=== PATIENT | male | born 1940 | race Caucasian/White ===

== ENCOUNTER → 2017-01-07 | Outpatient (CLI) | payer OTHER ==
[~2017-01-07] MED LIST: ASCAUNK PO; CMD5 PO; EPP3/2 IM; LISI-729 PO; LPRUNK PO; MXZC25 PO; NAPR-1169 PO; PRLSR20 PO; RED600TA PO; TRAM-10 PO; [UNRECOGNIZED DRUG - OTHER] PO
[2017-01-07 12:56] LABS: BASO % 0.5 %; BASO ABS # 0.03 K/uL (0-0.2); COMPLETE YES; EOS % 4.1 %; HEMATOCRIT 46.5 % (42-52); IG% 0.2 %; LYMPH % 24.2 %; LYMPH ABS # 1.43 K/uL (1.2-3.4); MEAN CELL VOLUME 96.9 fL (80-100); MEAN CORPUSCULAR HEMOGLOBIN 32.9 pg (25-34); MEAN PLATELET VOLUME 11.4 fL (7.4-10.4); MONO % 8.4 %; NEUT % 62.6 %; PLATELET COUNT 175 K/uL (130-400); WHITE BLOOD COUNT 5.92 K/uL (4.8-10.8)
[2017-01-07 13:01] LABS: ALT/SGPT 41 U/L (12-78); BLOOD UREA NITROGEN 17 mg/dl (7-18); CALCIUM 9.2 mg/dl (8.5-10.1); CARBON DIOXIDE 29 mmol/L (21-32); CHOLESTEROL 190 mg/dl (0-200); CREATININE 1.13 mg/dl (0.60-1.40); GLUCOSE 183 mg/dl (70-99)
[2017-01-07 13:09] LABS: ESTIMATED AVERAGE GLUCOSE 128 mg/dl; HA1C FLAG Normal (Normal)
[2017-01-07 13:45] LABS: ALB/GLOB RATIO 0.9 (0.9-2); ALKALINE PHOSPHATASE 78 U/L (45-117); AST/SGOT 22 U/L (15-37); CHLORIDE 102 mmol/L (98-107); CHOLESTEROL/HDL RATIO 4.4; HDL CHOLESTEROL 43 mg/dl; LDL CHOLESTEROL CALCULATED 113 mg/dl; SODIUM 137 mmol/L (136-145); TRIGLYCERIDES 168 mg/dl (0-150); VERY LOW DENSITY LIPOPROT CALC 34 mg/dl
== END | disposition home or self-care (01) ==
LOC: C.LABPVFM 09:49
PROVIDERS: ATTEND Nurse Practitioner Family
DX: I10 Essential (primary) hypertension (principal); I48.91 Unspecified atrial fibrillation; E78.5 Hyperlipidemia, unspecified; I25.10 Atherosclerotic heart disease of native coronary artery without angina pectoris; R73.01 Impaired fasting glucose

== ENCOUNTER → 2017-05-11 | Outpatient (CLI) | payer OTHER ==
[2017-05-11 13:46] LABS: HEMOGLOBIN A1C 6.3 % (4.5-5.6)
[2017-05-11 14:52] LABS: ALBUMIN 3.5 gm/dl (3.4-5.0); ALT/SGPT 43 U/L (12-78); BLOOD UREA NITROGEN 10 mg/dl (7-18); CALCIUM 9.2 mg/dl (8.5-10.1); CARBON DIOXIDE 27 mmol/L (21-32); CHOLESTEROL 179 mg/dl (0-200); CREATININE 1.08 mg/dl (0.60-1.40); GLUCOSE 153 mg/dl (70-99); POTASSIUM 3.8 mmol/L (3.5-5.1); SODIUM 139 mmol/L (136-145)
[2017-05-11 14:57] LABS: ALKALINE PHOSPHATASE 65 U/L (45-117); AST/SGOT 25 U/L (15-37); LDL CHOLESTEROL CALCULATED 109 mg/dl; TOTAL PROTEIN 7.1 gm/dl (6.4-8.2)
== END | disposition home or self-care (01) ==
LOC: C.LABPVFM 11:34
PROVIDERS: ATTEND Family Medicine
DX: Z00.00 Encounter for general adult medical examination without abnormal findings (principal)

== ENCOUNTER 2023-02-23 17:05 | Inpatient (IN) ==
--- NOTE | 2023-02-23 17:18 | Emergency Department Note ---
Impression & Plan Atrial fibrillation with rapid ventricular response, Non-ST elevation MD (NSTEMI), CHF (congestive heart failure), Thrombocytopenia, Acute hypokalemia ED Provider Note HISTORY OF PRESENT ILLNESS: Patient is an 82-year-old male presenting with shortness of breath. Patient presents via EMS after his [id number] found him breathing rapidly earlier today. Patient reports he was feeling short of breath. 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 On EMS arrival, the patient's heart rate was in the 180s. He did not initially want to go to the hospital but was successfully talked into being evaluated. Patient reports a history of atrial fibrillation and CHF. He is on Coumadin but reports that he has not been taking it as he is supposed to. He states that he has no chest pain and does not have any palpitations. He states that earlier today he was bending over to pick something up off the ground when he got dizzy when he stood up and bumped his head on a stool. He denies loss of consciousness. He denies any abdominal pain. Denies any recent fevers or cough. ROS: as above PHYSICAL EXAM: Constitutional: Patient appears in no acute distress. HENT: Head: Normocephalic and atraumatic. Eyes: EOMI, PERRL Mouth/Throat: Mucous membranes moist. Neck: Trachea midline. Neck supple. Cardiovascular: Tachycardic with a regular rhythm. No murmurs, rubs or gallops. Intact distal pulses. Pulmonary/Chest: No respiratory distress. Breath sounds clear and equal bilaterally. Abdominal: Abdomen soft, no tenderness, rebound or guarding. Musculoskeletal: No edema, tenderness or deformity noted. Skin: Warm and dry. No rash, erythema, pallor or cyanosis Psychiatric: Appropriate mood and affect for situation. Neurological: Alert and keenly responsive. CN II-XII grossly intact, moving all extremities equally and fully. MDM: - Vitals signs showed tachycardia. - History obtained via patient. Patient presents with shortness of breath. Patient reportedly was having shortness of breath and was tachypneic today and [id number] called 911. Patient reports a history of A-fib and CHF. He is on Coumadin but states he has not been taking it as prescribed because he has missed some doses. Denies any chest pain or palpitations on arrival. He reports that he did fall earlier today secondary to getting dizzy when he stood up. Denies loss of consciousness. Denies any recent fevers or cough. - Chronic conditions affecting care: Afib; CAD; CAD; CHF; HTN; HLD - Differential diagnoses include, but are not limited to: Congestive heart failure; acute coronary syndrome; COPD/asthma exacerbation; pulmonary edema; dysrhythmia - Order placed for continuous cardiac monitoring. At this time, monitor showed rate of 132 bpm with irregular rhythm rhythm, per my interpretation. - External medical records reviewed. EMS run sheet was reviewed. Patient was given a total of 20 mg of IV Cardizem and route of 500 cc of fluid. - EKG interpreted by myself showed atrial fibrillation with rapid ventricular rate. Rate 129 bpm. QT 278. No acute ischemic changes noted. - Laboratory workup interpreted by myself showed leukocytosis (WBC 15.6); thrombocytopenia (plt 115); elevated anion gap (17); hypokalemia (K 3.2); elevated BNP (581); NSTEMI (troponin 116.8); normal TSH - COVID/flu/RSV negative - CXR showed cardiomegaly, per my interpretation. - Patient's heart rate was initially in the 120s on arrival after he got 20 mg bolus of Cardizem. However, his heart rate started to increase to the 140s to 150s range. He was started on a Cardizem drip. - Discussed case with patient's plastics nurse, Dr. Flynn. He recommended Lopressor dosing. Reports that the patient is in chronic A-fib and need to identify what is driving his rapid rate at this point. 5 mg of IV Lopressor ordered. - Discussion was had with client care coordinator about patient's case and need for admission - Hospitalist consulted for admission. Requested patient be given two runs of IV potassium, 40 mEq PO potassium and 1g IV magnesium. These electrolyte replacements were ordered. - [facility] and [facility]. I have personally spent 51 minutes of critical care time in the direct management of this patient. This includes bedside care, interpretation of diagnostic studies, and testing, discussion with consultants, patient, and family members, and other required patient management activities. This 51 minutes is in excess of all separately billable procedures. 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 Permanent atrial fibrillation CAD (coronary artery disease) Cardiomyopathy Carotid artery stenosis, asymptomatic Chest wall pain Dyslipidemia History of stroke without residual deficits Hyperglycemia HTN (hypertension) Spinal stenosis Vitamin D deficiency Impaired fasting glucose Peripheral vascular disease Surgical History S/P prostatectomy History of tonsillectomy Family History Uncle Colorectal cancer Father Myocardial infarction Grandfather (Paternal) Myocardial infarction Denies family history of Ovarian cancer Prostate cancer Breast cancer Social History (Updated 10/27/22 @ 10:31 by Vero Prakash LPN) Smoking Status: Never smoker Tobacco Type: Smokeless Tobacco (Dip or Chew) Second Hand Exposure: No; Do You Dip or Chew Tobacco: Yes; Hx Alcohol Use: No Hx Substance Use: No Preferred Language: German Communication Ability: Effective Visual Impairment: Limited Hearing Ability: Normal 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 Beliefs That Will Affect Care: None marital status: Current Living Situation: Spouse current occupational status: retired How many Children do You have: 3 Feels Safe at Home: Yes Childhood Exposure to Second-Hand Smoke: Yes Diet: regular caffeine: Yes (COFFEE) during the past year weight has: remained stable Dental Care, Regularly: No Physical Activity Frequency: Does not Exercise Seatbelt Use: always Sunscreen Use: No Do you think of yourself as: straight/heterosexual Gender Identity: Male Assistive Devices: Cane, Denture - Upper, Denture - Lower, Glasses and Walker Allergies Allergies Allergy/AdvReac Type Severity Reaction Status Date / Time Cephalosporins Allergy Severe ANAPHYLAXIS Verified 10/27/22 10:26 TO PCN diazepam Allergy Unknown UNKNOWN Verified 10/27/22 10:26 Penicillins Allergy Unknown ANAPHYLAXIS Verified 10/27/22 10:26 simvastatin Allergy Unknown MYALGIA Verified 10/27/22 10:26 shellfish derived Allergy Verified 10/27/22 10:26 codeine AdvReac Mild HEADACHE Verified 10/27/22 10:26 shrimp AdvReac Verified 10/27/22 10:26 Home Meds Home Medications Medication Instructions Recorded Confirmed acetaminophen 500 mg tablet 1,000 mg PO Q8H 12/13/19 10/27/22 (Tylenol Extra Strength) calcium carbonate 600 mg-vitamin 1 tab PO DAILY 12/13/19 10/27/22 D3 20 mcg (800 unit) tablet (Caltrate with Vitamin D3) Previous Rx's Medication Instructions Recorded linaclotide 145 mcg capsule 145 mcg PO DAILY #30 caps 05/08/20 (Linzess) nitroglycerin 0.4 mg sublingual 0.4 mg sublingual Q5M PRN chest 08/20/20 tablet pain #25 tabs betamethasone dipropionate 0.05 % 1 applic topical DAILY #60 mL 04/30/21 lotion lactulose 10 gram/15 mL oral 20 g (30 mL) PO BID #473 mL 07/23/21 solution (Enulose) triamterene 37.5 1 cap PO WK #15 caps 08/31/21 mg-hydrochlorothiazide 25 mg capsule metoprolol tartrate 100 mg tablet 50 mg (1/2 x 100 mg) PO Q12H #90 11/26/21 tabs warfarin 5 mg tablet 5 mg PO .COMPLEX #60 tabs 11/27/21 gabapentin 300 mg capsule 300 mg PO BID #60 caps 03/31/22 omeprazole 20 mg capsule,delayed 20 mg PO DAILY #30 caps 05/30/22 release Results & Data (ED) Vital Signs Vital Signs - 24 hr 02/23/23 17:13 02/23/23 17:34 02/23/23 17:35 Temperature 36.9 C Temperature Source Oral Pulse Rate 126 H 148 H 132 H Pulse Rate from SpO2 Sensor 128 H Pulse Rhythm Respiratory Rate 29 H 22 Respiratory Effort / Characteristics Spontaneous Accessory Muscle Use Respiratory Depth Shallow Blood Pressure 118/86 117/82 Blood Pressure Mean 96 93 Pulse Oximetry 95 93 Oxygen Delivery Method Room Air Sepsis Recent Fever Within 48 Hours No Sepsis New/Unexplained Change in Mental Status No Sepsis Action Taken by Nursing Physician Notified 02/23/23 17:50 02/23/23 17:55 02/23/23 18:02 Temperature Temperature Source Pulse Rate 142 H 121 H Pulse Rate from SpO2 Sensor 134 H Pulse Rhythm Irregular Respiratory Rate 24 26 H Respiratory Effort / Characteristics Respiratory Depth Blood Pressure Blood Pressure Mean Pulse Oximetry 99 92 Oxygen Delivery Method Room Air Room Air Sepsis Recent Fever Within 48 Hours Sepsis New/Unexplained Change in Mental Status Sepsis Action Taken by Nursing 02/23/23 18:03 02/23/23 18:30 02/23/23 19:00 Temperature Temperature Source Pulse Rate 118 H 150 H 127 H Pulse Rate from SpO2 Sensor 120 H 155 H 138 H Pulse Rhythm Respiratory Rate 29 H 29 H 27 H Respiratory Effort / Characteristics Respiratory Depth Blood Pressure 121/97 102/88 142/89 H Blood Pressure Mean 105 92 106 Pulse Oximetry 92 95 95 Oxygen Delivery Method Sepsis Recent Fever Within 48 Hours Sepsis New/Unexplained Change in Mental Status Sepsis Action Taken by Nursing 02/23/23 19:29 Temperature Temperature Source Pulse Rate 154 H Pulse Rate from SpO2 Sensor Pulse Rhythm Respiratory Rate Respiratory Effort / Characteristics Respiratory Depth Blood Pressure 121/90 Blood Pressure Mean Pulse Oximetry Oxygen Delivery Method Sepsis Recent Fever Within 48 Hours Sepsis New/Unexplained Change in Mental Status Sepsis Action Taken by Nursing Laboratory Data 02/23/23 17:35 02/23/23 17:35 Lab Results 02/23/23 02/23/23 Range/Units 17:35 17:45 WBC 15.60 H (4.8-10.8) K/ul RBC 4.02 L (4.70-6.10) M/uL Hgb 13.1 L (14.0-18.0) g/dl Hct 37.5 L (42.0-52.0) % MCV 93.3 (80.0-100.0) fL MCH 32.6 (25.0-34.0) pg MCHC 34.9 (32.0-36.0) g/dL RDW Std Deviation 45.2 (36.4-46.3) fL RDW Coeff of Jean-Paul 13.4 (11.5-14.5) % Plt Count 115 L (130-400) K/uL MPV 11.7 (9.4-12.4) fL Immature Gran % (Auto) 0.9 % Neut % (Auto) 83.3 % Lymph % (Auto) 3.9 % [place] % (Auto) 11.8 % Eos % (Auto) 0.0 % Baso % (Auto) 0.1 % Neut # (Auto) 13.00 H (1.40-6.50) K/uL Lymph # (Auto) 0.61 L (1.20-3.40) K/uL [place] # (Auto) 1.84 H (0.11-0.59) K/uL Eos # (Auto) 0.00 (0.00-0.50) K/uL Baso # (Auto) 0.01 (0.00-0.20) K/uL Immature Gran # (Auto) 0.14 (0.01-0.20) K/uL PT 13.5 H (9.0-12.0) Seconds INR 1.2 H (0.9-1.1) Sodium 135 L (136-145) mmol/L Potassium 3.2 L (3.5-5.1) mmol/L Chloride 101 (98-107) mmol/L Carbon Dioxide 17 L (21-32) mmol/L Anion Gap 17 H (3-11) BUN 15 (6-23) mg/dl Creatinine 1.13 (0.6-1.4) mg/dl Est Cr Clr Drug Dosing 53.7 ml/min Est GFR ( Amer) 69.8 ml/min Est GFR (Non-Af Amer) 60.2 ml/min BUN/Creatinine Ratio 13.3 (10-20) Glucose 159 H (70-99(Fasting)) mg/dl Calcium 9.0 (8.6-10.3) mg/dl Magnesium 1.9 (1.7-2.4) mg/dl Total Bilirubin 1.6 H (0.2-1.0) mg/dl AST 49 H (13-39) U/L ALT 23 (7-52) U/L Alkaline Phosphatase 42 (34-104) U/L Troponin I High Sens 116.8 H* (0-20) pg/ml B-Natriuretic Peptide 581 H (0-100) pg/ml Total Protein 6.2 (6.0-8.3) gm/dl Albumin 3.3 L (3.4-5.0) gm/dl Globulin 2.9 (2.5-4.0) gm/dl Albumin/Globulin Ratio 1.1 (0.9-2) TSH 1.234 (0.300-4.500) uIu/ml SARS-CoV-2 (PCR) NEGATIVE (Negative) Administered Medications Discontinued Medications Aspirin (Aspirin Chew 324 Mg) 324 mg PO NOW STA Stop: 02/23/23 19:04 Last Admin: 02/23/23 19:29 Dose: 324 mg Documented By: RASHEEDA Diltiazem HCl 125 mg/ Dextrose 125 mls @ 5 mls/hr IV .Q24H GUCCI; Protocol Stop: 03/25/23 18:14 Last Admin: 02/23/23 18:57 Dose: 5 mg/hr, 5 mls/hr Documented By: RASHEEDA Co-signed By: EMILY Metoprolol Tartrate (Metoprolol Tartrate 1 Mg/Ml Vial) 5 mg IV NOW STA Stop: 02/23/23 19:08 Last Admin: 02/23/23 19:29 Dose: 5 mg Documented By: RASHEEDA Miscellaneous (Stat Iv Infusion Titration Per Protocol) 1 each N/A NOW STA Stop: 02/23/23 18:12 Last Admin: 02/23/23 18:57 Dose: 1 each Documented By: RASHEEDA Imaging Data Radiologist's Impression: Head CT 02/23/23 17:12 CT SCAN OF THE BRAIN WITHOUT IV CONTRAST CLINICAL HISTORY: Fall. Head injury. COMPARISON STUDY: CT of the brain dated 03/17/2010. TECHNIQUE: Unenhanced axial CT scan of the brain is performed from the vertex to the skull base. A dose lowering technique was utilized adhering to the principles of ALARA. CT DOSE: 703.85 mGy.cm FINDINGS: Brain parenchyma: There is age-related involutional change noting moderate subcortical and periventricular microangiopathic disease. There is no hemorrhage, mass effect, or evidence of acute territorial ischemia by CT criteria. Hoang-white matter differentiation is preserved. No extra-axial fluid collection is seen. Ventricles, sulci, cisterns: Prominent secondary to involutional change. Intracranial vasculature: There is atherosclerotic calcification of the cavernous carotid and vertebral artery. Calvarium: The skeletal structures are osteopenic. No depressed calvarial fracture is seen. Soft tissues: There is a small left frontal scalp contusion. Sinuses and mastoids: The paranasal sinuses are clear. The mastoid air cells are well pneumatized. Orbits: The bony orbits are grossly intact. There are bilateral ocular lens implants. IMPRESSION: There is no hemorrhage, mass effect, or evidence of acute territorial ischemia by CT criteria. ACT 112: Negative or not required by law. Electronically signed by: Severo Crevantes M.D. 02/23/2023 6:05 PM Chest X-Ray 02/23/23 17:16 SINGLE VIEW CHEST CLINICAL HISTORY: Dysrhythmia. Dyspnea. FINDINGS: An AP, portable, upright chest radiograph is compared to study dated 11/09/2010. The heart is enlarged noting atherosclerotic calcification of the thoracic aorta. The pulmonary vasculature is noncongested. Chronic interstitial thickening is similar to previous. Dependent airspace opacities are seen at both lung bases, left greater than right. No large pleural effusion or pneumothorax is seen. The skeletal structures are osteopenic. The bony thorax is grossly intact. IMPRESSION: 1. Cardiomegaly without radiographic evidence of congestive failure. 2. Dependent airspace opacities are seen bilaterally, left greater than right. This likely represents atelectasis. Correlate clinically for evidence of a superimposed pneumonitis. ACT 112: Negative or not required by law. Electronically signed by: Severo Cervantes M.D. 02/23/2023 5:35 PM Discharge Plan Visit Data Chief Complaint: Tachycardia Stated Complaint: SOB ED Provider: Lilliam Almeida Discharge Problem: Atrial fibrillation with rapid ventricular response, Non-ST elevation MD (NSTEMI), CHF (congestive heart failure), Thrombocytopenia, Acute hypokalemia Forms Stand Alone Forms: [employer] Prescriptions Prescriptions: No Action Linzess 145 mcg capsule 145 mcg PO DAILY Qty: 30 5RF lactulose [Enulose] 10 gram/15 mL solution 20 g PO BID Qty: 473 3RF Hold Instructions: not working very well. changed to senokot S triamterene-hydrochlorothiazid 37.5-25 mg capsule 1 cap PO WK Qty: 15 3RF warfarin 5 mg tablet 5 mg PO .COMPLEX Qty: 60 5RF Protocol: Dose Management Condition: Monday Dose/Route: 2.5 mg Instruction: 0.5 x 5 mg tablets Condition: Monday Dose/Route: 5 mg Instruction: 1 x 5 mg tablet Condition: Monday Dose/Route: 2.5 mg Instruction: 0.5 x 5 mg tablets Condition: Monday Dose/Route: 5 mg Instruction: 1 x 5 mg tablet Condition: Dose/Route: 2.5 mg Instruction: 0.5 x 5 mg tablets Condition: Monday Dose/Route: 5 mg Instruction: 1 x 5 mg tablet Condition: Monday Dose/Route: 2.5 mg Instruction: 0.5 x 5 mg tablets Protocol Text: Adjustment Start Date: Monday03/30/21 INR Value: 2.8 INR Date: 03/30/21 Recheck Date: 04/29/21 Rx Instructions: Take 1 tablet on Monday and Fridays and then 0.5 tablet on all other days. gabapentin 300 mg capsule 300 mg PO BID Qty: 60 2RF omeprazole 20 mg capsule,delayed release(DR/EC) 20 mg PO DAILY Qty: 30 6RF calcium carbonate-vitamin D3 [Caltrate with Vitamin D3] 600 mg(1,500mg) -800 unit tablet 1 tab PO DAILY acetaminophen [Tylenol Extra Strength] 500 mg tablet 1,000 mg PO Q8H nitroglycerin 0.4 mg tablet, sublingual 0.4 mg sublingual Q5M PRN (Reason: chest pain) Qty: 25 5RF Rx Instructions: do not exceed 3 doses per episode betamethasone dipropionate 0.05 % lotion 1 applic topical DAILY Qty: 60 1RF Rx Instructions: Apply to the scalp as needed for itching or redness. metoprolol tartrate 100 mg tablet 50 mg PO Q12H Qty: 90 3RF Referrals Referrals: Sole Ibarra MD [Primary Care Provider] -
--- NOTE | 2023-02-23 17:37 | XRay Report ---
SINGLE VIEW CHEST CLINICAL HISTORY: Dysrhythmia. Dyspnea. FINDINGS: An AP, portable, upright chest radiograph is compared to study dated 11/09/2010. The heart i s enlarged noting atherosclerotic calcification of the thoracic aorta. The pulmonary vasculature is n oncongested. Chronic interstitial thickening is similar to previous. Dependent airspace opacities are seen at both lung bases, left greater than right. No large pleural effusion or pneumothorax is seen. The skeletal structures are osteopenic. The bony thorax is grossly intact. IMPRESSION: 1. Cardiomegaly without radiographic evidence of congestive failure. 2. Dependent airspace opacities are seen bilaterally, left greater than right. This likely represents atelectasis. Correlate clinically for evidence of a superimposed pneumonitis. ACT 112: Negative or not required by law. Electronically signed by: Severo Cervantes M.D. 02/23/2023 5:35 PM
--- NOTE | 2023-02-23 18:08 | CT Scan Report ---
CT SCAN OF THE BRAIN WITHOUT IV CONTRAST CLINICAL HISTORY: Fall. Head injury. COMPARISON STUDY: CT of the brain dated 03/17/2010. TECHNIQUE: Unenhanced axial CT scan of the brain is performed from the vertex to the skull base. A do se lowering technique was utilized adhering to the principles of ALARA. CT DOSE: 703.85 mGy.cm FINDINGS: Brain parenchyma: There is age-related involutional change noting moderate subcortical and periventri cular microangiopathic disease. There is no hemorrhage, mass effect, or evidence of acute territorial ischemia by CT criteria. Hoang-white matter differentiation is preserved. No extra-axial fluid collec tion is seen. Ventricles, sulci, cisterns: Prominent secondary to involutional change. Intracranial vasculature: There is atherosclerotic calcification of the cavernous carotid and vertebr al artery. Calvarium: The skeletal structures are osteopenic. No depressed calvarial fracture is seen. Soft tissues: There is a small left frontal scalp contusion. Sinuses and mastoids: The paranasal sinuses are clear. The mastoid air cells are well pneumatized. Orbits: The bony orbits are grossly intact. There are bilateral ocular lens implants. IMPRESSION: There is no hemorrhage, mass effect, or evidence of acute territorial ischemia by CT byron weller. ACT 112: Negative or not required by law. Electronically signed by: Severo Cervantes M.D. 02/23/2023 6:05 PM
[2023-02-23] MEDS ORDERED: STAT IV Infusion **Titration per Protocol STA (18:11)
[2023-02-23 18:12] LABS: Basophils # (auto) 0.01 K/uL (0.00-0.20); Basophils % (auto) 0.1 %; Hematocrit (blood only) 37.5 % (42.0-52.0); Hemoglobin 13.1 g/dl (14.0-18.0); Immature Granulocytes # (auto) 0.14 K/uL (0.01-0.20); Immature Granulocytes % (auto) 0.9 %; Lymphocytes # (auto) 0.61 K/uL (1.20-3.40); Lymphocytes % (auto) 3.9 %; Mean Corpuscular Hemoglobin 32.6 pg (25.0-34.0); Mean Corpuscular Hgb Conc 34.9 g/dL (32.0-36.0); Mean Corpuscular Volume 93.3 fL (80.0-100.0); Mean Platelet Volume 11.7 fL (9.4-12.4); Monocytes # (auto) 1.84 K/uL (0.11-0.59); Monocytes % (auto) 11.8 %; Neutrophils % (auto) 83.3 %; Platelet Count 115 K/uL (130-400); RDW Coefficient of Variation 13.4 % (11.5-14.5); RDW Standard Deviation 45.2 fL (36.4-46.3); Red Blood Count 4.02 M/uL (4.70-6.10)
[2023-02-23] MEDS ORDERED: dilTIAZem HCL 125 MG in DEXTROSE 5% 100 ML IV SCH (18:15)
[2023-02-23 18:24] LABS: Albumin Globulin Ratio 1.1 (0.9-2); Albumin Level 3.3 gm/dl (3.4-5.0); BUN Creatinine Ratio 13.3 (10-20); Bilirubin,Total 1.6 mg/dl (0.2-1.0); Creatinine Clr Calc Pharmacy 53.7 ml/min; Est GFR (African American) 69.8 ml/min; Est GFR (Non-African American) 60.2 ml/min; Globulin 2.9 gm/dl (2.5-4.0); Magnesium 1.9 mg/dl (1.7-2.4); Total Protein 6.2 gm/dl (6.0-8.3)
[2023-02-23 18:28] LABS: Troponin I High Sensitivity 116.8 pg/ml (0-20)
[2023-02-23 18:33] LABS: INR 1.2 (0.9-1.1); Prothrombin Time 13.5 Seconds (9.0-12.0)
[2023-02-23 18:35] LABS: Thyroid Stimulating Hormone 1.234 uIu/ml (0.300-4.500)
[2023-02-23 18:40] LABS: Potassium 3.2 mmol/L (3.5-5.1)
[2023-02-23] MEDS ORDERED: ASPIRIN CHEW 324 MG PO STA (19:03)
[2023-02-23] MEDS ORDERED: METOPROLOL TARTRATE 1 MG/ML VIAL IV STA (19:07)
[2023-02-23] MEDS ORDERED: POTASSIUM CHLORIDE CRTAB 20 MEQ TABCR PO STA (19:40)
[2023-02-23] MEDS ORDERED: MAGNESIUM SULFATE / D5W 1 GM/100 ML BAG IV STA (19:40)
[2023-02-23] MEDS ORDERED: Heparin IV Adult Wt-Based Low-Dose w/ INITIAL Bolus Protocol IV SCH (20:16)
--- NOTE | 2023-02-23 20:20 | History & Physical Report ---
Date of Service February 23, 2023 Assessment & Plan (1) Atrial fibrillation with rapid ventricular response: Plan: -Admit to the PCU on tele and pulse oximetry -Currently hemodynamically stable, stable on RA, and HR in the 110's -Presented to the ED via EMS after being found on the ground by family and noted to be in afib RVR with HR in the 180's by EMS on arrival -Has remained hemodynamically stable despite his HR -S/P 20 mg Cardizem by EMS, started on cardizem drip in the ED which was stopped per cardiology recs and given 5 mg IV lopressor prior to admission -At this time his afib RVR is most likely due to a combination of medical non- compliance in combination with hypokalemia; however, he has been non-compliant with his Warfarin, has a subtherapeutic INR at 1.2, and worsening LLE swelling >D-dimer ordered on admission is significantly elevated at 12,250 >Unfortunately he has a shellfish allergy so we cannot obtain a CTA with PE protocol at this time -We will start the patient on a standard dose, weight based heparin drip with bolus empirically for possible PE -Will need to monitor the patient's platelets closely while on the heparin drip -Will give a dose of his home 50 mg metoprolol tartrate now then continue his BID dosing -Will discontinue the diltiazem drip at this time and continue with prn IV lopressor for sustained HR > 120 bpm -While his LE's are swollen and his BNP is elevated in the 500's he is clinically dry on exam with a CK of 2730, will give 1L Plasmalyte stat -Patient ordered 40 mg PO KCL, 10 meq IV KCL, and 1gm IV mag sulfate by the ED after recommended by the Hospital Medicine team -Will obtain TTE tomorrow for further evaluation -Continue heparin drip for DVT PPX as well -HH/DMII diet with 2gm sodium restriction, aspiration precautions -AM CBC, CMP, mag, PT/INR (2) Leukocytosis: Plan: -Patient noted to have a leukocytosis of 15 with neutrophil predominance of 13 -Has been afebrile but his procal is elevated at 1.47 with stable renal function -At this time his most likely source would be possible pneumonia with CXR findings or UTI with his hx of urinary retention and recent increased urinary frequency -Unfortunately he has a listed history of anaphylaxis to Penicillins, spoke with the pharmacy who check [facility] and [facility], no hx of receiving cephalosporins in either -For now we will treat him with Levaquin to cover both possible sources -Blood cultures obtained, waiting for UA with straight cath -Continue to follow infectious workup and tailor abx accordingly (3) High anion gap metabolic acidosis: Plan: -AG of 17 with bicarb of 17 on arrival -Likely driven by his dehydration and lactate of 3 on admission -Has been stable on RA and hemodynamically stable -ABG obtained on admission shows a respiratory alkalosis with pH of 7.49, pCO2 of 25, and pO2 of 85 -History alkalosis is likely the patient compensating for his metabolic acidosis -Will continue with IV hydration and empiric treatment of infection of unknown origin at this time -Will order am ABG for follow up (4) SOB (shortness of breath): Plan: -Patient's family reported respiratory distress on arrival -CXR is without signs of congestive failure -Likely multifactorial including afib RVR, hyperventilation to compensate for his metabolic acidosis, possible pneumonia and possible PE -Currently breathing comfortable on admission and hemodynamically stable -Continue to monitor respiratory status closely, follow am abg, continue heparin drip and Levaquin for now (5) Elevated troponin: Plan: -Initial high sen trop elevated at 116 ---> 137 on 2 hour repeat -Patient currently denies chest pain -Did have t-wave inversion in the anterolateral leads on ECG while HR was in the 130's -At this time his elevated troponin is most likely due to demand from afib RVR and dehydration -Regardless, he will be treated with a heparin drip empirically for PE at this time as well -Will continue to trend high sen trop overnight, continue to monitor on tele -Follow TTE tomorrow (6) Elevated CK: Plan: -Initial CK elevated at 2730 -Likely due to his recent falls and dehydration -Renal function is stable -Currently receiving 1L LR bolus on admission -Will continue maintenance LR at 80 mL/hr overnight for hydration but to avoid volume overload with his hx of HFrEF (7) Fall: Plan: -Patient has reportedly been falling frequently over the past few months per family -Was found on the ground today by family -Abrasions on the frontal scalp, right shoulder, and BL knees but is otherwise without trauma -CT head and chest xray are negative for acute trauma -CK ordered on admission was 2730 -Fall precautions, PT/OT/CM consults placed (8) Acute hypokalemia: Plan: -Noted to be 3.2 today -Mag 1.9 -Likely due to poor oral intake -Currently receiving 40 mg PO KCL and 10 meq IV KCL in the ED -Continue to monitor on tele and monitor daily potassium level (9) Thrombocytopenia: Plan: -Platelets noted to be 115 today -No signs of bleeding -Could be due to acute illness but can't rule out liver abnormality at this time -Continue to monitor daily CBC -Will obtain RUQ US for further evaluation (10) CAD (coronary artery disease): Plan: -Hx of occluded/collateralized LAD, no other vessels with significant stenoses at cath 2010 per the last Cardiology clinic note as of 11/2021 -Patient denies current chest pain -Has not been compliant with Warfarin -Continue heparin drip for now until he is stable, will have to be bridged back on Warfarin -If patient will be going home on discharge may need to consider a DOAC that would not require INR testing (11) Failure to thrive in adult: Plan: -PT/OT/Case management consults (12) Impaired fasting glucose: Plan: -Last A1c in October of 2022 with 5.7 -Glucose on arrival is 159 -Will start BSG checks ACHS, goal is 110-140 -Start CF 50 ACHS for now -Monitor am A1c -HH/DMII diet (13) Elevated bilirubin: Plan: -Total bili elevated at 1.6 -Patient is without upper abdominal discomfort, nausea, or vomiting -Other LFT's are WNL -Likely due to dehydration -Follow RUQ US ordered for thrombocytopenia as well (14) Swelling of both lower extremities: Plan: -Follow LE venous doppler and RUQ us -Monitor volume status closely with hx of HFrEF Plan The patient was discussed with Dr. 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 On arrival EMS found the patient to be in afib RVR with HR in the 180's but otherwise stable. EMS gave the patient 20 mg Cardizem in route. On arrival to the ED the patient was noted to be in afib RVR with HR in the 150's but otherwise stable. Labs were significant for a leukocytosis of 15 with neutrophil predominance of 13, platelets of 115, lymphocyte count of 0.61, INR of 1.2, potassium of 3.2, AG of 17 with Bicarb of 17, total bili of 1.6, initial high sen trop of 116, BNP of 581 (no previous to compare). CT of the brain/head was negative for acute findings. Chest xray was read as "1. Cardiomegaly without radiographic evidence of congestive failure. 2. Dependent airspace opacities are seen bilaterally, left greater than right. This likely represents atelectasis. Correlate clinically for evidence of a superimposed pneumonitis.". The patient was initially placed on a diltiazem drip in the ED without adequate response, they spoke with cardiology who recommended trying IV lopressor. He was given one dose of 5 mg IV lopressor in the ED with improvement in HR to the 110's. Prior to admission the patient was also given 40 meq PO KCL, 10 meq IV KCL, and 1gm IV mag sulfate per hospital medicine recommendations. At the time of the exam the patient was sitting in bed in no acute distress, he appears disheveled. He states that he has not been taking care of himself as he lives with his and "we both have health issues". He states that he has likely not been taking his medications as prescribed. He does note that he took one dose of SL nitroglycerine last week for chest pain. When asked, he states that he has been experiencing increased WOB for the past "few weeks". He denies recent cough and wheezing. He denies any chest pain over the past week. When asked about falls he states that "I went to my hands and knees earlier today". When asked why he states "I had to pick something up". He thinks he hit his head off a stool. He has lower abdominal pain which he states is chronic from constipation. He has been having increased urinary frequency and the feeling of incomplete bladder emptying but denies dysuria, hematuria, melena, and recent bloody BM's. In regards to his LLE swelling he states that this is chronic. We discussed code status, he wishes to be a full code. After obtaining the patient's permission I called and spoke to his Son (Alcides Nitish [phone]) and his Son's (Josephine Nitish /[phone]) to obtain further information. They explain that they are concerned for the poor living conditions of the patient and his . Alcides and his help to get groceries for the patient and his and help to obtain their prescriptions, Josephine is an RN. They state that they arrived to the patient's home today and found him on the ground, in significant respiratory distress. Josephine called EMS at that time. She states that the patient has been falling frequently and is unable to care for himself or his . She states that she checked the patient's pill pox and noticed that he has been out of Warfarin and Metoprolol, she also believes he is out of his antihypertensive/diuretic. When asked about the left LE swelling she states that he has a history of swelling in that leg but that it is much more swollen than baseline. She also notes that the patient has lost "alot" of weight over the past year as he is not eating consistently or taking care of himself. Please refer to Dr. Florence's attestation for any changes to the treatment plan Allergies Allergy/AdvReac Type Severity Reaction Status Date / Time Cephalosporins Allergy Severe ANAPHYLAXIS Verified 10/27/22 10:26 TO PCN diazepam Allergy Unknown UNKNOWN Verified 10/27/22 10:26 Penicillins Allergy Unknown ANAPHYLAXIS Verified 10/27/22 10:26 simvastatin Allergy Unknown MYALGIA Verified 10/27/22 10:26 shellfish derived Allergy Verified 10/27/22 10:26 codeine AdvReac Mild HEADACHE Verified 10/27/22 10:26 shrimp AdvReac Verified 10/27/22 10:26 Home Medications Medication Instructions Recorded Confirmed Type acetaminophen 500 mg tablet 1,000 mg PO Q8H 12/13/19 10/27/22 History (Tylenol Extra Strength) calcium carbonate 600 mg-vitamin 1 tab PO DAILY 12/13/19 10/27/22 History D3 20 mcg (800 unit) tablet (Caltrate with Vitamin D3) linaclotide 145 mcg capsule 145 mcg PO DAILY #30 caps 05/08/20 10/27/22 Rx (Linzess) nitroglycerin 0.4 mg sublingual 0.4 mg sublingual Q5M PRN chest 08/20/20 10/27/22 Rx tablet pain #25 tabs betamethasone dipropionate 0.05 % 1 applic topical DAILY #60 mL 04/30/21 10/27/22 Rx lotion lactulose 10 gram/15 mL oral 20 g (30 mL) PO BID #473 mL 07/23/21 10/27/22 Rx solution (Enulose) triamterene 37.5 1 cap PO WK #15 caps 08/31/21 10/27/22 Rx mg-hydrochlorothiazide 25 mg capsule metoprolol tartrate 100 mg tablet 50 mg (1/2 x 100 mg) PO Q12H #90 11/26/21 10/27/22 Rx tabs warfarin 5 mg tablet 5 mg PO .COMPLEX #60 tabs 11/27/21 10/27/22 Rx gabapentin 300 mg capsule 300 mg PO BID #60 caps 03/31/22 10/27/22 Rx omeprazole 20 mg capsule,delayed 20 mg PO DAILY #30 caps 05/30/22 10/27/22 Rx release Past Med/Surg History Medical History (Updated 02/24/23 @ 16:26 by Roman Flynn MD) director long term care (current) use of anticoagulants Permanent atrial fibrillation CAD (coronary artery disease) Cardiomyopathy Carotid artery stenosis, asymptomatic Chest wall pain Dyslipidemia History of stroke without residual deficits Hyperglycemia HTN (hypertension) Spinal stenosis Vitamin D deficiency Impaired fasting glucose Peripheral vascular disease Surgical History S/P prostatectomy History of tonsillectomy Family History Uncle Colorectal cancer Father Myocardial infarction Grandfather (Paternal) Myocardial infarction Denies family history of Ovarian cancer Prostate cancer Breast cancer Social History Smoking Status: Never smoker Tobacco Type: Smokeless Tobacco (Dip or Chew) Second Hand Exposure: No; Do You Dip or Chew Tobacco: Yes; Hx Alcohol Use: Yes Hx Substance Use: No Preferred Language: Frisian Communication Ability: Effective Visual Impairment: Limited Hearing Ability: Normal Exercise Science Instructor Required: No Beliefs That Will Affect Care: None marital status: Current Living Situation: Spouse current occupational status: retired How many Children do You have: 3 Other Information That Helps Us Care for You: No Feels Safe at Home: Yes Safety Concerns: Feels Safe At This Time Childhood Exposure to Second-Hand Smoke: Yes Diet: regular caffeine: Yes (COFFEE) during the past year weight has: remained stable Dental Care, Regularly: No Physical Activity Frequency: Does not Exercise Seatbelt Use: always Sunscreen Use: No Do you think of yourself as: straight/heterosexual Gender Identity: Male Assistive Devices: Cane and Walker Physical Exam Physical Exam: Physical Exam: General: In no acute distress, stated age, malnourished, poor hygiene, non- toxic appearing HEENT: Patient with abrasions to the BL frontal scalp without signs of bleeding or other trauma, no scleral icterus, pupils around round, symmetrical, and reactive to light, dry mucus membranes, trachea midline, no thyromegaly Chest/Pulm: No respiratory distress, symmetrical chest expansion, clear breath sounds throughout Cardiac: irregular rate and rhythm, no murmurs noted Abdomen: Negative for ascites and bruising, normoactive bowel sounds, soft, non-tender to palpation throughout Musculoskeletal: Head abrasions as described above, patient with old scratches to the right shoulder and abrasions on the BL knees without signs of bleeding, otherwise no acute trauma on exam Extremities: Radial, dorsalis pedis, and posterior tibial pulses are intact and symmetrical, LLE with 3+ pitting edema, RLE with 1+ pitting edema Skin: as described above Neuro: Alert and oriented to person, place, month, year, no focal defects, CN II-XII tested and intact, symmetrical strength in the BL upper and lower extremities, no tremors noted Psych: No acute distress, calm and cooperative during the exam Results & Data Results & Data Vital Signs (Past 12 Hours) Vital Signs Temp Pulse Resp BP Pulse Ox O2 Del Method 02/23/23 19:30 143 H 30 H 121/90 95 02/23/23 19:29 154 H 121/90 02/23/23 19:00 142/89 H 02/23/23 19:00 127 H 27 H 142/89 H 95 02/23/23 18:30 150 H 29 H 102/88 95 02/23/23 18:03 118 H 29 H 121/97 92 02/23/23 18:02 121 H 26 H 92 02/23/23 17:55 142 H 24 99 Room Air 02/23/23 17:50 Room Air 02/23/23 17:35 132 H 02/23/23 17:34 148 H 22 117/82 93 02/23/23 17:13 36.9 C 126 H 29 H 118/86 95 Room Air Laboratory Results Abnormal lab results 02/23/23 02/23/23 02/23/23 Range/Units 17:35 20:05 20:32 WBC 15.60 H (4.8-10.8) K/ul RBC 4.02 L (4.70-6.10) M/uL Hgb 13.1 L (14.0-18.0) g/dl Hct 37.5 L (42.0-52.0) % Plt Count 115 L (130-400) K/uL Neut # (Auto) 13.00 H (1.40-6.50) K/uL Lymph # (Auto) 0.61 L (1.20-3.40) K/uL Monona # (Auto) 1.84 H (0.11-0.59) K/uL PT 13.5 H (9.0-12.0) Seconds INR 1.2 H (0.9-1.1) ABG pH 7.49 H (7.35-7.45) ABG pCO2 25 L (35-46) mmHg ABG O2 Saturation 98.0 H (90-95) % Sodium 135 L (136-145) mmol/L Potassium 3.2 L (3.5-5.1) mmol/L Carbon Dioxide 17 L (21-32) mmol/L Anion Gap 17 H (3-11) Glucose 159 H (70-99(Fasting)) mg/dl Lactate 3.1 H* (0.4-2.0) mmol/L Total Bilirubin 1.6 H (0.2-1.0) mg/dl AST 49 H (13-39) U/L Total Creatine Kinase 2730 H (30-223) U/L Troponin I High Sens 116.8 H* 137.4 H* (0-20) pg/ml B-Natriuretic Peptide 581 H (0-100) pg/ml Albumin 3.3 L (3.4-5.0) gm/dl Procalcitonin 1.47 H (0-0.5) ng/ml Diagnostic Findings Head CT 02/23/23 17:12 CT SCAN OF THE BRAIN WITHOUT IV CONTRAST CLINICAL HISTORY: Fall. Head injury. COMPARISON STUDY: CT of the brain dated 03/17/2010. TECHNIQUE: Unenhanced axial CT scan of the brain is performed from the vertex to the skull base. A dose lowering technique was utilized adhering to the principles of ALARA. CT DOSE: 703.85 mGy.cm FINDINGS: Brain parenchyma: There is age-related involutional change noting moderate subcortical and periventricular microangiopathic disease. There is no hemorrhage, mass effect, or evidence of acute territorial ischemia by CT criteria. Hoang-white matter differentiation is preserved. No extra-axial fluid collection is seen. Ventricles, sulci, cisterns: Prominent secondary to involutional change. Intracranial vasculature: There is atherosclerotic calcification of the cavernous carotid and vertebral artery. Calvarium: The skeletal structures are osteopenic. No depressed calvarial fracture is seen. Soft tissues: There is a small left frontal scalp contusion. Sinuses and mastoids: The paranasal sinuses are clear. The mastoid air cells are well pneumatized. Orbits: The bony orbits are grossly intact. There are bilateral ocular lens implants. IMPRESSION: There is no hemorrhage, mass effect, or evidence of acute territorial ischemia by CT criteria. ACT 112: Negative or not required by law. Electronically signed by: Severo Cervantes M.D. 02/23/2023 6:05 PM Chest X-Ray 02/23/23 17:16 SINGLE VIEW CHEST CLINICAL HISTORY: Dysrhythmia. Dyspnea. FINDINGS: An AP, portable, upright chest radiograph is compared to study dated 11/09/2010. The heart is enlarged noting atherosclerotic calcification of the thoracic aorta. The pulmonary vasculature is noncongested. Chronic interstitial thickening is similar to previous. Dependent airspace opacities are seen at both lung bases, left greater than right. No large pleural effusion or pneumothorax is seen. The skeletal structures are osteopenic. The bony thorax is grossly intact. IMPRESSION: 1. Cardiomegaly without radiographic evidence of congestive failure. 2. Dependent airspace opacities are seen bilaterally, left greater than right. This likely represents atelectasis. Correlate clinically for evidence of a superimposed pneumonitis. ACT 112: Negative or not required by law. Electronically signed by: Severo Cervantes M.D. 02/23/2023 5:35 PM ECG Additional Comments: Undetermined rhythm Nonspecific T wave abnormality Abnormal ECG When compared with ECG of 04-MAY-2020 13:55, Current undetermined rhythm precludes rhythm comparison, needs review Nonspecific T wave abnormality now evident in Inferior leads Nonspecific T wave abnormality now evident in Anterolateral leads Code Status & VTE Plan Code Status Full code VTE Prophylaxis Plan VTE Prophylaxis will be ordered: Yes Supervising Physician Co-Signing Physician Notes Attending addendum: I have physically seen this patient, have supervised the GILDARDO's activities, and agree with the H&P unless as otherwise noted. Assessment and Plan: Atrial fibrillation with RVR/CAD/hypertension/permanent atrial fibrillation- The patient will be admitted to telemetry for serial cardiac enzymes, serial EKG's, cardiac rhythm monitoring and a 2-D echocardiogram with Dopplers. Given Cardizem 20 mg IV by EMS, and then started on Cardizem drip in the emergency department, which has since been discontinued Cardiology advised stopping Cardizem drip Lopressor 5 mg IV given to help improve rate control Give metoprolol to tartrate 50 mg p.o. now Potassium 3.2 and magnesium 1.9 likely contributing to rate control issues Advise Klor-Con 40 mEq p.o. and 2K riders, following mag sulfate 1 g IV Hold triamterene/HCTZ Elevated troponin 116 with follow-up 137, likely secondary to increased heart rate Repeat laboratories after repletion Cardiology consulted Left lower extremity swelling/Elevated D-dimer- Order lower extremity venous Dopplers Empiric treatment with low-dose heparin, a CTA unobtainable at this time due to shellfish allergy Thrombocytopenia- Monitor closely while on heparin PG Care Time/CCT Total # of Minutes Spent Total Time Spent with Patient: Total time spent is greater than 50% in coordination of care (as documented) at patient's floor/unit and/or counseling patient: Coding [place] [address] INT INP/OBS CARE 375MIN Patient Type Established Medical Decision Making High Complexity Diagnoses Atrial fibrillation with rapid ventricular response I48.91 Leukocytosis D72.829 High anion gap metabolic acidosis E87.29 SOB (shortness of breath) R06.02 Elevated troponin R79.89 Elevated CK R74.8 Fall W19.XXXA Acute hypokalemia E87.6 Thrombocytopenia D69.6 CAD (coronary artery disease) I25.10 Failure to thrive in adult R62.7 Impaired fasting glucose R73.01 Elevated bilirubin R17 Swelling of both lower extremities M79.89
[2023-02-23] MEDS ORDERED: HEPARIN SOD (PORCINE) 1000 UNIT/ML IV ONE ×2 (20:30→21:26)
[2023-02-23] MEDS ORDERED: HEPARIN SODIUM/DEXTROSE 25,000 UNITS/500 ML BAG IV SCH (20:30)
[2023-02-23 20:43] LABS: Troponin I High Sensitivity 137.4 pg/ml (0-20)
[2023-02-23 20:49] LABS: Base Excess ABG -2.6 mEq/L (-9-1.8); HCO3 ABG 19 mmol/L (19-24); PCO2 ABG 25 mmHg (35-46); PO2 ABG 85 mmHg (80-95); pH ABG 7.49 (7.35-7.45)
[2023-02-23] MEDS ORDERED: LACTATED RINGER'S 1,000 ML IV ONE (20:52)
[2023-02-23] MEDS ORDERED: levoFLOXacin/D5W 750 MG/150 ML BAG IV STA (20:55)
[2023-02-23] MEDS: POTASSIUM CHLORIDE / WTR 10 MEQ/100 ML PLCT IV SCH ×2 (20:59→22:15)
[2023-02-23] MEDS ORDERED: CARBOHYDRATES FOR HYPOGLYCEMIA PO PRN (21:01)
[2023-02-23] MEDS ORDERED: DEXTROSE 50% 50 ML SYRINGE IV PRN (21:01)
[2023-02-23] MEDS ORDERED: GLUCAGON FOR INJ 1 MG VIAL SQ PRN (21:01)
[2023-02-23] MEDS ORDERED: GLUCOSE 40% GEL 15 GM TUBE PO PRN (21:01)
[2023-02-23] MEDS ORDERED: GLUCOSE 10 TAB/TUBE PO PRN (21:01)
[2023-02-23 21:06] LABS: D Dimer 12250 ug/L FEU (0-500)
[2023-02-23] MEDS ORDERED: Heparin IV Adult Wt-Based Standard w/ INITIAL Bolus Protocol IV STA (21:11)
[2023-02-23 21:34] LABS: Allen Test Pos (Pos)
[2023-02-23] MEDS: HEPARIN SODIUM/DEXTROSE 25,000 UNITS/500 ML BAG IV SCH (21:46)
[2023-02-23 22:13] LABS: Adenovirus PCR Not Detected (NotDetected); Bordetella parapertussis PCR Not Detected (NotDetected); Bordetella pertussis PCR Not Detected (NotDetected); Chlamydia pneumoniae PCR Not Detected (NotDetected); Coronavirus 229E PCR Not Detected (NotDetected); Coronavirus CoV-2 (COVID19)PCR Not Detected (NotDetected); Coronavirus HKU1 PCR Not Detected (NotDetected); Coronavirus NL63 PCR Not Detected (NotDetected); Coronavirus OC43PCR Not Detected (NotDetected); Human Metapneumovirus PCR Not Detected (NotDetected); Influenza A PCR Not Detected (NotDetected); Influenza B PCR Not Detected (NotDetected); Mycoplasma pneumoniae PCR Not Detected (NotDetected); Parainfluenza Virus 1 PCR Not Detected (NotDetected); Parainfluenza Virus 2 PCR Not Detected (NotDetected); Parainfluenza Virus 3 PCR Not Detected (NotDetected); Parainfluenza Virus 4 PCR Not Detected (NotDetected); Respiratory Syncytial VirusPCR Not Detected (NotDetected); Rhinovirus/Enterovirus PCR Not Detected (NotDetected)
[2023-02-23] MEDS ORDERED: METOPROLOL TARTRATE 50 MG TAB PO STA (22:13)
[2023-02-23] MEDS ORDERED: INSULIN ASPART PER UNIT CHARGE SC STA (22:25)
[2023-02-23 22:57] LABS: Appearance Urine Cloudy (Clear); Bacteria Urine Automated Negative (Negative); Blood Urine 3+ (Negative); Color Urine Dark Yellow; Glucose Urine UA Negative (Negative); Ketones Urine Trace (Negative); Leukocyte Esterase Urine Trace (Negative); Nitrite Urine Negative (Negative); Protein Urine 3+ (Negative); Specific Gravity Urine 1.027 (1.000-1.030); Urobilinogen Urine Negative (Negative)
[2023-02-23 22:59] LABS: Bilirubin Urine 1+ (Negative)
[2023-02-23] MEDS: LACTATED RINGER'S 1,000 ML IV SCH (23:04)
[2023-02-24] MEDS: METOPROLOL TARTRATE 1 MG/ML VIAL IV PRN ×4 (00:06→18:12)
[2023-02-24 04:39] LABS: ANTI-Xa, UFH(UnfractionatedHep 0.45 IU/ml (0.3-0.7)
[2023-02-24] MEDS: LACTATED RINGER'S 1,000 ML IV SCH (06:11)
[2023-02-24 06:57] LABS: Estimated Average Glucose 120 mg/dl; Hemoglobin A1C 5.8 % (4.5-5.6)
--- NOTE | 2023-02-24 07:37 | XRay Report ---
KUB CLINICAL HISTORY: Abdominal pain. Constipation. COMPARISON STUDY: KUB May 04, 2020. FINDINGS: Pelvic surgical clips are incidentally noted. The bowel gas pattern is normal. There is a m oderate amount of stool within the rectum. Small amount of stool within the colon is present. IMPRESSION: 1. No evidence for a bowel obstruction. 2. Moderate amount of stool within the rectum. ACT 112: Negative or not required by law. Electronically signed by: Luther Licea M.D. 02/24/2023 7:35 AM
[2023-02-24] MEDS ORDERED: WARFARIN SOD 7.5 MG TAB PO ONE (08:15)
[2023-02-24] MEDS: INSULIN ASPART PER UNIT CHARGE SC SCH ×4 (08:22→19:47)
[2023-02-24] MEDS: METOPROLOL TARTRATE 50 MG TAB PO SCH ×2 (09:09→20:16)
[2023-02-24] MEDS: POTASSIUM CHLORIDE CRTAB 20 MEQ TABCR PO SCH ×2 (09:09→20:16)
[2023-02-24] MEDS: PANTOprazole 40 MG TAB PO SCH (09:09)
--- NOTE | 2023-02-24 09:20 | Ultrasound Report ---
US liver CLINICAL HISTORY: Abdominal pain. COMPARISON STUDY: KUB February 23, 2023. FINDINGS: No hepatic lesions are identified. There is no biliary ductal dilatation. Common bile duct measures 5 mm in caliber. Numerous gallstones within the gallbladder are present. Gallbladder wall th ickness is within normal limits. There is a small amount of pericholecystic fluid. No sonographic Mur phy sign was elicited. Pancreatic body is normal. Head and tail are obscured. There is no right hydro nephrosis. IMPRESSION: 1. Cholelithiasis. Trace pericholecystic fluid. However, no sonographic Herrmann sign. These findings a re not strongly suggestive of acute cholecystitis although a nuclear medicine hepatobiliary scan coul d be obtained if clinical suspicion for cholecystitis. 2. No biliary ductal dilatation. ACT 112: Negative or not required by law. Electronically signed by: Luther Licea M.D. 02/24/2023 9:18 AM
--- NOTE | 2023-02-24 11:32 | XCELERA ---
[id number] \\[id number]
--- NOTE | 2023-02-24 12:00 | Electrocardiogram Report ---
Test Reason : Blood Pressure : / mmHG Vent. Rate : 129 BPM Atrial Rate : 133 BPM P-R Int : 000 ms QRS Dur : 092 ms QT Int : 278 ms P-R-T Axes : 000 013 209 degrees QTc Int : 407 ms Atrial fibrillation with rapid ventricular response Diffuse Minor Nonspecific T wave abnormality Abnormal ECG When compared with ECG of 04-MAY-2020 13:55, No significant change Confirmed by Roamn Flynn ([id number]) on 02/24/2023 12:00:01 PM Referred By: REFERRED SELF Confirmed By:Roman Flynn
[2023-02-24] MEDS: ACETAMINOPHEN 325 MG TAB PO PRN (12:46)
--- NOTE | 2023-02-24 12:54 | Hospitalist Progress Note ---
Date of Service February 24, 2023 Assessment & Plan (1) Atrial fibrillation with rapid ventricular response: Plan: Telemetry. Cardiology consultation and recommendations appreciated. Diltiazem drip has been switched to metoprolol. Chest x-ray negative for any overt CHF. (2) Leukocytosis: Plan: Present on admission. He is on Levaquin until culture results are obtained. Blood cultures negative to date. (3) SOB (shortness of breath): Plan: Probably due to uncontrolled atrial fibrillation. No overt CHF on chest x-ray. Supportive care (4) Elevated troponin: Plan: Appears to be supply/demand mismatch due to tachycardia. No evidence of acute coronary syndrome. (5) Elevated CK: Plan: Likely due to his recent falls. No evidence of acute coronary syndrome. Serial labs (6) Fall: Plan: Supportive care. OT and PT assessments. Fortunately there are no fractures on x-ray. Head CT scan negative (7) Acute hypokalemia: Plan: Oral replacement. Serial labs (8) CAD (coronary artery disease): Plan: Stable. Continue current medical management. (9) Failure to thrive in adult: Plan: Supportive care. OT and PT assessments requested Plan To be determined Admission and Anticipated Discharge Date Admission Date: February 23, 2023 Subjective Alert. No acute distress. Diltiazem drip has been switched to metoprolol by cardiology. He remains in atrial fibrillation with controlled rate. Heparin drip was started on admission. Potassium replacement underway. INR subtherapeutic and Coumadin given today at 7.5 mg. INR will be monitored daily and adjustments made accordingly. Cultures negative to date Review of Systems 2 Review of Systems: Constitutional-no fever or chills ENT-no blurred vision, no double vision, no epistaxis, no sore throat Respiratory-no cough, no wheezing, no shortness of breath Cardiac-no palpitations, no chest pain, no syncope GI-no nausea, vomiting, diarrhea, melena, hematochezia -no urinary retention, no urinary incontinence, no dysuria, no hematuria Musculoskeletal-no joint pain, no muscle tenderness Skin-no bruising, no rashes, no pruritus Neuro-no isolated weakness, no paresthesia, no weakness Psych-no depression, no anxiety Physical Exam 2 Physical Exam: General-alert and oriented x3, no fever, no chills HEENT-head atraumatic and normocephalic, pupils equal and reactive to light, extraocular muscles intact Neck-no lymphadenopathy or thyromegaly, trachea midline Chest-clear to auscultation percussion. No rales, wheezing or rhonchi Cardiac-irregular slightly tachycardic rate. Normal S1 and S2 Abdomen-normal bowel sounds, nontender, no hepatosplenomegaly Extremities-no cyanosis, clubbing, or edema Neuro-cranial nerves II through XII intact, motor and sensory function within normal limits, strength symmetrical, no focal deficits Psych-normal affect, normal mood Results & Data Results & Data Vital Signs (Past 12 Hours) Vital Signs Temp Pulse Pulse Resp BP BP Pulse Ox 02/24/23 12:00 145 H 02/24/23 11:48 36.7 C 150 H 20 121/56 L 96 02/24/23 11:45 172 H 121/56 L 02/24/23 08:12 36.7 C 134 H 19 119/82 93 02/24/23 07:28 125 H 02/24/23 06:48 140 H 02/24/23 06:29 114 H 118/87 02/24/23 05:59 130 H 118/90 02/24/23 05:53 36.5 C 123 H 16 118/90 98 02/24/23 05:15 02/24/23 01:06 125 H O2 Del Method O2 Flow Rate 02/24/23 12:00 02/24/23 11:48 Nasal Cannula 2 02/24/23 11:45 02/24/23 08:12 Room Air 02/24/23 07:28 02/24/23 06:48 02/24/23 06:29 02/24/23 05:59 02/24/23 05:53 Room Air 02/24/23 05:15 Room Air 02/24/23 01:06 Laboratory Results 02/23/23 17:35 02/23/23 17:35 PG Care Time/CCT Total # of Minutes Spent Total Time Spent with Patient: Total time spent is greater than 50% in coordination of care (as documented) at patient's floor/unit and/or counseling patient: Coding Level of Care Code 33017 SUB INP/OBS CARE 3/50MIN Diagnoses Atrial fibrillation with rapid ventricular response I48.91 Leukocytosis D72.829 SOB (shortness of breath) R06.02 Elevated troponin R79.89 Elevated CK R74.8 Fall W19.XXXA Acute hypokalemia E87.6 CAD (coronary artery disease) I25.10 Failure to thrive in adult R62.7
[2023-02-24] MEDS ORDERED: DIGOXIN 500 MCG in SYRINGE 8 ML IV STA (13:04)
[2023-02-24] MEDS: HEPARIN SODIUM/DEXTROSE 25,000 UNITS/500 ML BAG IV SCH (15:19)
--- NOTE | 2023-02-24 16:28 | Cardiology Consultation ---
Date of Consultation February 24, 2023 Assessment & Plan (1) Atrial fibrillation with RVR: (2) Cardiomyopathy: (3) CAD (coronary artery disease): (4) Moderate to severe mitral regurgitation: (5) Moderate pulmonary hypertension: (6) Elevated troponin: Plan 82-year-old man with complex medical history including CAD (occluded/collateralized LAD medically managed) and permanent atrial fibrillation (metoprolol/warfarin) who has had declining functional status and presents with fatigue and rapid ventricular rate. Etiology of tachycardia uncertain, possible pneumonia and/or urinary tract infection. In addition, suspect progressively declining left ventricular systolic function plays a role. 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 Certainly, missing his negative chronotropic medications plays a role, agree with restarting metoprolol and adjusting dose to achieve ventricular rate of 110 bpm or less. Would avoid diltiazem given his reduced ejection fraction. If beta-halley ineffective, could add digoxin. Also, echocardiogram demonstrates progressive and now significant mitral regurgitation. He did not appear volume overloaded initially, but did receive some IV fluids, will need to monitor this closely. INR was subtherapeutic due to missing his warfarin dose, agree with heparin while reinitiating warfarin (I have talked him about a newer anticoagulant agent but he has not been interested in the past). Mild troponin elevation likely demand ischemia given tachycardia and patient with known CAD. No evidence of acute coronary syndrome. Will continue to follow along. Dr. Madrid will be covering cardiology for the weekend. History of Present Illness Reason for Consultation: A-fib with RVR Requesting Physician: Leonidas Marlow MD Attending Physician: Leonidas Marlow MD History of Present Illness 82-year-old man known to me from outpatient encounters (although compliance is an issue, last seen November 2021), history of permanent atrial fibrillation (warfarin/metoprolol), atrial tachycardia induced cardiomyopathy (EF previously mid range to low normal, currently 25-30%), CAD (occluded/collateralized LAD, other vessels nonocclusive at cath 2010), and significant spinal stenosis which severely limits his activity who was admitted with progressive dyspnea and weakness culminating in a fall, brought to ER by EMS and found to have atrial fibrillation with rapid ventricular response (150 bpm). He notes to me that he remains limited by his spinal stenosis, but when he does attempt to walk short distances he becomes markedly dyspneic, this is unchanged for many months or even the past year. He denied any chest pain, palpitations, lightheadedness, presyncope, or syncope. Of note, the patient's pillbox was empty and he apparently had not been taking any of his medications for an unspecified period of time At the time of my evaluation, his main complaint was chronic arthralgias, he had no dyspnea at rest and no chest pain or tachypalpitations. Rhythm rate remained atrial fibrillation with rapid ventricular sponsor (120 bpm). Allergies Allergy/AdvReac Type Severity Reaction Status Date / Time Cephalosporins Allergy Severe ANAPHYLAXIS Verified 10/27/22 10:26 TO PCN diazepam Allergy Unknown UNKNOWN Verified 10/27/22 10:26 Penicillins Allergy Unknown ANAPHYLAXIS Verified 10/27/22 10:26 simvastatin Allergy Unknown MYALGIA Verified 10/27/22 10:26 shellfish derived Allergy Verified 10/27/22 10:26 codeine AdvReac Mild HEADACHE Verified 10/27/22 10:26 shrimp AdvReac Verified 10/27/22 10:26 Home Medications Medication Instructions Recorded Confirmed Type acetaminophen 500 mg tablet 1,000 mg PO Q8H 12/13/19 10/27/22 History (Tylenol Extra Strength) calcium carbonate 600 mg-vitamin 1 tab PO DAILY 12/13/19 10/27/22 History D3 20 mcg (800 unit) tablet (Caltrate with Vitamin D3) linaclotide 145 mcg capsule 145 mcg PO DAILY #30 caps 05/08/20 10/27/22 Rx (Linzess) nitroglycerin 0.4 mg sublingual 0.4 mg sublingual Q5M PRN chest 08/20/20 10/27/22 Rx tablet pain #25 tabs betamethasone dipropionate 0.05 % 1 applic topical DAILY #60 mL 04/30/21 10/27/22 Rx lotion lactulose 10 gram/15 mL oral 20 g (30 mL) PO BID #473 mL 07/23/21 10/27/22 Rx solution (Enulose) triamterene 37.5 1 cap PO WK #15 caps 08/31/21 10/27/22 Rx mg-hydrochlorothiazide 25 mg capsule metoprolol tartrate 100 mg tablet 50 mg (1/2 x 100 mg) PO Q12H #90 11/26/21 10/27/22 Rx tabs warfarin 5 mg tablet 5 mg PO .COMPLEX #60 tabs 11/27/21 10/27/22 Rx gabapentin 300 mg capsule 300 mg PO BID #60 caps 03/31/22 10/27/22 Rx omeprazole 20 mg capsule,delayed 20 mg PO DAILY #30 caps 05/30/22 10/27/22 Rx release Patient History Medical History (Updated 02/24/23 @ 16:26 by Roman Flynn MD) 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 Permanent atrial fibrillation CAD (coronary artery disease) Cardiomyopathy Carotid artery stenosis, asymptomatic Chest wall pain Dyslipidemia History of stroke without residual deficits Hyperglycemia HTN (hypertension) Spinal stenosis Vitamin D deficiency Impaired fasting glucose Peripheral vascular disease Surgical History S/P prostatectomy History of tonsillectomy Family History Uncle Colorectal cancer Father Myocardial infarction Grandfather (Paternal) Myocardial infarction Denies family history of Ovarian cancer Prostate cancer Breast cancer Social History Smoking Status: Never smoker Tobacco Type: Smokeless Tobacco (Dip or Chew) Second Hand Exposure: No; Do You Dip or Chew Tobacco: Yes; Hx Alcohol Use: Yes Hx Substance Use: No Preferred Language: Norwegian Communication Ability: Effective Visual Impairment: Limited Hearing Ability: Normal Language Assistant Required: No Beliefs That Will Affect Care: None marital status: Current Living Situation: Spouse current occupational status: retired How many Children do You have: 3 Other Information That Helps Us Care for You: No Feels Safe at Home: Yes Safety Concerns: Feels Safe At This Time Childhood Exposure to Second-Hand Smoke: Yes Diet: regular caffeine: Yes (COFFEE) during the past year weight has: remained stable Dental Care, Regularly: No Physical Activity Frequency: Does not Exercise Seatbelt Use: always Sunscreen Use: No Do you think of yourself as: straight/heterosexual Gender Identity: Male Assistive Devices: Cane and Walker Physical Exam Physical Exam: Elderly white male appears chronically ill but not acutely distressed. Afebrile. Normotensive. Pulse 120 bpm range and irregular. Skin: No generalized lesions and no no obvious ecchymoses. HEENT: Unremarkable. Nasal and oropharynx benign. Neck: Jugular venous pulse at the clavicle at 90, no carotid bruits. Lungs: Moderately decreased breath sounds, no obvious wheeze or crackles. No accessory muscle use. . Cardiac: Faint heart tones, irregular rhythm with 2/6 apical holosystolic murmur which is nonradiating, no distinct gallop. Abdomen: Benign. Extremities: 2+ left and 1+ right ankle edema, pulses not readily palpable, mildly delayed capillary refill (3-4 seconds). Neurologic: Normal affect and conversation, grossly nonfocal. Results & Data Laboratory Results Troponin values 116, 137, 138, 102. BNP 581 (no baseline). WBC 15.6, hemoglobin 13.1, platelet count 115,000. D-dimer 12,250. ABG 7.49/25/85/98% (room air). Sodium 135, potassium 3.2, BUN 15, creatinine 1.13. Lactate 2.9. CK20 989. Diagnostic Findings ECG showed atrial fibrillation with ventricular rate of 129 bpm, diffuse nonspecific T wave flattening. Compared with April 2020 study, no significant change. Chest x-ray showed cardiomegaly without evidence of CHF. Atelectasis suggested at the bases. Echocardiogram today showed EF 25 to 30% with moderate to severe global hypokinesis, moderate to severe MR, moderate TR, moderate pulmonary hypertension, moderately dilated IVC. Compared with 2010 study, LV systolic function has declined, mitral and tricuspid regurgitation are more severe, and pulmonary hypertension increased. PG Care Time/CCT Total # of Minutes Spent Total Time Spent with Patient: Total time spent is greater than 50% in coordination of care (as documented) at patient's floor/unit and/or counseling patient: Coding Level of Care Code 78919 IN/OBS CONSULT LVL 4,60M Diagnoses Atrial fibrillation with RVR I48.91 Cardiomyopathy I42.9 CAD (coronary artery disease) I25.10 Moderate to severe mitral regurgitation I34.0 Moderate pulmonary hypertension I27.20 Elevated troponin R79.89
[2023-02-24 18:20] LABS: Troponin I High Sensitivity 101.6 pg/ml (0-20)
--- NOTE | 2023-02-24 19:53 | Billing Data ---
Date of Service February 24, 2023 Coding Level of Care Code 26396 INT INP/OBS CARE
[2023-02-24] MEDS ORDERED: levoFLOXacin/D5W 750 MG/150 ML BAG IV SCH (22:00)
[2023-02-25] MEDS ORDERED: hydrOXYzine HCl 25 MG TAB PO STA (00:42)
[2023-02-25 05:08] LABS: Allen Test Pos (Pos); Base Excess ABG -0.4 mEq/L (-9-1.8); HCO3 ABG 21 mmol/L (19-24); Oxygen Saturation ABG > 100.0 % (90-95); PCO2 ABG 24 mmHg (35-46); PO2 ABG 118 mmHg (80-95)
[2023-02-25 05:12] LABS: pH ABG 7.54 (7.35-7.45)
[2023-02-25 05:14] LABS: Basophils # (auto) 0.03 K/uL (0.00-0.20); Basophils % (auto) 0.2 %; Eosinophils # (auto) 0.01 K/uL (0.00-0.50); Eosinophils % (auto) 0.1 %; Hematocrit (blood only) 36.3 % (42.0-52.0); Hemoglobin 12.3 g/dl (14.0-18.0); Immature Granulocytes # (auto) 0.09 K/uL (0.01-0.20); Immature Granulocytes % (auto) 0.7 %; Lymphocytes # (auto) 1.44 K/uL (1.20-3.40); Lymphocytes % (auto) 10.5 %; Mean Corpuscular Hemoglobin 32.2 pg (25.0-34.0); Mean Corpuscular Hgb Conc 33.9 g/dL (32.0-36.0); Mean Platelet Volume 11.1 fL (9.4-12.4); Monocytes # (auto) 1.04 K/uL (0.11-0.59); Monocytes % (auto) 7.6 %; Neutrophils # (auto) 11.09 K/uL (1.40-6.50); Neutrophils % (auto) 80.9 %; Nucleated RBC # (auto) 0.03 K/uL (0.00-0.12); Nucleated RBC % (auto) 0.2 %; Platelet Count 153 K/uL (130-400); RDW Coefficient of Variation 13.7 % (11.5-14.5); RDW Standard Deviation 46.7 fL (36.4-46.3); Red Blood Count 3.82 M/uL (4.70-6.10)
[2023-02-25 05:30] LABS: BUN Creatinine Ratio 21.7 (10-20); Calcium 8.4 mg/dl (8.6-10.3); Creatinine Clr Calc Pharmacy 57.2 ml/min; Est GFR (African American) 75.4 ml/min; Potassium 3.7 mmol/L (3.5-5.1)
[2023-02-25 05:39] LABS: ANTI-Xa, UFH(UnfractionatedHep 0.24 IU/ml (0.3-0.7)
[2023-02-25] MEDS: METOPROLOL TARTRATE 50 MG TAB PO SCH (08:22)
[2023-02-25] MEDS: PANTOprazole 40 MG TAB PO SCH (08:23)
[2023-02-25] MEDS: INSULIN ASPART PER UNIT CHARGE SC SCH ×4 (08:24→21:57)
[2023-02-25] MEDS: POTASSIUM CHLORIDE CRTAB 20 MEQ TABCR PO SCH ×2 (08:25→22:45)
[2023-02-25] MEDS: HEPARIN SODIUM/DEXTROSE 25,000 UNITS/500 ML BAG IV SCH (08:27)
[2023-02-25 08:56] LABS: INR 1.6 (0.9-1.1); Prothrombin Time 17.1 Seconds (9.0-12.0)
[2023-02-25] MEDS: METOPROLOL TARTRATE 1 MG/ML VIAL IV PRN ×2 (09:22→17:30)
[2023-02-25] MEDS ORDERED: DIGOXIN 0.125 MG TAB PO ONE (10:29)
[2023-02-25] MEDS ORDERED: WARFARIN SOD 5 MG TAB PO ONE (10:29)
--- NOTE | 2023-02-25 10:42 | Cardiology Progress Note ---
Date of Service February 25, 2023 Assessment & Plan (1) Atrial fibrillation with RVR: (2) Cardiomyopathy: Plan 1. Atrial fibrillation with rapid heart rate: He has been on metoprolol 50 mg twice a day since yesterday with virtual no change in his heart rate. This is consistent with a high catecholamine state. It is imperative that we try to get his heart rate controlled. That may be difficult but due to a high catecholamine state beta-blockade should be titrated. His blood pressure has been acceptable and I think we should go up on his beta-halley. I am going to give him 75 mg of metoprolol this morning and increase to twice a day, if his heart rate is not better controlled by afternoon we should go up to 100 mg twice a day. With his poor left ventricular function we could cause worsening heart failure but we do not have much choice. I am also going to add digoxin, it looks like he had a dose but it did not help his heart rate. His digoxin level this morning is 0.7, I am going to give him another 0.25 mg dose. He will probably need daily doses but we can order them daily for now. If we cannot get his heart rate control this weekend we could consider TIBURCIO cardioversion. 2. Cardiomyopathy: He has a severe cardiomyopathy which hopefully is at least p artially rate related, if so it may recover quickly although he will have underlying left ventricular dysfunction. Admission and Anticipated Discharge Date Admission Date: February 23, 2023 Subjective Chart reviewed and patient examined. He has no specific cardiac complaints, he does have some respiratory symptoms including a cough and mild shortness of breath. He does not have palpitations and seems unaware of his arrhythmia. Physical Exam Physical Exam: Constitutional: Alert, cooperative and in no distress. He is resting in bed. HEENT: Unremarkable Neck: No jugular venous distention, carotid pulses are irregular but otherwise normal and equal bilaterally without bruits. Pulmonary: Crackles on auscultation bilaterally. Cardiac: Irregular rhythm with no murmur, gallop or rub. Abdomen: Soft, nontender with normal bowel sounds. Extremities: Trace bilateral pretibial edema. Neurologic: No focal findings. Skin: No rash, ecchymoses or petechiae. Results & Data Vital Signs (Past 12 Hours) Vital Signs Temp Pulse Pulse Resp BP BP BP 02/25/23 09:22 145 H 120/72 02/25/23 07:38 02/25/23 05:19 02/25/23 05:18 02/25/23 04:21 36.4 C L 119 H 20 128/88 02/24/23 23:06 36.8 C 117 H 20 121/82 02/24/23 22:58 Pulse Ox Pulse Ox O2 Del Method O2 Del Method O2 Flow Rate O2 Flow Rate 02/25/23 09:22 02/25/23 07:38 Nasal Cannula 2 02/25/23 05:19 97 Nasal Cannula 2 02/25/23 05:18 97 Nasal Cannula 2 02/25/23 04:21 96 Nasal Cannula 2.0 02/24/23 23:06 97 Nasal Cannula 2.0 02/24/23 22:58 Nasal Cannula 2 Laboratory Results Cardiac Enzymes 02/24/23 02/24/23 Range/Units 11:01 16:54 Troponin I High Sens 102.2 H* D 101.6 H* (0-20) pg/ml Coagulation 02/25/23 Range/Units 04:55 PT 17.1 H (9.0-12.0) Seconds CBC 02/25/23 Range/Units 04:55 WBC 13.70 H (4.8-10.8) K/ul RBC 3.82 L (4.70-6.10) M/uL Hgb 12.3 L (14.0-18.0) g/dl Hct 36.3 L (42.0-52.0) % Plt Count 153 (130-400) K/uL Neut # (Auto) 11.09 H (1.40-6.50) K/uL Lymph # (Auto) 1.44 (1.20-3.40) K/uL [place] # (Auto) 1.04 H (0.11-0.59) K/uL Eos # (Auto) 0.01 (0.00-0.50) K/uL Baso # (Auto) 0.03 (0.00-0.20) K/uL Comprehensive Metabolic Panel 02/25/23 Range/Units 04:55 Sodium 133 L (136-145) mmol/L Potassium 3.7 (3.5-5.1) mmol/L Chloride 103 (98-107) mmol/L Carbon Dioxide 21 (21-32) mmol/L BUN 23 (6-23) mg/dl Creatinine 1.06 (0.6-1.4) mg/dl Glucose 98 (70-99(Fasting)) mg/dl Calcium 8.4 L (8.6-10.3) mg/dl Intake and Output 02/24/23 02/25/23 02/25/23 22:59 06:59 14:59 Intake Total 576.333 / 1927.333 713.933 / 1927.333 70.5 / 70.5 Output Total 125 / 226 100 / 226 Balance 451.333 / 1701.333 613.933 / 1701.333 70.5 / 70.5 Intake: IV 376.333 / 1427.333 413.933 / 1427.333 70.5 / 70.5 Heparin Sodium/Dextrose 25,000 226.333 / 709.333 413.933 / 709.333 70.5 / 70.5 units In 500 ml @ 1,500 UNITS/ HR 30 mls/hr IV .[id number] GUCCI Rx #:[id number] levoFLOXacin/D5W 750 mg In 150 150 / 150 ml @ 100 mls/hr IV Q24H [facility] Rx# :[id number] Oral 200 / 500 300 / 500 Output: Urine 125 / 125 Urine Amount (Catheter) 100 / 100 External 100 / 100 Other: Other Intake Source SIPS # Unmeasured Voids 1 1 # Urine Diapers 2 Weight 87.2 kg Weight Measurement Method Built in [facility] Diagnostic Findings Telemetry: Atrial fibrillation with ongoing rapid heart rate, averaging 130-140. Little change since admission. PG Care Time/CCT Total # of Minutes Spent Total Time Spent with Patient: Total time spent is greater than 50% in coordination of care (as documented) at patient's floor/unit and/or counseling patient: Coding Level of Care Code 36268 SUB INP/OBS CARE 3/50MIN Diagnoses Atrial fibrillation with RVR I48.91 Cardiomyopathy I42.9
[2023-02-25] MEDS ORDERED: METOPROLOL TARTRATE 25 MG TAB PO STA (10:59)
[2023-02-25] MEDS ORDERED: DIGOXIN 250 MCG in SYRINGE 9 ML IV ONE (11:30)
[2023-02-25 13:16] LABS: A calco-baum cmplx NotReported Not Detected (NotDetected); Bact fragilis Not Reported Not Detected (NotDetected); Blood Culture Id Panel See PCR Comment (NotDetected); C auris Not Reported Not Detected (NotDetected); Calbicans Not Reported Not Detected (NotDetected); Candida glabrata Not Reported Not Detected (NotDetected); Candida krusei Not Reported Not Detected (NotDetected); Cneoformans/gatti Not Reported Not Detected (NotDetected); Cparapsilosis Not Reported Not Detected (NotDetected); E cloacae compx Not Reported Not Detected (NotDetected); Efaecalis Not Reported Not Detected (NotDetected); Efaecium Not Reported Not Detected (NotDetected); Enterobacterales Not Reported Not Detected (NotDetected); Escherichia coli Not Reported Not Detected (NotDetected); H influenzae Not Reported Not Detected (NotDetected); K aerogenes Not Reported Not Detected (NotDetected); Koxytoca Not Reported Not Detected (NotDetected); Kpneumoniae grp Not Reported Not Detected (NotDetected); Lmonocyt Not Reported Not Detected (NotDetected); N meningitidis Not Reported Not Detected (NotDetected); P aeruginosa Not Reported Not Detected (NotDetected); Proteus spp Not Reported Not Detected (NotDetected); Salmonella spp Not Reported Not Detected (NotDetected); Smarcescens Not Reported Not Detected (NotDetected); Staph lugdunensis Not Reported Not Detected (NotDetected); Staph spp. Not Reported DETECTED (NotDetected); Staphaureus Not Reported Not Detected (NotDetected); Staphepi Not Reported Not Detected (NotDetected); Stenmaltophilia Not Reported Not Detected (NotDetected); Strep agal(GrpB) Not Reported Not Detected (NotDetected); Strep pneum Not Reported Not Detected (NotDetected); Strep pyog (GrpA) Not Reported Not Detected (NotDetected); Strep spp Not Reported Not Detected (NotDetected)
[2023-02-25 13:20] LABS: Staphylococcus spp. DETECTED (NotDetected)
--- NOTE | 2023-02-25 14:43 | Hospitalist Progress Note ---
Date of Service February 25, 2023 Assessment & Plan (1) Atrial fibrillation with rapid ventricular response: Plan: Telemetry. Cardiology consultation and recommendations appreciated. Diltiazem drip has been switched to metoprolol. Digitalization underway chest x-ray negative for any overt CHF. (2) Leukocytosis: Plan: Present on admission. He is on Levaquin until culture results are obtained. Blood cultures growing gram-positive cocci in clusters. This appears to be a contaminant. (3) SOB (shortness of breath): Plan: Probably due to uncontrolled atrial fibrillation. No overt CHF on chest x-ray. Supportive care (4) Elevated troponin: Plan: Appears to be supply/demand mismatch due to tachycardia. No evidence of acute coronary syndrome. (5) Elevated CK: Plan: Likely due to his recent falls. No evidence of acute coronary syndrome. CK is trending downward. Serial labs (6) Fall: Plan: Supportive care. OT and PT assessments. Fortunately there are no fractures on x-ray. Head CT scan negative (7) Acute hypokalemia: Plan: Oral replacement. Serial labs (8) CAD (coronary artery disease): Plan: Stable. Continue current medical management. (9) Failure to thrive in adult: Plan: Supportive care. OT and PT assessments requested Plan To be determined Admission and Anticipated Discharge Date Admission Date: February 23, 2023 Subjective Alert. No distress. Cardiology consultation and recommendations appreciated. Metoprolol dosage adjusted and he is being digitalized. Cardiac echo reveals global hypokinesis with ejection fraction 25%. Severe left atrial enlargement and moderate right atrial enlargement. Moderately severe mitral regurgitation noted. 1 blood culture positive for gram-positive cocci which hopefully is just a contaminant. He remains on Levaquin. INR has increased to 1.6. Continue Coumadin and daily INR. Review of Systems 2 Review of Systems: Constitutional-no fever or chills ENT-no blurred vision, no double vision, no epistaxis, no sore throat Respiratory-no cough, no wheezing, no shortness of breath Cardiac-no palpitations, no chest pain, no syncope GI-no nausea, vomiting, diarrhea, melena, hematochezia -no urinary retention, no urinary incontinence, no dysuria, no hematuria Musculoskeletal-no joint pain, no muscle tenderness Skin-no bruising, no rashes, no pruritus Neuro-no isolated weakness, no paresthesia, no weakness Psych-no depression, no anxiety Physical Exam 2 Physical Exam: General-alert and oriented x3, no fever, no chills HEENT-head atraumatic and normocephalic, pupils equal and reactive to light, extraocular muscles intact Neck-no lymphadenopathy or thyromegaly, trachea midline Chest-clear to auscultation percussion. No rales, wheezing or rhonchi Cardiac-irregular slightly tachycardic rate. Normal S1 and S2 Abdomen-normal bowel sounds, nontender, no hepatosplenomegaly Extremities-no cyanosis, clubbing, or edema Neuro-cranial nerves II through XII intact, motor and sensory function within normal limits, strength symmetrical, no focal deficits Psych-normal affect, normal mood Results & Data Results & Data Vital Signs (Past 12 Hours) Vital Signs Temp Pulse Pulse Resp BP BP Pulse Ox 02/25/23 12:22 36.6 C 128 H 22 148/83 H 95 02/25/23 11:34 140 H 02/25/23 11:33 125 H 02/25/23 09:22 145 H 120/72 02/25/23 07:38 02/25/23 05:19 02/25/23 05:18 02/25/23 04:21 36.4 C L 119 H 20 128/88 96 Pulse Ox O2 Del Method O2 Del Method O2 Flow Rate O2 Flow Rate 02/25/23 12:22 Room Air 02/25/23 11:34 02/25/23 11:33 02/25/23 09:22 02/25/23 07:38 Nasal Cannula 2 02/25/23 05:19 97 Nasal Cannula 2 02/25/23 05:18 97 Nasal Cannula 2 02/25/23 04:21 Nasal Cannula 2.0 Laboratory Results 02/25/23 04:55 02/25/23 04:55 PG Care Time/CCT Total # of Minutes Spent Total Time Spent with Patient: Total time spent is greater than 50% in coordination of care (as documented) at patient's floor/unit and/or counseling patient: Coding Level of Care Code 50152 SUB INP/OBS CARE 3/50MIN Diagnoses Atrial fibrillation with rapid ventricular response I48.91 Leukocytosis D72.829 SOB (shortness of breath) R06.02 Elevated troponin R79.89 Elevated CK R74.8 Fall W19.XXXA Acute hypokalemia E87.6 CAD (coronary artery disease) I25.10 Failure to thrive in adult R62.7
[2023-02-25] MEDS: METOPROLOL TARTRATE 25 MG TAB PO SCH (18:00)
[2023-02-25] MEDS: ACETAMINOPHEN 325 MG TAB PO PRN (22:49)
[2023-02-26] MEDS: HEPARIN SODIUM/DEXTROSE 25,000 UNITS/500 ML BAG IV SCH ×2 (02:33→07:49)
[2023-02-26 06:53] LABS: BUN Creatinine Ratio 21.1 (10-20); Calcium 8.3 mg/dl (8.6-10.3); Creatinine Clr Calc Pharmacy 63.9 ml/min; Est GFR (African American) 86.1 ml/min; Est GFR (Non-African American) 74.2 ml/min; Potassium 3.7 mmol/L (3.5-5.1)
[2023-02-26 07:02] LABS: Basophils # (auto) 0.03 K/uL (0.00-0.20); Basophils % (auto) 0.2 %; Eosinophils # (auto) 0.02 K/uL (0.00-0.50); Eosinophils % (auto) 0.2 %; Hematocrit (blood only) 38.5 % (42.0-52.0); Hemoglobin 13.1 g/dl (14.0-18.0); Immature Granulocytes % (auto) 0.8 %; Lymphocytes # (auto) 1.17 K/uL (1.20-3.40); Lymphocytes % (auto) 9.2 %; Mean Corpuscular Hemoglobin 31.9 pg (25.0-34.0); Mean Corpuscular Volume 93.7 fL (80.0-100.0); Mean Platelet Volume 11.2 fL (9.4-12.4); Monocytes # (auto) 1.18 K/uL (0.11-0.59); Monocytes % (auto) 9.3 %; Neutrophils # (auto) 10.18 K/uL (1.40-6.50); Neutrophils % (auto) 80.3 %; Nucleated RBC # (auto) 0.05 K/uL (0.00-0.12); Nucleated RBC % (auto) 0.4 %; Platelet Count 172 K/uL (130-400); RDW Coefficient of Variation 13.7 % (11.5-14.5); RDW Standard Deviation 46.1 fL (36.4-46.3); Red Blood Count 4.11 M/uL (4.70-6.10); White Blood Count 12.68 K/ul (4.8-10.8)
[2023-02-26 07:06] LABS: INR 2.7 (0.9-1.1); Prothrombin Time 27.8 Seconds (9.0-12.0)
[2023-02-26 07:27] LABS: ANTI-Xa, UFH(UnfractionatedHep 0.27 IU/ml (0.3-0.7)
[2023-02-26] MEDS: INSULIN ASPART PER UNIT CHARGE SC SCH ×4 (07:50→22:00)
[2023-02-26] MEDS: PANTOprazole 40 MG TAB PO SCH (09:36)
[2023-02-26] MEDS: METOPROLOL TARTRATE 25 MG TAB PO SCH (09:36)
[2023-02-26] MEDS: POTASSIUM CHLORIDE CRTAB 20 MEQ TABCR PO SCH ×2 (09:37→21:02)
--- NOTE | 2023-02-26 10:11 | XRay Report ---
SINGLE VIEW CHEST CLINICAL HISTORY: Hypoxia. FINDINGS: 3 AP, portable, upright chest radiographs are compared to study dated 02/23/2023. The examin ation is degraded by portable technique comment apical lordotic positioning, and patient rotation. T he heart is enlarged noting atherosclerotic calcification of the thoracic aorta. There is pulmonary v ascular congestion. There are bilateral airspace opacities, greatest at the right lung base. No large pleural effusion or pneumothorax is seen. The skeletal structures are osteopenic. The bony thorax is grossly intact. IMPRESSION: 1. Cardiomegaly with evidence of congestive failure. 2. There are bilateral airspace opacities, greatest at the right lung base. This could represent deve loping pulmonary edema and/or an infectious/inflammatory pneumonitis. Clinical correlation will be re quired and radiographic follow-up to resolution is recommended. ACT 112: Negative or not required by law. Electronically signed by: Severo Cervantes M.D. 02/26/2023 10:10 AM
--- NOTE | 2023-02-26 10:44 | Cardiology Progress Note ---
Date of Service February 26, 2023 Assessment & Plan (1) Atrial fibrillation with RVR: (2) Cardiomyopathy: Plan 1. Atrial fibrillation with rapid heart rate: His heart rate is better today on increase metoprolol and extra digoxin. His level is 0.9 today which is quite good. Perhaps we can maintain this at 0.125 mg daily. I am going to increase his metoprolol to 100 mg twice a day, if he tolerates this we will need to convert him to metoprolol succinate 200 mg daily but I would prefer the short acting for now in case we overshoot. 2. Cardiomyopathy: He has a severe cardiomyopathy which hopefully is at least partially rate related, if so it may recover quickly although he will have underlying left ventricular dysfunction. He is tolerating relatively high doses of metoprolol at this time. Admission and Anticipated Discharge Date Admission Date: February 23, 2023 Subjective He has no cardiovascular complaints today. He denies symptoms of palpitations and does not have shortness of breath but is complaining of a "tickle in his throat" with a cough. Physical Exam Physical Exam: Constitutional: Alert, cooperative and in no distress. He is resting in bed. HEENT: Unremarkable Neck: No jugular venous distention, carotid pulses are irregular but otherwise normal and equal bilaterally without bruits. Pulmonary: Crackles on auscultation bilaterally. Cardiac: Irregular rhythm with no murmur, gallop or rub. Abdomen: Soft, nontender with normal bowel sounds. Extremities: Trace bilateral pretibial edema. Neurologic: No focal findings. Skin: No rash, ecchymoses or petechiae. Results & Data Vital Signs (Past 12 Hours) Vital Signs Temp Pulse Resp BP BP Pulse Ox Pulse Ox 02/26/23 07:35 36.7 C 92 H 20 112/71 94 02/26/23 05:00 95 02/25/23 23:15 02/25/23 23:02 36.5 C 106 H 20 139/81 97 O2 Del Method O2 Del Method O2 Flow Rate O2 Flow Rate 02/26/23 07:35 Nasal Cannula 2.0 02/26/23 05:00 Nasal Cannula 2 02/25/23 23:15 Nasal Cannula 2 02/25/23 23:02 Nasal Cannula 2.0 Laboratory Results Coagulation 02/26/23 Range/Units 06:18 PT 27.8 H (9.0-12.0) Seconds CBC 02/26/23 Range/Units 06:18 WBC 12.68 H (4.8-10.8) K/ul RBC 4.11 L (4.70-6.10) M/uL Hgb 13.1 L (14.0-18.0) g/dl Hct 38.5 L (42.0-52.0) % Plt Count 172 (130-400) K/uL Neut # (Auto) 10.18 H (1.40-6.50) K/uL Lymph # (Auto) 1.17 L (1.20-3.40) K/uL [place] # (Auto) 1.18 H (0.11-0.59) K/uL Eos # (Auto) 0.02 (0.00-0.50) K/uL Baso # (Auto) 0.03 (0.00-0.20) K/uL Comprehensive Metabolic Panel 02/26/23 Range/Units 06:18 Sodium 133 L (136-145) mmol/L Potassium 3.7 (3.5-5.1) mmol/L Chloride 102 (98-107) mmol/L Carbon Dioxide 24 (21-32) mmol/L BUN 20 (6-23) mg/dl Creatinine 0.95 (0.6-1.4) mg/dl Glucose 100 H (70-99(Fasting)) mg/dl Calcium 8.3 L (8.6-10.3) mg/dl Intake and Output 02/25/23 02/26/23 02/26/23 22:59 06:59 14:59 Intake Total 322.5 / 1110.5 177.5 / 1110.5 220.2 / 220.2 Output Total 1150 / 1501 Balance 322.5 / -390.5 -972.5 / -390.5 220.2 / 220.2 Intake: IV 322.5 / 570.5 177.5 / 570.5 220.2 / 220.2 Heparin Sodium/Dextrose 25,000 322.5 / 570.5 177.5 / 570.5 220.2 / 220.2 units In 500 ml @ 1,500 UNITS/ HR 30 mls/hr IV .[id number] [facility] Rx #:[id number] Output: Urine Amount (Catheter) 1150 / 1500 External 1150 / 1500 Other: Other Intake Source SIPS # Urine Diapers 1 Weight 89.1 kg Weight Measurement Method Built in [facility] Diagnostic Findings Telemetry: Atrial fibrillation, rate better controlled now averaging around 100 bpm but this is at rest. PG Care Time/CCT Total # of Minutes Spent Total Time Spent with Patient: Total time spent is greater than 50% in coordination of care (as documented) at patient's floor/unit and/or counseling patient: Coding Level of Care Code 02844 SUB INP/OBS CARE 2/35MIN Diagnoses Atrial fibrillation with RVR I48.91 Cardiomyopathy I42.9
[2023-02-26] MEDS ORDERED: METOPROLOL TARTRATE 25 MG TAB PO STA (10:47)
--- NOTE | 2023-02-26 12:23 | Hospitalist Progress Note ---
Date of Service February 26, 2023 Assessment & Plan (1) Acute on chronic systolic CHF (congestive heart failure): Plan: Parenteral Lasix diuresis. Monitor intake and output. Serial chest x-ray (2) Acute respiratory failure with hypoxia: Plan: Supplemental oxygen per nasal cannula to maintain saturation greater than 90%. Wean off as tolerated. Two-step oxygen study was completed today, February 26 (3) Atrial fibrillation with rapid ventricular response: Plan: Telemetry. Cardiology consultation and recommendations appreciated. Diltiazem drip has been switched to metoprolol. Digoxin level 0.9. Atrial fibrillation rate is now controlled. (4) Leukocytosis: Plan: Present on admission. Blood culture appears to be contaminant. Levaquin has been discontinued. (5) Elevated troponin: Plan: Appears to be supply/demand mismatch due to tachycardia. No evidence of acute coronary syndrome. (6) Elevated CK: Plan: Likely due to his recent falls. No evidence of acute coronary syndrome. CK is trending downward. Serial labs (7) Fall: Plan: Supportive care. OT and PT assessments. Fortunately there are no fractures on x-ray. Head CT scan negative (8) Acute hypokalemia: Plan: Oral replacement. Serial labs (9) CAD (coronary artery disease): Plan: Stable. Continue current medical management. (10) Failure to thrive in adult: Plan: Supportive care. OT and PT assessments requested Plan Probable discharge to [facility] this coming week. Hopefully within the next day or 2. Admission and Anticipated Discharge Date Admission Date: February 23, 2023 Subjective Alert and oriented. Unfortunately, the chest x-ray done today, February 26, reviewed reveals evidence of CHF. Parenteral Lasix has been ordered and started. He has known ejection fraction is 25% so this represents acute on chronic systolic CHF. INR is now 2.7. Heparin drip has been discontinued. Will continue Coumadin 3 mg daily and monitor INR daily and adjust Coumadin accordingly. Two-step oxygen saturations study was accomplished and he requires 2 L with ambulation going forward. He will remain on continuous 2 L of oxygen while hospitalized here. Positive blood culture revealing gram-positive cocci in clusters probably represents a contaminant. Atrial fibrillation rate is now controlled with metoprolol and digoxin. Potassium stable at 3.7. Review of Systems 2 Review of Systems: Constitutional-no fever or chills ENT-no blurred vision, no double vision, no epistaxis, no sore throat Respiratory-no cough, no wheezing, no shortness of breath Cardiac-no palpitations, no chest pain, no syncope GI-no nausea, vomiting, diarrhea, melena, hematochezia -no urinary retention, no urinary incontinence, no dysuria, no hematuria Musculoskeletal-no joint pain, no muscle tenderness Skin-no bruising, no rashes, no pruritus Neuro-no isolated weakness, no paresthesia, no weakness Psych-no depression, no anxiety Physical Exam 2 Physical Exam: General-alert and oriented x3, no fever, no chills HEENT-head atraumatic and normocephalic, pupils equal and reactive to light, extraocular muscles intact Neck-no lymphadenopathy or thyromegaly, trachea midline Chest-bibasilar inspiratory rales. No wheezing or rhonchi Cardiac-irregular rhythm. Normal rate. Normal S1 and S2 Abdomen-normal bowel sounds, nontender, no hepatosplenomegaly Extremities-no cyanosis, clubbing, or edema Neuro-cranial nerves II through XII intact, motor and sensory function within normal limits, strength symmetrical, no focal deficits Psych-normal affect, normal mood Results & Data Results & Data Vital Signs (Past 12 Hours) Vital Signs Temp Pulse Pulse Pulse Pulse Resp Resp 02/26/23 12:02 36.8 C 116 H 22 02/26/23 11:44 110 H 109 H 89 20 02/26/23 07:35 36.7 C 92 H 20 02/26/23 05:00 Resp Resp BP Pulse Ox Pulse Ox Pulse Ox Pulse Ox 02/26/23 12:02 126/76 94 02/26/23 11:44 20 17 94 87 L 02/26/23 07:35 112/71 94 02/26/23 05:00 95 Pulse Ox O2 Del Method O2 Del Method O2 Flow Rate O2 Flow Rate O2 Flow Rate 02/26/23 12:02 Nasal Cannula 2.0 02/26/23 11:44 91 2 02/26/23 07:35 Nasal Cannula 2.0 02/26/23 05:00 Nasal Cannula 2 Laboratory Results 02/26/23 06:18 02/26/23 06:18 PG Care Time/CCT Total # of Minutes Spent Total Time Spent with Patient: Total time spent is greater than 50% in coordination of care (as documented) at patient's floor/unit and/or counseling patient: Coding Level of Care Code 80616 SUB INP/OBS CARE 350MIN Diagnoses Acute on chronic systolic CHF (congestive heart failure) I50.23 Acute respiratory failure with hypoxia J96.01 Atrial fibrillation with rapid ventricular response I48.91 Leukocytosis D72.829 Elevated troponin R79.89 Elevated CK R74.8 Fall W19.XXXA Acute hypokalemia E87.6 CAD (coronary artery disease) I25.10 Failure to thrive in adult R62.7
[2023-02-26] MEDS: FUROSEMIDE 40 MG/4 ML VIAL IV SCH (12:48)
[2023-02-26 15:02] LABS: ANTI-Xa, UFH(UnfractionatedHep < 0.10 IU/ml (0.3-0.7)
[2023-02-26] MEDS ORDERED: WARFARIN SOD 3 MG TAB PO SCH (16:00)
[2023-02-26] MEDS ORDERED: DIGOXIN 0.125 MG/2.5 ML UDP PO SCH (16:00)
[2023-02-26] MEDS: METOPROLOL TARTRATE 100 MG TAB PO SCH (20:59)
[2023-02-27] MEDS: FUROSEMIDE 40 MG/4 ML VIAL IV SCH ×2 (01:02→12:07)
[2023-02-27 06:39] LABS: Basophils # (auto) 0.03 K/uL (0.00-0.20); Basophils % (auto) 0.2 %; Hematocrit (blood only) 42.9 % (42.0-52.0); Hemoglobin 14.3 g/dl (14.0-18.0); Immature Granulocytes # (auto) 0.11 K/uL (0.01-0.20); Immature Granulocytes % (auto) 0.8 %; Lymphocytes # (auto) 0.74 K/uL (1.20-3.40); Lymphocytes % (auto) 5.6 %; Mean Corpuscular Hgb Conc 33.3 g/dL (32.0-36.0); Mean Platelet Volume 11.1 fL (9.4-12.4); Monocytes # (auto) 1.38 K/uL (0.11-0.59); Monocytes % (auto) 10.4 %; Neutrophils # (auto) 11.03 K/uL (1.40-6.50); Nucleated RBC # (auto) 0.05 K/uL (0.00-0.12); Nucleated RBC % (auto) 0.4 %; Platelet Count 199 K/uL (130-400); RDW Coefficient of Variation 13.9 % (11.5-14.5); RDW Standard Deviation 47.9 fL (36.4-46.3); Red Blood Count 4.47 M/uL (4.70-6.10); White Blood Count 13.29 K/ul (4.8-10.8)
[2023-02-27 06:57] LABS: BUN Creatinine Ratio 17.4 (10-20); Calcium 8.5 mg/dl (8.6-10.3); Creatinine Clr Calc Pharmacy 70.5 ml/min; Est GFR (African American) 93.6 ml/min; Est GFR (Non-African American) 80.8 ml/min; Potassium 3.8 mmol/L (3.5-5.1)
[2023-02-27 07:16] LABS: INR 3.4 (0.9-1.1); Prothrombin Time 34.5 Seconds (9.0-12.0)
[2023-02-27] MEDS: METOPROLOL TARTRATE 100 MG TAB PO SCH (07:21)
[2023-02-27] MEDS: POTASSIUM CHLORIDE CRTAB 20 MEQ TABCR PO SCH (08:50)
[2023-02-27] MEDS: PANTOprazole 40 MG TAB PO SCH (08:51)
[2023-02-27] MEDS: INSULIN ASPART PER UNIT CHARGE SC SCH ×2 (08:51→11:23)
[2023-02-27] MEDS ORDERED: CEFDINIR 300 MG CAP PO SCH (11:45)
--- NOTE | 2023-02-27 11:52 | Discharge Summary ---
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 On arrival EMS found the patient to be in afib RVR with HR in the 180's but otherwise stable. EMS gave the patient 20 mg Cardizem in route. On arrival to the ED the patient was noted to be in afib RVR with HR in the 150's but otherwise stable. Labs were significant for a leukocytosis of 15 with neutrophil predominance of 13, platelets of 115, lymphocyte count of 0.61, INR of 1.2, potassium of 3.2, AG of 17 with Bicarb of 17, total bili of 1.6, initial high sen trop of 116, BNP of 581 (no previous to compare). CT of the brain/head was negative for acute findings. Chest xray was read as "1. Cardiomegaly without radiographic evidence of congestive failure. 2. Dependent airspace opacities are seen bilaterally, left greater than right. This likely represents atelectasis. Correlate clinically for evidence of a superimposed pneumonitis.". The patient was initially placed on a diltiazem drip in the ED without adequate response, they spoke with cardiology who recommended trying IV lopressor. He was given one dose of 5 mg IV lopressor in the ED with improvement in HR to the 110's. Prior to admission the patient was also given 40 meq PO KCL, 10 meq IV KCL, and 1gm IV mag sulfate per hospital medicine recommendations. At the time of the exam the patient was sitting in bed in no acute distress, he appears disheveled. He states that he has not been taking care of himself as he lives with his and "we both have health issues". He states that he has likely not been taking his medications as prescribed. He does note that he took one dose of SL nitroglycerine last week for chest pain. When asked, he states that he has been experiencing increased WOB for the past "few weeks". He denies recent cough and wheezing. He denies any chest pain over the past week. When asked about falls he states that "I went to my hands and knees earlier today". When asked why he states "I had to pick something up". He thinks he hit his head off a stool. He has lower abdominal pain which he states is chronic from constipation. He has been having increased urinary frequency and the feeling of incomplete bladder emptying but denies dysuria, hematuria, melena, and recent bloody BM's. In regards to his LLE swelling he states that this is chronic. We discussed code status, he wishes to be a full code. After obtaining the patient's permission I called and spoke to his Son (Alcides Nitish [phone]) and his Son's (Josephine Nitish /[phone]) to obtain further information. They explain that they are concerned for the poor living conditions of the patient and his . Alcides and his help to get groceries for the patient and his and help to obtain their prescriptions, Josephine is an RN. They state that they arrived to the patient's home today and found him on the ground, in significant respiratory distress. Josephine called EMS at that time. She states that the patient has been falling frequently and is unable to care for himself or his . She states that she checked the patient's pill pox and noticed that he has been out of Warfarin and Metoprolol, she also believes he is out of his antihypertensive/diuretic. When asked about the left LE swelling she states that he has a history of swelling in that leg but that it is much more swollen than baseline. She also notes that the patient has lost "alot" of weight over the past year as he is not eating consistently or taking care of himself. Principal Diagnosis afib, CHF Discharge Exam The patient is awake, alert and oriented 3, well developed and well nourished, normocephalic and atraumatic, lying in bed and in no acute distress. HEENT--PERRL, EOMI, mucous membranes and oropharynx mildly dry Neck--supple. No JVD. No bruits. Thyroid normal, trachea midline, no adenopathy. Heart--normal S1 and S2. No murmurs, rubs or gallops. Lungs--clear bilaterally, no respiratory distress, no accessory muscle use. Abdomen--normal bowel sounds and soft. Extremities--no cyanosis or clubbing. No edema. Dermatologic--normal skin turgor, normal color, no abnormal lymph nodes, no rash. Neurologic--cranial nerves II through XII grossly intact. Rheumatologic--normal range of motion. Psychiatric--normal affect. Discharge Data Allergies Allergy/AdvReac Type Severity Reaction Status Date / Time Cephalosporins Allergy Severe ANAPHYLAXIS Verified 10/27/22 10:26 TO PCN diazepam Allergy Unknown UNKNOWN Verified 10/27/22 10:26 Penicillins Allergy Unknown ANAPHYLAXIS Verified 10/27/22 10:26 simvastatin Allergy Unknown MYALGIA Verified 10/27/22 10:26 shellfish derived Allergy Verified 10/27/22 10:26 codeine AdvReac Mild HEADACHE Verified 10/27/22 10:26 shrimp AdvReac Verified 10/27/22 10:26 Consultations 02/23/23 19:09 Consult Cardiology Stat 02/23/23 19:10 ED Decision to Admit Stat 02/23/23 19:20 ED Decision to Admit Stat Ordered Studies 02/23/23 17:12 CT head/brain wo con Stat 02/24/23 US liver Stat Hospital Course (1) Acute on chronic systolic CHF (congestive heart failure): Chest x-ray showed evidence of bilateral congestion Has been responding to Lasix Continue p.o. Lasix 40 mg daily Monitor input and output, daily weight. (2) Acute respiratory failure with hypoxia: Supplemental oxygen per nasal cannula to maintain saturation greater than 90%. Wean off as tolerated. Two-step oxygen study was completed February 26 (3) Atrial fibrillation with rapid ventricular response: Telemetry. Cardiology consultation and recommendations appreciated. Diltiazem drip has been switched to metoprolol. Digoxin level 0.9. Atrial fibrillation rate is now controlled. Continue metoprolol 200 mg daily, digoxin 0.125 mg daily (4) Leukocytosis: Present on admission. Blood culture appears to be contaminant. Levaquin has been discontinued. (5) Elevated troponin: Appears to be supply/demand mismatch due to tachycardia. No evidence of acute coronary syndrome. (6) Elevated CK: Likely due to his recent falls. No evidence of acute coronary syndrome. CK is trending downward. Serial labs (7) Fall: Supportive care. OT and PT assessments. Fortunately there are no fractures on x-ray. Head CT scan negative (8) Acute hypokalemia: Oral replacement. Serial labs (9) CAD (coronary artery disease): Stable. Continue current medical management. (10) Failure to thrive in adult: Supportive care. OT and PT assessments requested Plan Probable discharge to [facility] this coming week. Hopefully within the next day or 2. 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 Pending Studies at Discharge: No Stand-Alone Forms: My [facility] Skilled Items Patient informed of condition?: Yes DNR: Yes Discharge Level of Care: Skilled Communicable Disease: No Discharge Prognosis: Improving Lines: None Urinary Catheter: No Medications and DC Order Prescriptions: New digoxin 50 mcg/mL (0.05 mg/mL) Solution 0.125 mg PO DAILY@1600 30 Days Qty: 60 0RF metoprolol succinate 200 mg capsule,sprinkle,ER 24hr 200 mg PO DAILY 30 Days Qty: 30 0RF furosemide [Lasix] 40 mg tablet 40 mg PO DAILY 30 Days Qty: 30 0RF potassium chloride 20 mEq Tablet,Er Particles/Crystals 20 meq PO DAILY 30 Days Qty: 30 0RF Continued Linzess 145 mcg capsule 145 mcg PO DAILY Qty: 30 5RF lactulose [Enulose] 10 gram/15 mL solution 20 g PO BID Qty: 473 3RF Hold Instructions: not working very well. changed to sentremaineot S triamterene-hydrochlorothiazid 37.5-25 mg capsule 1 cap PO WK Qty: 15 3RF warfarin 5 mg tablet 5 mg PO .COMPLEX Qty: 60 5RF Protocol: Dose Management Condition: Monday Dose/Route: 2.5 mg Instruction: 0.5 x 5 mg tablets Condition: Monday Dose/Route: 5 mg Instruction: 1 x 5 mg tablet Condition: Monday Dose/Route: 2.5 mg Instruction: 0.5 x 5 mg tablets Condition: Monday Dose/Route: 5 mg Instruction: 1 x 5 mg tablet Condition: Dose/Route: 2.5 mg Instruction: 0.5 x 5 mg tablets Condition: Monday Dose/Route: 5 mg Instruction: 1 x 5 mg tablet Condition: Monday Dose/Route: 2.5 mg Instruction: 0.5 x 5 mg tablets Protocol Text: Adjustment Start Date: Monday03/30/21 INR Value: 2.8 INR Date: 03/30/21 Recheck Date: 04/29/21 Rx Instructions: Take 1 tablet on Monday and Fridays and then 0.5 tablet on all other days. gabapentin 300 mg capsule 300 mg PO BID Qty: 60 2RF omeprazole 20 mg capsule,delayed release(DR/EC) 20 mg PO DAILY Qty: 30 6RF calcium carbonate-vitamin D3 [Caltrate with Vitamin D3] 600 mg(1,500mg) -800 unit tablet 1 tab PO DAILY acetaminophen [Tylenol Extra Strength] 500 mg tablet 1,000 mg PO Q8H nitroglycerin 0.4 mg tablet, sublingual 0.4 mg sublingual Q5M PRN (Reason: chest pain) Qty: 25 5RF Rx Instructions: do not exceed 3 doses per episode betamethasone dipropionate 0.05 % lotion 1 applic topical DAILY Qty: 60 1RF Rx Instructions: Apply to the scalp as needed for itching or redness. Discontinued metoprolol tartrate 100 mg tablet 50 mg PO Q12H Qty: 90 3RF Discharge Orders: Discharge Order (Routine); Ordered 02/27/23 Ordered By: Ko Tian/Other Patient Handouts: Prediabetes, 5 Steps for Eating Healthier Admission Data Admit Date/Time: 02/23/23 19:29 Attending Provider: Ko Jane Admit Provider: Michel Florence Primary Care Provider: Sole Ibarra Other Providers: Michel Florence; Roman Flynn; [facility] Coding Level of Care Code 72111 INP/OBS DISCH >30 MIN Diagnoses Acute on chronic systolic CHF (congestive heart failure) I50.23 Acute respiratory failure with hypoxia J96.01 Atrial fibrillation with rapid ventricular response I48.91 Leukocytosis D72.829 Elevated troponin R79.89 Elevated CK R74.8 Fall W19.XXXA Acute hypokalemia E87.6 CAD (coronary artery disease) I25.10 Failure to thrive in adult R62.7 Time Spent (min) 35
[2023-02-27] MEDS ORDERED: METOPROLOL TARTRATE 100 MG TAB PO ONE (12:00)
[2023-02-27] MEDS: METOPROLOL TARTRATE 1 MG/ML VIAL IV PRN (12:03)
[2023-02-28] MEDS ORDERED: METOPROLOL SUCC 50MG EXT REL TAB PO SCH (09:00)
== END 2023-02-27 13:46 | DRG 291 ==
LOC: ED 17:05 → SUATTDRO 19:29 → EDINP 19:29 → 2S 22:48

== ENCOUNTER 2023-12-23 08:47 | Inpatient (IN) ==
--- NOTE | 2023-12-23 08:58 | Emergency Department Note ---
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 Per EMS, the patient lives at home and his bed sheets were saturated in blood. Patient reports taking his medications as prescribed including his warfarin. He denies any alcohol use. Patient does chew tobacco and arrives to the emergency department chewing tobacco. On my evaluation the patient is acute on chronically ill-appearing but no distress, afebrile with heart rate in the 130s-160s initially in atrial fibrillation and otherwise stable vital signs. He exhibits mild pallor. Abdomen is nontender. Rectal exam demonstrates gross red blood without palpable hemorrhoids. Atrial fibrillation with RVR, 125 bpm, lateral ST depressions without overt ST elevation. Chest x-ray negative for acute cardiopulmonary process per my preliminary independent interpretation. WBC, platelets within normal limits. H/H is normal at 14.7/43. Chemistry without metabolic acidosis. BUN is not elevated. LFTs unremarkable. TSH within limits. Patient's INR is substantially supratherapeutic > 9.5. CT of the abdomen pelvis was performed and demonstrates intraluminal air linear dependent hyperdense material within the mid to distal rectum is described consistent with active extravasation. Markedly distended rectum containing hyperdense material consistent with clot. A coexistent clot cannot be excluded by CT. Otherwise, large amount of stool within the proximal and moderate amount of stool within the colon is noted. Given the patient's active lower GI bleeding/hemorrhage INR reversal with [facility] is indicated. Case was reviewed with Dr. Bhatti. Appreciate consultation/recommendations and agrees with [facility] for reversal at this time. 10 mg of IV vitamin K ordered. Heart was improved. Blood pressure remained stable. Type and cross performed with 2 units to hold. Case was discussed with KAVEH Mays PAC, with KAVEH Bañuelos hospitalist who will evaluate the patient for admission. Further management per admitting team. Triage Nursing notes reviewed and agree them. Prior/external medical records reviewed Vital Signs: reviewed Differential diagnosis: Diverticulosis, AVM, coagulopathy, colitis, inflammatory bowel disease, malignancy, Mae-Spencer tear, esophagitis, peptic ulcer disease, variceal bleed, gastritis, epistaxis, fissure, hemorrhoids, as well as other pathologies. ER treatment provided: See below. Diagnostics interpreted by me: ECG: Atrial fibrillation with RVR, 125 bpm, no ectopy, lateral ST depressions likely rate related, no overt ST elevation, QTc 435 QRS 74. Cardiac Monitoring: An order for continuous cardiac monitoring was placed and demonstrated Atrial fibrillation with RVR, 125 bpm, no ectopy Laboratory studies: See below Imaging studies: See below Consultation(s): Dr. Bhatti. 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 Per EMS, the patient lives at home and his bed sheets were saturated in blood. Patient reports taking his medications as prescribed including his warfarin. He denies any alcohol use. Patient does chew tobacco and arrives to the emergency department chewing tobacco. ROS: See above HPI for pertinent positives & negatives. A total of 10 systems reviewed and were otherwise negative. VITALS:See Below PHYSICAL EXAMINATION: GENERAL: Awake, alert, acute on chronically ill-appearing, in no distress HENT: Normocephalic, atraumatic. Oropharynx dry mucous membranes. EYES: Normal conjunctiva. Sclera non-icteric. NECK: Supple. No nuchal rigidity. FROM. No JVD. RESPIRATORY: Clear to auscultation. CARDIAC: Tachycardic rate, irregular rhythm. Extremities warm and well perfused. Pulses equal. ABDOMEN: Soft, non-distended. No tenderness to palpation. No rebound or guarding. No masses. RECTAL: Rectal exam demonstrates gross red blood without palpable hemorrhoids. MUSCULOSKELETAL: Chest examination reveals no tenderness. The back is symmetrical on inspection without obvious abnormality. There is no CVA tenderness to palpation. No joint edema. LOWER EXTREMITIES: Calves are equal size bilaterally and non-tender. No edema. No discoloration. NEURO: Normal sensorium. No sensory or motor deficits noted. SKIN: No rash or jaundice noted. ED COURSE: Critical Care: I have personally spent greater than 35 minutes of critical care time in the direct management of this patient. This includes bedside care, interpretation of diagnostic studies, and testing, discussion with consultants, patient, and family members, and other required patient management activities. This 35 minutes is in excess of all separately billable procedures. Elliot Dowling MD Past Med/Surg History Problem List (Updated 12/23/23 @ 19:31 by Elliot Dowling MD) Dehydration Hypotension Rectal bleeding Supratherapeutic INR (Acute) Acute lower gastrointestinal hemorrhage (Acute) Routine health maintenance HFrEF (heart failure with reduced ejection fraction) Encounter for examination following treatment at hospital Acute respiratory failure with hypoxia Acute on chronic systolic CHF (congestive heart failure) Moderate pulmonary hypertension Moderate to severe mitral regurgitation Atrial fibrillation with RVR Elevated CK SOB (shortness of breath) Elevated d-dimer Swelling of both lower extremities Elevated bilirubin Failure to thrive in adult Fall High anion gap metabolic acidosis Leukocytosis High serum lactate Elevated troponin Acute hypokalemia (Acute) Thrombocytopenia (Acute) CHF (congestive heart failure) (Acute) Non-ST elevation CO (NSTEMI) (Acute) Atrial fibrillation with rapid ventricular response (Acute) Excessive cerumen in right ear canal Venous insufficiency Sleep disturbance Change in bowel movement Encounter for pre-operative examination Chest pain Neuropathy Orthostatic hypotension Skin lesion of scalp Constipation Dysequilibrium Scalp 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, infected (Acute) 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 Permanent atrial fibrillation (Acute) CAD (coronary artery disease) Cardiomyopathy Carotid artery stenosis, asymptomatic Chest wall pain Dyslipidemia (Chronic) History of stroke without residual deficits Hyperglycemia (Chronic) HTN (hypertension) (Chronic) Spinal stenosis Vitamin D deficiency (Chronic) Impaired fasting glucose Peripheral vascular disease Surgical History S/P prostatectomy History of tonsillectomy Family History Uncle Colorectal cancer Father Myocardial infarction Grandfather (Paternal) Myocardial infarction Denies family history of Ovarian cancer Prostate cancer Breast cancer Social History Smoking Status: Never smoker Tobacco Type: Smokeless Tobacco (Dip or Chew) Second Hand Exposure: No; Do You Dip or Chew Tobacco: Yes; Tobacco Cessation Education Requested by Patient: No Hx Alcohol Use: No Hx Substance Use: No Preferred Language: Tunisian Communication Ability: Effective Visual Impairment: Limited Hearing Ability: Normal Typists Supervisor Required: No Beliefs That Will Affect Care: None marital status: Current Living Situation: Spouse current occupational status: retired How many Children do You have: 3 Other Information That Helps Us Care for You: No Feels Safe at Home: Yes Safety Concerns: Feels Safe At This Time Childhood Exposure to Second-Hand Smoke: Yes Diet: regular caffeine: Yes (COFFEE) during the past year weight has: remained stable Dental Care, Regularly: No Physical Activity Frequency: Does not Exercise Seatbelt Use: always Sunscreen Use: No Do you think of yourself as: straight/heterosexual Gender Identity: Male Assistive Devices: Cane Allergies Allergies Allergy/AdvReac Type Severity Reaction Status Date / Time Cephalosporins Allergy Severe ANAPHYLAXIS Verified 05/12/23 11:55 TO PCN diazepam Allergy Unknown UNKNOWN Verified 05/12/23 11:55 Penicillins Allergy Unknown ANAPHYLAXIS Verified 05/12/23 11:55 simvastatin Allergy Unknown MYALGIA Verified 05/12/23 11:55 shellfish derived Allergy Verified 05/12/23 11:55 codeine AdvReac Mild HEADACHE Verified 05/12/23 11:55 shrimp AdvReac Verified 05/12/23 11:55 Home Meds Home Medications Medication Instructions Recorded Confirmed acetaminophen 500 mg tablet 1,000 mg PO Q8H 12/13/19 12/23/23 (Tylenol Extra Strength) calcium 600 mg (as 1 tab PO DAILY 12/13/19 12/23/23 carbonate)-vitamin D3 20 mcg (800 unit) tablet (Caltrate with Vitamin D3) lactulose 10 gram/15 mL oral 20 g PO UD 12/23/23 12/23/23 solution (Enulose) linaclotide 145 mcg capsule 145 mcg PO UD 12/23/23 12/23/23 (Linzess) omeprazole 20 mg capsule,delayed 20 mg PO UD 12/23/23 12/23/23 release triamterene 37.5 1 cap PO WK 12/23/23 12/23/23 mg-hydrochlorothiazide 25 mg capsule Previous Rx's Medication Instructions Recorded betamethasone dipropionate 0.05 % 1 applic topical DAILY #60 mL 04/30/21 lotion digoxin 125 mcg (0.125 mg) tablet 125 mcg PO DAILY #90 tabs 05/12/23 furosemide 40 mg tablet 40 mg PO DAILY #90 tabs 05/12/23 warfarin 5 mg tablet 5 mg PO .COMPLEX #60 tabs 05/12/23 nitroglycerin 0.4 mg sublingual 0.4 mg sublingual Q5M PRN chest 05/16/23 tablet pain #25 tabs metoprolol tartrate 100 mg tablet 100 mg PO Q12H #180 tabs 05/23/23 gabapentin 300 mg capsule 300 mg PO BID #60 caps 09/25/23 spironolactone 25 mg tablet 25 mg PO DAILY #90 tabs 10/31/23 Results & Data (ED) Vital Signs Vital Signs - 24 hr 12/23/23 09:06 12/23/23 09:20 12/23/23 09:24 Temperature 36.8 C Temperature Source Oral Pulse Rate 167 H 122 H 139 H Pulse Rate from SpO2 Sensor 100 H Respiratory Rate 18 20 Respiratory Effort / Characteristics Non-Labored Spontaneous Respiratory Depth Normal Respiratory Pattern Regular Blood Pressure 113/88 Blood Pressure Mean 96 Blood Pressure Position Lying Pulse Oximetry 95 98 Oxygen Delivery Method Room Air Sepsis Recent Fever Within 48 Hours No Sepsis New/Unexplained Change in Mental Status N/A Sepsis Action Taken by Nursing No Action Required 12/23/23 09:25 12/23/23 09:33 12/23/23 10:00 Temperature Temperature Source Pulse Rate 124 H 141 H 111 H Pulse Rate from SpO2 Sensor 73 92 H Respiratory Rate 18 19 Respiratory Effort / Characteristics Respiratory Depth Respiratory Pattern Blood Pressure 102/62 Blood Pressure Mean 75 Blood Pressure Position Pulse Oximetry 97 97 97 Oxygen Delivery Method Room Air Sepsis Recent Fever Within 48 Hours Sepsis New/Unexplained Change in Mental Status Sepsis Action Taken by Nursing 12/23/23 10:30 12/23/23 11:00 12/23/23 11:30 Temperature Temperature Source Pulse Rate 158 H 140 H 130 H Pulse Rate from SpO2 Sensor 89 88 Respiratory Rate 16 16 18 Respiratory Effort / Characteristics Respiratory Depth Respiratory Pattern Blood Pressure 98/61 L Blood Pressure Mean 73 Blood Pressure Position Pulse Oximetry 98 99 Oxygen Delivery Method Sepsis Recent Fever Within 48 Hours Sepsis New/Unexplained Change in Mental Status Sepsis Action Taken by Nursing Laboratory Data Attestation: I reviewed the patient's lab results. 12/23/23 16:55 12/23/23 08:52 Lab Results 12/23/23 12/23/23 Range/Units 08:52 09:02 WBC 10.02 (4.8-10.8) K/ul RBC 4.54 L (4.70-6.10) M/uL Hgb 14.7 (14.0-18.0) g/dl POC Hgb 15.0 (14.0-18.0) g/dl Hct 43.0 (42.0-52.0) % POC Hct 44 (42-52) % MCV 94.7 (80.0-100.0) fL MCH 32.4 (25.0-34.0) pg MCHC 34.2 (32.0-36.0) g/dL RDW Std Deviation 42.5 (36.4-46.3) fL RDW Coeff of Jean-Paul 12.3 (11.5-14.5) % Plt Count 292 (130-400) K/uL MPV 10.0 (9.4-12.4) fL Immature Gran % (Auto) 0.5 % Neut % (Auto) 74.1 % Lymph % (Auto) 15.6 % Anson % (Auto) 7.4 % Eos % (Auto) 1.6 % Baso % (Auto) 0.8 % Neut # (Auto) 7.43 H (1.40-6.50) K/uL Lymph # (Auto) 1.56 (1.20-3.40) K/uL Anson # (Auto) 0.74 H (0.11-0.59) K/uL Eos # (Auto) 0.16 (0.00-0.50) K/uL Baso # (Auto) 0.08 (0.00-0.20) K/uL Immature Gran # (Auto) 0.05 (0.01-0.20) K/uL PT > 90.0 H (9.0-12.0) Seconds INR > 9.5 H* (0.9-1.1) POC Sodium 138 (135-144) mmol/L Sodium 136 (136-145) mmol/L POC Potassium 3.3 (3.3-5.0) mmol/L Potassium 3.4 L (3.5-5.1) mmol/L POC Chloride 96 L (101-112) mmol/L Chloride 100 (98-107) mmol/L Carbon Dioxide 28 (21-32) mmol/L POC Total CO2 25 (24-31) mmol/L Anion Gap 8 (3-11) POC Anion Gap 22.0 (16-25) mmol/L POC BUN 13 (7-18) mg/dl BUN 14 (6-23) mg/dl Creatinine 0.90 (0.6-1.4) mg/dl POC Creatinine 0.9 (0.6-1.3) mg/dl Est Cr Clr Drug Dosing 64.6 ml/min eGFR 84.74 BUN/Creatinine Ratio 15.6 (10-20) Glucose 182 H (70-99(Fasting)) mg/dl POC Glucose (other) 184 H (70-99) mg/dl Calcium 9.2 (8.6-10.3) mg/dl POC Ioniz Calcium Tegan 1.19 (1.12-1.32) mmol/l Total Bilirubin 1.0 (0.2-1.0) mg/dl AST 19 (13-39) U/L ALT 19 (7-52) U/L Alkaline Phosphatase 41 (34-104) U/L Total Protein 6.6 (6.0-8.3) gm/dl Albumin 3.6 (3.4-5.0) gm/dl Globulin 3.0 (2.5-4.0) gm/dl Albumin/Globulin Ratio 1.2 (0.9-2) TSH 1.100 (0.300-4.500) uIu/ml Blood Type O Positive Antibody Screen NEGATIVE Administered Medications Lactated Ringer's (Lr) 1,000 mls @ 150 mls/hr IV .Q6H40M [facility] Stop: 12/23/23 20:54 Last Admin: 12/23/23 16:24 Dose: 150 mls/hr Documented By: ABHI Digoxin 250 mcg/ Syringe 10 mls @ 2 mls/min IV DAILY@1600 [facility] Stop: 01/22/24 15:59 Last Admin: 12/23/23 16:25 Dose: 2 mls/min Documented By: ABHI Nicotine (Nicotine 21 Mg/24 Hr Tdsy) 1 patch TD QAM GUCCI Stop: 01/22/24 09:14 Last Admin: 12/23/23 09:31 Dose: 1 patch Documented By: SERGIO Discontinued Medications Phytonadione 10 mg/ Dextrose 51 mls @ 102 mls/hr IV ONE ONE Stop: 12/23/23 10:51 Last Infusion: 12/23/23 11:49 Dose: Infused Documented By: Admin: 12/23/23 11:11 Dose: 102 mls/hr Documented By: SERGIO Prothrombin Complex Concent ( (Human) 4,000 units/ Syringe) 160 mls @ 0 mls/min IV TODAY@1045 ONE; Protocol Stop: 12/23/23 10:46 Last Admin: 12/23/23 10:47 Dose: 10 mls/min Documented By: SERGIO Acetaminophen (Ofirmev) 1,000 mg in 100 mls @ 400 mls/hr IV NOW STA Stop: 12/23/23 10:40 Last Infusion: 12/23/23 12:01 Dose: Infused Documented By: Admin: 12/23/23 11:44 Dose: 400 mls/hr Documented By: SERGIO Lactated Ringer's (Lr) 1,000 mls @ 999 mls/hr IV .Q1H1M ONE Stop: 12/23/23 12:26 Last Infusion: 12/23/23 14:10 Dose: Infused Documented By: Admin: 12/23/23 12:01 Dose: 999 mls/hr Documented By: SERGIO Potassium Chloride (K Diego / Wtr) 10 meq in 100 mls @ 100 mls/hr IV ONE ONE; Protocol Stop: 12/23/23 16:00 Last Infusion: 12/23/23 17:47 Dose: Infused Documented By: Admin: 12/23/23 16:00 Dose: 100 mls/hr Documented By: ABHI Ioversol (Optiray 320 100ml) 93 ml IV ONCE ONE Stop: 12/23/23 09:55 Last Admin: 12/23/23 09:54 Dose: 93 ml Documented By: GRAZYNA Imaging Data Radiologist's Impression: Chest X-Ray 12/23/23 08:52 XR chest 1V portable CLINICAL HISTORY: GI bleed. COMPARISON STUDY: Chest radiograph February 26, 2023. FINDINGS: Lung volumes are normal. Lungs are clear. There is no pneumothorax or pleural effusion. Cardiomegaly is unchanged. Mediastinal contours are normal. There is no evidence for pulmonary edema. IMPRESSION: No acute cardiopulmonary findings. Stable cardiomegaly. ACT 112: Negative or not required by law. Electronically signed by: Luther Licea M.D. 12/23/2023 10:31 AM Abdomen/Pelvis CT 12/23/23 09:07 CT OF THE ABDOMEN AND PELVIS WITH CONTRAST CLINICAL HISTORY: Bright red blood per rectum COMPARISON STUDY: Right upper quadrant ultrasound February 24, 2023. TECHNIQUE: Following IV administration of 90 mL of Optiray, axial images of the abdomen and pelvis were obtained from the lung bases to the proximal femurs. Images were reviewed in the axial, sagittal, and coronal planes. IV contrast was administered without complication. Automated exposure control was utilized for the study. A dose lowering technique was utilized adhering to the principles of ALARA. CT DOSE: 756.23 mGy.cm FINDINGS: Lung bases are unremarkable. No pneumatosis, free air or portal venous gas is present. No regions are identified. There is no biliary or pancreatic ductal dilatation. A 1.7 cm enhancing pancreatic tail lesion on image 70 of 393 has similar enhancement characteristics to the spleen and likely reflects an intrapancreatic splenule. A water attenuation 9 cm left lower pole renal lesion represents a cyst. There is a 6 mm left renal calculus. There are no ureteral calculi. There is no hydronephrosis. The prostate is surgically absent. No abdominal or pelvic lymphadenopathy is identified. There is moderate aortoiliac atherosclerotic plaque. There is a moderate amount of stool is noted within the colon and a large amount stool within the proximal rectum. The rectum is markedly distended. Prominent perirectal vessels are noted. Of note, linear hyperdense material within the dependent aspect of the mid to distal rectum represents active extravasation. Hyperdense material within the rectal lumen represents clot. A coexistent mass cannot be excluded by CT. Colonic diverticulosis. IMPRESSION: 1. Intraluminal linear dependent hyperdense material within the mid to distal rectum consistent with active extravasation. Markedly distended rectum containing hyperdense material consistent with clot. A coexistent mass cannot be excluded by CT. GI consultation is recommended. 2. Large amount of stool within the proximal rectum and moderate amount of stool within the colon. 3. Colonic diverticulosis. No evidence for acute diverticulitis. 4. 6 mm left renal calculus. No ureteral calculi. ACT 112: Negative or not required by law. Electronically signed by: Luther Licea M.D. 12/23/2023 10:25 AM Discharge Plan Visit Data Chief Complaint: Rectal Bleed Stated Complaint: RECTAL BLEED ED Provider: Elliot Dowling Discharge Problem: Acute lower gastrointestinal hemorrhage, Supratherapeutic INR, Permanent atrial fibrillation Patient Disposition: Admitted As Inpatient Discharge Instructions Interventions: ED Discharge Assessment Last Done: 12/23/23 17:49
[2023-12-23 09:15] LABS: iSTAT Creatinine 0.9 mg/dl (0.6-1.3); iSTAT Ionized Calcium 1.19 mmol/l (1.12-1.32); iSTAT Potassium 3.3 mmol/L (3.3-5.0)
[2023-12-23 09:30] LABS: Basophils # (auto) 0.08 K/uL (0.00-0.20); Basophils % (auto) 0.8 %; Eosinophils # (auto) 0.16 K/uL (0.00-0.50); Eosinophils % (auto) 1.6 %; Hemoglobin 14.7 g/dl (14.0-18.0); Immature Granulocytes # (auto) 0.05 K/uL (0.01-0.20); Immature Granulocytes % (auto) 0.5 %; Lymphocytes # (auto) 1.56 K/uL (1.20-3.40); Lymphocytes % (auto) 15.6 %; Mean Corpuscular Hemoglobin 32.4 pg (25.0-34.0); Mean Corpuscular Hgb Conc 34.2 g/dL (32.0-36.0); Mean Corpuscular Volume 94.7 fL (80.0-100.0); Monocytes # (auto) 0.74 K/uL (0.11-0.59); Monocytes % (auto) 7.4 %; Neutrophils # (auto) 7.43 K/uL (1.40-6.50); Neutrophils % (auto) 74.1 %; Platelet Count 292 K/uL (130-400); RDW Coefficient of Variation 12.3 % (11.5-14.5); RDW Standard Deviation 42.5 fL (36.4-46.3); Red Blood Count 4.54 M/uL (4.70-6.10); White Blood Count 10.02 K/ul (4.8-10.8)
[2023-12-23] MEDS: NICOTINE 21 MG/24 HR TDSY TD SCH (09:31)
[2023-12-23 09:41] LABS: Albumin Globulin Ratio 1.2 (0.9-2); Albumin Level 3.6 gm/dl (3.4-5.0); BUN Creatinine Ratio 15.6 (10-20); Calcium 9.2 mg/dl (8.6-10.3); Creatinine Clr Calc Pharmacy 64.6 ml/min; Potassium 3.4 mmol/L (3.5-5.1); Total Protein 6.6 gm/dl (6.0-8.3)
[2023-12-23] MEDS: OPTIRAY 320 100ml IV ONE (09:54)
[2023-12-23 09:55] LABS: Thyroid Stimulating Hormone 1.1 uIu/ml (0.300-4.500)
[2023-12-23 09:59] LABS: Prothrombin Time > 90.0 Seconds (9.0-12.0)
[2023-12-23 10:10] LABS: INR > 9.5 (0.9-1.1)
--- NOTE | 2023-12-23 10:27 | CT Scan Report ---
CT OF THE ABDOMEN AND PELVIS WITH CONTRAST CLINICAL HISTORY: Bright red blood per rectum COMPARISON STUDY: Right upper quadrant ultrasound February 24, 2023. TECHNIQUE: Following IV administration of 90 mL of Optiray, axial images of the abdomen and pelvis we re obtained from the lung bases to the proximal femurs. Images were reviewed in the axial, sagittal, and coronal planes. IV contrast was administered without complication. Automated exposure control wa s utilized for the study. A dose lowering technique was utilized adhering to the principles of ALARA . CT DOSE: 756.23 mGy.cm FINDINGS: Lung bases are unremarkable. No pneumatosis, free air or portal venous gas is present. No r egions are identified. There is no biliary or pancreatic ductal dilatation. A 1.7 cm enhancing pancre atic tail lesion on image 70 of 393 has similar enhancement characteristics to the spleen and likely reflects an intrapancreatic splenule. A water attenuation 9 cm left lower pole renal lesion represent s a cyst. There is a 6 mm left renal calculus. There are no ureteral calculi. There is no hydronephro sis. The prostate is surgically absent. No abdominal or pelvic lymphadenopathy is identified. There i s moderate aortoiliac atherosclerotic plaque. There is a moderate amount of stool is noted within the colon and a large amount stool within the proximal rectum. The rectum is markedly distended. Promine nt perirectal vessels are noted. Of note, linear hyperdense material within the dependent aspect of t he mid to distal rectum represents active extravasation. Hyperdense material within the rectal lumen represents clot. A coexistent mass cannot be excluded by CT. Colonic diverticulosis. IMPRESSION: 1. Intraluminal linear dependent hyperdense material within the mid to distal rectum consistent with active extravasation. Markedly distended rectum containing hyperdense material consistent with clot. A coexistent mass cannot be excluded by CT. GI consultation is recommended. 2. Large amount of stool within the proximal rectum and moderate amount of stool within the colon. 3. Colonic diverticulosis. No evidence for acute diverticulitis. 4. 6 mm left renal calculus. No ureteral calculi. ACT 112: Negative or not required by law. Electronically signed by: Luther Licea M.D. 12/23/2023 10:25 AM
[2023-12-23] MEDS ORDERED: SODIUM CHLORIDE 0.9% 100 ML IV PRN (10:30)
[2023-12-23] MEDS ORDERED: SODIUM CHLORIDE 0.9% 50 ML IV PRN (10:30)
--- NOTE | 2023-12-23 10:32 | XRay Report ---
XR chest 1V portable CLINICAL HISTORY: GI bleed. COMPARISON STUDY: Chest radiograph February 26, 2023. FINDINGS: Lung volumes are normal. Lungs are clear. There is no pneumothorax or pleural effusion. Car diomegaly is unchanged. Mediastinal contours are normal. There is no evidence for pulmonary edema. IMPRESSION: No acute cardiopulmonary findings. Stable cardiomegaly. ACT 112: Negative or not required by law. Electronically signed by: Luther Licea M.D. 12/23/2023 10:31 AM
--- NOTE | 2023-12-23 10:44 | History & Physical Report ---
Date of Service December 23, 2023 Assessment & Plan (1) Rectal bleeding: Plan: Rectal bleed x 2 months with an acute exacerbation on the morning of 12/22 Hgb 14.7 arrival, however supratherapeutic INR at >9.5 Patient is on warfarin for A-fib A/P CT revealed mid to distal rectum with active extravasation; clots; coexistent mass cannot be excluded Kcentra 4000u and Phytodianone 10u given in the ED Trend H&H q4h Type and crossed 2u pRBCs ordered, held; transfuse < 8 given cardiac hx Strict NPO Protonix 40 mg IV twice daily Reviewed case with GI as well as A/P CT and the need for colonoscopy v. IR; Gastroenterology consult appreciated A.m. CBC, BMP, PT/INR, digoxin level (2) Atrial fibrillation with RVR: Plan: Hold warfarin Hold metoprolol for now due to low blood BP Continue digoxin Upon discharge, may need to consider a DOAC (3) Hypotension: Plan: LR 1000mL IV bolus in the ED and will reassess Hold Lasix, spironolactone, triamtereneHCTZ (4) HFrEF (heart failure with reduced ejection fraction): Plan: Echocardiogram with LVEF at 25-30% and severe global hypokinesis of left ventricle Daily weights Strict I&O monitoring (5) Supratherapeutic INR: (6) Acute lower gastrointestinal hemorrhage: (7) Dehydration: Plan Disposition: Admit to PCU telemetry DNR/DNI Strict n.p.o. in the setting of acute lower GI bleed; will plan to eventually transition to clear liquid diet VTE PPx: Hold warfarin in the setting of supratherapeutic INR History of Present Illness Chief Complaint: Rectal bleeding Primary Care Provider: Sole Ibarra MD Lukas is an 83-year-old male with PMH of HFrEF, pulmonary hypertension, atrial fibrillation with RVR (on warfarin), CAD, dyslipidemia, stroke, orthostatic hypotension, and PVD. He presented via EMS on 12/22 after having BRB rectal bleeding x 2+ months. Per EMS, there were bedsheets in the bathtub soaked in blood. Patient reports that he came in today because there was more bleeding than usual, and was getting too concerned. He wears a briefs at baseline, and has fecal incontinence and reports is leaking blood throughout the day. He does say he has stool in his bowel movements that he describes as "thick syrup". He also notes blood clots in his bowel. Patient lives with his . Paloma ent's helps to manage his medications at home. He is unsure if he took his regular morning medicines today. He does believe he last took warfarin yesterday evening for A-fib. No recent change in medications. Per patient, he does not follow with anticoagulant clinic. Patient reports he has been having rectal pain that comes in waves; he rates the pain 8/10 at present. He has been taking Tylenol at home, which does help. While no radiation around the flanks or down the legs, he reports that he does have chronic neuropathy in his legs at baseline. Patient reports his last meal was last night. He is unsure when his last colonoscopy was, and wants to avoid one if possible. Patient reports he is an everyday tobacco chewer, and would like a nicotine patch while inpatient. He denies smoking, tobacco use, recent alcohol use. Patient is tachycardic at 111 bpm at time of admission; vitals otherwise stable. ED course: Phytonadioine 10mg IV PCC 4000 units Nicotine patch ROS: Patient endorses BRB in rectum, "thick syrup" bowel movements x 2 months, melena, diarrhea, fecal incontinence, rectal pain, and headache. Patient denies fever, chest pain, chest palpitations, SOB, cough, pleuritic CP, hemoptysis, abdominal pain, N/V, or saddle anesthesia. Allergies Allergy/AdvReac Type Severity Reaction Status Date / Time Cephalosporins Allergy Severe ANAPHYLAXIS Verified 05/12/23 11:55 TO PCN diazepam Allergy Unknown UNKNOWN Verified 05/12/23 11:55 Penicillins Allergy Unknown ANAPHYLAXIS Verified 05/12/23 11:55 simvastatin Allergy Unknown MYALGIA Verified 05/12/23 11:55 shellfish derived Allergy Verified 05/12/23 11:55 codeine AdvReac Mild HEADACHE Verified 05/12/23 11:55 shrimp AdvReac Verified 05/12/23 11:55 Home Medications Medication Instructions Recorded Confirmed Type acetaminophen 500 mg tablet 1,000 mg PO Q8H 12/13/19 12/23/23 History (Tylenol Extra Strength) calcium 600 mg (as 1 tab PO DAILY 12/13/19 12/23/23 History carbonate)-vitamin D3 20 mcg (800 unit) tablet (Caltrate with Vitamin D3) betamethasone dipropionate 0.05 % 1 applic topical DAILY #60 mL 04/30/21 12/23/23 Rx lotion digoxin 125 mcg (0.125 mg) tablet 125 mcg PO DAILY #90 tabs 05/12/23 12/23/23 Rx furosemide 40 mg tablet 40 mg PO DAILY #90 tabs 05/12/23 12/23/23 Rx warfarin 5 mg tablet 5 mg PO .COMPLEX #60 tabs 05/12/23 12/23/23 Rx nitroglycerin 0.4 mg sublingual 0.4 mg sublingual Q5M PRN chest 05/16/23 12/23/23 Rx tablet pain #25 tabs metoprolol tartrate 100 mg tablet 100 mg PO Q12H #180 tabs 05/23/23 12/23/23 Rx gabapentin 300 mg capsule 300 mg PO BID #60 caps 09/25/23 12/23/23 Rx spironolactone 25 mg tablet 25 mg PO DAILY #90 tabs 10/31/23 12/23/23 Rx lactulose 10 gram/15 mL oral 20 g PO UD 12/23/23 12/23/23 History solution (Enulose) linaclotide 145 mcg capsule 145 mcg PO UD 12/23/23 12/23/23 History (Linzess) omeprazole 20 mg capsule,delayed 20 mg PO UD 12/23/23 12/23/23 History release triamterene 37.5 1 cap PO WK 12/23/23 12/23/23 History mg-hydrochlorothiazide 25 mg capsule Past Med/Surg History Problem List (Updated 12/23/23 @ 11:48 by Dg Courtney PA-C) Dehydration Hypotension Rectal bleeding Supratherapeutic INR (Acute) Acute lower gastrointestinal hemorrhage (Acute) Routine health maintenance HFrEF (heart failure with reduced ejection fraction) Encounter for examination following treatment at hospital Acute respiratory failure with hypoxia Acute on chronic systolic CHF (congestive heart failure) Moderate pulmonary hypertension Moderate to severe mitral regurgitation Atrial fibrillation with RVR Elevated CK SOB (shortness of breath) Elevated d-dimer Swelling of both lower extremities Elevated bilirubin Failure to thrive in adult Fall High anion gap metabolic acidosis Leukocytosis High serum lactate Elevated troponin Acute hypokalemia (Acute) Thrombocytopenia (Acute) CHF (congestive heart failure) (Acute) Non-ST elevation CT (NSTEMI) (Acute) Atrial fibrillation with rapid ventricular response (Acute) Excessive cerumen in right ear canal Venous insufficiency Sleep disturbance Change in bowel movement Encounter for pre-operative examination Chest pain Neuropathy Orthostatic hypotension Skin lesion of scalp Constipation Dysequilibrium Scalp abrasion, infected (Acute) 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 Permanent atrial fibrillation CAD (coronary artery disease) Cardiomyopathy Carotid artery stenosis, asymptomatic Chest wall pain Dyslipidemia (Chronic) History of stroke without residual deficits Hyperglycemia (Chronic) HTN (hypertension) (Chronic) Spinal stenosis Vitamin D deficiency (Chronic) Impaired fasting glucose Peripheral vascular disease Medical History 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 Permanent atrial fibrillation CAD (coronary artery disease) Cardiomyopathy Carotid artery stenosis, asymptomatic Chest wall pain Dyslipidemia History of stroke without residual deficits Hyperglycemia HTN (hypertension) Spinal stenosis Vitamin D deficiency Impaired fasting glucose Peripheral vascular disease Surgical History S/P prostatectomy History of tonsillectomy Family History Uncle Colorectal cancer Father Myocardial infarction Grandfather (Paternal) Myocardial infarction Denies family history of Ovarian cancer Prostate cancer Breast cancer Social History Smoking Status: Never smoker Tobacco Type: Smokeless Tobacco (Dip or Chew) Second Hand Exposure: No; Do You Dip or Chew Tobacco: Yes; Hx Alcohol Use: Yes Hx Substance Use: No Preferred Language: Italian Communication Ability: Effective Visual Impairment: Limited Hearing Ability: Normal Special Systems Technician Required: No Beliefs That Will Affect Care: None marital status: Current Living Situation: Spouse current occupational status: retired How many Children do You have: 3 Feels Safe at Home: Yes Childhood Exposure to Second-Hand Smoke: Yes Diet: regular caffeine: Yes (COFFEE) during the past year weight has: remained stable Dental Care, Regularly: No Physical Activity Frequency: Does not Exercise Seatbelt Use: always Sunscreen Use: No Do you think of yourself as: straight/heterosexual Gender Identity: Male Assistive Devices: Cane and Walker Review of Systems Review of Systems: See HPI above Physical Exam Physical Exam: General: no acute distress; non-toxic appearing; well-nourished; SpO2 97% on RA HEENT: normocephalic, atraumatic; no scleral icterus; PERRLA w/ EOMs intact; vision and hearing grossly intact Neck: supple; no lymphadenopathy; trachea midline Skin: warm, dry without signs of tenting; no cyanosis; no rashes, bruising, lesions, or erythema noted CV: chest wall NTP; irregularly irregular rhythm, tachycardic around 160 bpm; S1/S2 normal; no murmurs/rubs/gallops; pulses intact and symmetric at radial, DP, and PT Lungs: no acute respiratory distress; symmetrical chest wall expansion; clear breath sounds across all lung ortiz w/o adventitious sounds; no wheezing ABD: Soft, NTP; BS present; no rebound/guarding; no distention; no rashes or bruising on the abdomen or flanks bilaterally Rectum: Briefs in place; bright red blood in rectum and in briefs MSK: no tics or fasciculations; no edema noted in the LEs b/l, nonerythematous Neuro: A&Ox3; normal mood and affect; fluent speech; no focal deficits; sensation intact and symmetric in lower extremities bilaterally Results & Data Results & Data Vital Signs (Past 12 Hours) Vital Signs Temp Pulse Resp BP Pulse Ox O2 Del Method 12/23/23 10:00 111 H 19 102/62 97 12/23/23 09:33 141 H 18 97 12/23/23 09:25 124 H 97 Room Air 12/23/23 09:24 139 H 12/23/23 09:20 36.8 C 122 H 20 113/88 98 Room Air 12/23/23 09:06 167 H 18 95 Laboratory Results Abnormal lab results 12/23/23 12/23/23 Range/Units 08:52 09:02 RBC 4.54 L (4.70-6.10) M/uL Neut # (Auto) 7.43 H (1.40-6.50) K/uL [place] # (Auto) 0.74 H (0.11-0.59) K/uL PT > 90.0 H (9.0-12.0) Seconds INR > 9.5 H* (0.9-1.1) Potassium 3.4 L (3.5-5.1) mmol/L POC Chloride 96 L (101-112) mmol/L Glucose 182 H (70-99(Fasting)) mg/dl POC Glucose (other) 184 H (70-99) mg/dl Diagnostic Findings Chest X-Ray 12/23/23 08:52 XR chest 1V portable CLINICAL HISTORY: GI bleed. COMPARISON STUDY: Chest radiograph February 26, 2023. FINDINGS: Lung volumes are normal. Lungs are clear. There is no pneumothorax or pleural effusion. Cardiomegaly is unchanged. Mediastinal contours are normal. There is no evidence for pulmonary edema. IMPRESSION: No acute cardiopulmonary findings. Stable cardiomegaly. ACT 112: Negative or not required by law. Electronically signed by: Luther Licea M.D. 12/23/2023 10:31 AM Abdomen/Pelvis CT 12/23/23 09:07 CT OF THE ABDOMEN AND PELVIS WITH CONTRAST CLINICAL HISTORY: Bright red blood per rectum COMPARISON STUDY: Right upper quadrant ultrasound February 24, 2023. TECHNIQUE: Following IV administration of 90 mL of Optiray, axial images of the abdomen and pelvis were obtained from the lung bases to the proximal femurs. Images were reviewed in the axial, sagittal, and coronal planes. IV contrast was administered without complication. Automated exposure control was utilized for the study. A dose lowering technique was utilized adhering to the principles of ALARA. CT DOSE: 756.23 mGy.cm FINDINGS: Lung bases are unremarkable. No pneumatosis, free air or portal venous gas is present. No regions are identified. There is no biliary or pancreatic ductal dilatation. A 1.7 cm enhancing pancreatic tail lesion on image 70 of 393 has similar enhancement characteristics to the spleen and likely reflects an intrapancreatic splenule. A water attenuation 9 cm left lower pole renal lesion represents a cyst. There is a 6 mm left renal calculus. There are no ureteral calculi. There is no hydronephrosis. The prostate is surgically absent. No abdominal or pelvic lymphadenopathy is identified. There is moderate aortoiliac atherosclerotic plaque. There is a moderate amount of stool is noted within the colon and a large amount stool within the proximal rectum. The rectum is markedly distended. Prominent perirectal vessels are noted. Of note, linear hyperdense material within the dependent aspect of the mid to distal rectum represents active extravasation. Hyperdense material within the rectal lumen represents clot. A coexistent mass cannot be excluded by CT. Colonic diverticulosis. IMPRESSION: 1. Intraluminal linear dependent hyperdense material within the mid to distal rectum consistent with active extravasation. Markedly distended rectum cont aining hyperdense material consistent with clot. A coexistent mass cannot be excluded by CT. GI consultation is recommended. 2. Large amount of stool within the proximal rectum and moderate amount of stool within the colon. 3. Colonic diverticulosis. No evidence for acute diverticulitis. 4. 6 mm left renal calculus. No ureteral calculi. ACT 112: Negative or not required by law. Electronically signed by: Luther Licea M.D. 12/23/2023 10:25 AM ECG Additional Comments: ECG revealed atrial fibrillation with RVR at 125 bpm; QTc 435 Code Status & VTE Plan Code Status DNR/DNI VTE Prophylaxis Plan VTE Prophylaxis will be ordered: Yes Supervising Physician Co-Signing Physician Notes Patient seen and examined, chart reviewed, case discussed with Dg Courtney PA-C and I agree with the assessment and plan as above except as otherwise noted Labs and images reviewed 83-year-old male with past medical history of A-fib on warfarin, CVA without residual deficits, neuropathy, CHF with markedly reduced EF 25% and global hypokinesis who presents to the hospital with GI bleeding, hypotension, light headedness, and rectal pain. His INR is supratherapeutic above limit of detection 9.5. His hemoglobin is 14.7 however he has had increasing large amounts of bright red blood per rectum today, appears volume contracted with dry mucous membranes, tachycardia with movement up to 160, and hypotension 98/61 on initial assessment. Suspect that he will have a significant delusional drop once reconstituted. Case was reviewed with coag clinic and PCC and vitamin K were administered. GI has been consulted. Agree with reversal and monitoring H&H at this time, no indication for transfer at time of admitting assessment. Will admit and trend H&H every 4 hours. 1 L IVF given for volume contraction and hypotension. Strict NPO. 2 units on hold. Hemoglobin transfusion threshold 8.0 due to severe underlying ischemic cardiac disease, or for acute symptoms w/ acute hemorrhage regardless of hgb. +Frequent pulmonary exam reassessment while on fluids due to severely reduced EF; remains volume contr acted on admission. Agree with above. PG Care Time/CCT Total # of Minutes Spent Total Time Spent with Patient: Total time spent is greater than 50% in coordination of care (as documented) at patient's floor/unit and/or counseling patient: [place] [address] INT INP/OBS CARE 3/75MIN Patient Type Established Medical Decision Making High Complexity Diagnoses Rectal bleeding K62.5 Atrial fibrillation with RVR I48.91 Hypotension I95.9 HFrEF (heart failure with reduced ejection fraction) I50.20 Supratherapeutic INR R79.1 Acute lower gastrointestinal hemorrhage K92.2 Dehydration E86.0
[2023-12-23] MEDS: PROTHROMBIN COMP CONC- KCENTRA 4,000 UNITS in SYRINGE 0 ML IV ONE (10:47)
[2023-12-23] MEDS: PHYTONADIONE 10 MG in DEXTROSE 5% 50 ML IV ONE (11:11)
[2023-12-23] MEDS: ACETAMINOPHEN 1,000 MG/100 ML VIAL IV STA (11:44)
[2023-12-23] MEDS: LACTATED RINGER'S 1,000 ML IV ONE (12:01)
[2023-12-23 13:01] LABS: Hematocrit (blood only) 34.6 % (42.0-52.0); Hemoglobin 12.1 g/dl (14.0-18.0)
[2023-12-23] MEDS ORDERED: ONDANSETRON INJ 2 MG/ML 2 ML VIAL IV PRN (13:06)
[2023-12-23] MEDS: POTASSIUM CHLORIDE / WTR 10 MEQ/100 ML PLCT IV ONE (16:00)
[2023-12-23] MEDS: LACTATED RINGER'S 1,000 ML IV SCH (16:24)
[2023-12-23] MEDS: DIGOXIN 250 MCG in SYRINGE 9 ML IV SCH (16:25)
[2023-12-23 17:16] LABS: Hematocrit (blood only) 34.5 % (42.0-52.0); Hemoglobin 11.8 g/dl (14.0-18.0)
[2023-12-23] MEDS: LACTATED RINGER'S 500 ML IV ONE (19:34)
[2023-12-23] MEDS: METOPROLOL TARTRATE 1 MG/ML VIAL IV STA (19:38)
[2023-12-23] MEDS: METOPROLOL TARTRATE 1 MG/ML VIAL IV ONE (20:09)
[2023-12-23] MEDS: METOPROLOL TARTRATE 100 MG TAB PO ONE (20:10)
[2023-12-23] MEDS: PANTOprazole 40 MG/10 ML SYR IV SCH (20:50)
[2023-12-23] MEDS: METOPROLOL TARTRATE 1 MG/ML VIAL IV SCH (20:50)
[2023-12-23] MEDS ORDERED: GABAPENTIN 300 MG CAP PO SCH (21:00)
[2023-12-24 06:14] LABS: Basophils # (auto) 0.05 K/uL (0.00-0.20); Basophils % (auto) 0.5 %; Eosinophils # (auto) 0.17 K/uL (0.00-0.50); Eosinophils % (auto) 1.8 %; Hematocrit (blood only) 35.4 % (42.0-52.0); Hemoglobin 11.9 g/dl (14.0-18.0); Immature Granulocytes # (auto) 0.07 K/uL (0.01-0.20); Immature Granulocytes % (auto) 0.8 %; Lymphocytes % (auto) 19.4 %; Mean Corpuscular Hemoglobin 32.4 pg (25.0-34.0); Mean Corpuscular Hgb Conc 33.6 g/dL (32.0-36.0); Mean Corpuscular Volume 96.5 fL (80.0-100.0); Mean Platelet Volume 10.1 fL (9.4-12.4); Monocytes % (auto) 8.6 %; Neutrophils % (auto) 68.9 %; Platelet Count 257 K/uL (130-400); RDW Coefficient of Variation 12.4 % (11.5-14.5); RDW Standard Deviation 43.7 fL (36.4-46.3); Red Blood Count 3.67 M/uL (4.70-6.10); White Blood Count 9.29 K/ul (4.8-10.8)
[2023-12-24 06:34] LABS: Prothrombin Time 10.5 Seconds (9.0-12.0)
[2023-12-24 06:35] LABS: BUN Creatinine Ratio 18.9 (10-20); Creatinine Clr Calc Pharmacy 77.3 ml/min; Potassium 3.9 mmol/L (3.5-5.1)
--- NOTE | 2023-12-24 08:27 | Gastrointestinal Consultation ---
Date of Consultation December 24, 2023 Assessment & Plan (1) Rectal bleeding: Elderly man admitted with hematochezia. His H/H have remained fairly stable however with the findings on CT scan I do think colonoscopy is warranted especially in light of the fact that he can't remember when he last had a pro cedure and I also guess he will be remaining on warfarin. Will plan colonoscopy for tomorrow History of Present Illness Reason for Consultation: rectal bleeding Attending Physician: Sonido Morales, DO History of Present Illness 83 year old man who doesn't give a great history who was admitted to the hospital with hematochezia. He says it has been going on for "about a week". He does report pain with bowel movements and he reports issues with his bowel movements. He does not remember the last time he had a colonoscopy. CT in the ED showed "suggestion of active bleeding in the rectum". INR on admit was 9.5. He does not think he has passed much blood since he has been in the hospital Allergies Allergy/AdvReac Type Severity Reaction Status Date / Time Cephalosporins Allergy Severe ANAPHYLAXIS Verified 05/12/23 11:55 TO PCN diazepam Allergy Unknown UNKNOWN Verified 05/12/23 11:55 Penicillins Allergy Unknown ANAPHYLAXIS Verified 05/12/23 11:55 simvastatin Allergy Unknown MYALGIA Verified 05/12/23 11:55 shellfish derived Allergy Verified 05/12/23 11:55 codeine AdvReac Mild HEADACHE Verified 05/12/23 11:55 shrimp AdvReac Verified 05/12/23 11:55 Home Medications Medication Instructions Recorded Confirmed Type acetaminophen 500 mg tablet 1,000 mg PO Q8H 12/13/19 12/23/23 History (Tylenol Extra Strength) calcium 600 mg (as 1 tab PO DAILY 12/13/19 12/23/23 History carbonate)-vitamin D3 20 mcg (800 unit) tablet (Caltrate with Vitamin D3) betamethasone dipropionate 0.05 % 1 applic topical DAILY #60 mL 04/30/21 12/23/23 Rx lotion digoxin 125 mcg (0.125 mg) tablet 125 mcg PO DAILY #90 tabs 05/12/23 12/23/23 Rx furosemide 40 mg tablet 40 mg PO DAILY #90 tabs 05/12/23 12/23/23 Rx warfarin 5 mg tablet 5 mg PO .COMPLEX #60 tabs 05/12/23 12/23/23 Rx nitroglycerin 0.4 mg sublingual 0.4 mg sublingual Q5M PRN chest 05/16/23 12/23/23 Rx tablet pain #25 tabs metoprolol tartrate 100 mg tablet 100 mg PO Q12H #180 tabs 05/23/23 12/23/23 Rx gabapentin 300 mg capsule 300 mg PO BID #60 caps 09/25/23 12/23/23 Rx spironolactone 25 mg tablet 25 mg PO DAILY #90 tabs 10/31/23 12/23/23 Rx lactulose 10 gram/15 mL oral 20 g PO UD 12/23/23 12/23/23 History solution (Enulose) linaclotide 145 mcg capsule 145 mcg PO UD 12/23/23 12/23/23 History (Linzess) omeprazole 20 mg capsule,delayed 20 mg PO UD 12/23/23 12/23/23 History release triamterene 37.5 1 cap PO WK 12/23/23 12/23/23 History mg-hydrochlorothiazide 25 mg capsule Patient History Surgical History S/P prostatectomy History of tonsillectomy Family History Uncle Colorectal cancer Father Myocardial infarction Grandfather (Paternal) Myocardial infarction Denies family history of Ovarian cancer Prostate cancer Breast cancer Social History Smoking Status: Never smoker Tobacco Type: Smokeless Tobacco (Dip or Chew) Second Hand Exposure: No; Do You Dip or Chew Tobacco: Yes; Tobacco Cessation Education Requested by Patient: No Hx Alcohol Use: No Hx Substance Use: No Preferred Language: Paraguayan Communication Ability: Effective Visual Impairment: Limited Hearing Ability: Normal Cadastral Surveyor Required: No Beliefs That Will Affect Care: None marital status: Current Living Situation: Spouse current occupational status: retired How many Children do You have: 3 Other Information That Helps Us Care for You: No Feels Safe at Home: Yes Safety Concerns: Feels Safe At This Time Childhood Exposure to Second-Hand Smoke: Yes Diet: regular caffeine: Yes (COFFEE) during the past year weight has: remained stable Dental Care, Regularly: No Physical Activity Frequency: Does not Exercise Seatbelt Use: always Sunscreen Use: No Do you think of yourself as: straight/heterosexual Gender Identity: Male Assistive Devices: Cane Review of Systems Review of Systems: All systems reviewed & are unremarkable except as noted in HPI & below Physical Exam Constitutional: WD/WN, vitals as above Neck: trachea midline, no thyromegaly Respiratory: normal respiratory effort, lungs clear to auscultation Cardiovascular: RRR, no murmur, no edema Heart Sounds: + abnormal S1 Gastrointestinal (Abdomen): normal bowel sounds, soft, nontender, no hepatosplenomegaly Results & Data Vital Signs (Past 12 Hours) Vital Signs Temp Pulse Pulse Resp BP BP Pulse Ox 12/24/23 08:04 36.7 C 106 H 18 117/74 97 12/24/23 07:30 119 H 12/24/23 04:58 100/70 12/24/23 02:54 36.8 C 90 18 123/72 97 12/24/23 00:24 12/24/23 00:24 88 101/66 12/23/23 22:44 36.6 C 71 18 100/65 97 12/23/23 21:52 91 H 93/50 L 12/23/23 21:08 96 H 94/60 L 12/23/23 20:50 132 H 123/70 O2 Del Method 12/24/23 08:04 Room Air 12/24/23 07:30 12/24/23 04:58 12/24/23 02:54 Room Air 12/24/23 00:24 Room Air 12/24/23 00:24 12/23/23 22:44 Room Air 12/23/23 21:52 12/23/23 21:08 12/23/23 20:50 Laboratory Results 12/24/23 12/23/23 12/23/23 Range/Units 05:46 16:55 12:45 WBC 9.29 (4.8-10.8) K/ul RBC 3.67 L (4.70-6.10) M/uL Hgb 11.9 L 11.8 L 12.1 L (14.0-18.0) g/dl POC Hgb (14.0-18.0) g/dl Hct 35.4 L 34.5 L 34.6 L (42.0-52.0) % POC Hct (42-52) % MCV 96.5 (80.0-100.0) fL MCH 32.4 (25.0-34.0) pg MCHC 33.6 (32.0-36.0) g/dL RDW Std Deviation 43.7 (36.4-46.3) fL RDW Coeff of Jean-Paul 12.4 (11.5-14.5) % Plt Count 257 (130-400) K/uL MPV 10.1 (9.4-12.4) fL Immature Gran % (Auto) 0.8 % Neut % (Auto) 68.9 % Lymph % (Auto) 19.4 % Tyler % (Auto) 8.6 % Eos % (Auto) 1.8 % Baso % (Auto) 0.5 % Neut # (Auto) 6.40 (1.40-6.50) K/uL Lymph # (Auto) 1.80 (1.20-3.40) K/uL Tyler # (Auto) 0.80 H (0.11-0.59) K/uL Eos # (Auto) 0.17 (0.00-0.50) K/uL Baso # (Auto) 0.05 (0.00-0.20) K/uL Immature Gran # (Auto) 0.07 (0.01-0.20) K/uL PT 10.5 (9.0-12.0) Seconds INR 1.0 (0.9-1.1) POC Sodium (135-144) mmol/L Sodium 138 (136-145) mmol/L POC Potassium (3.3-5.0) mmol/L Potassium 3.9 (3.5-5.1) mmol/L POC Chloride (101-112) mmol/L Chloride 102 (98-107) mmol/L Carbon Dioxide 29 (21-32) mmol/L POC Total CO2 (24-31) mmol/L Anion Gap 7 (3-11) POC Anion Gap (16-25) mmol/L POC BUN (7-18) mg/dl BUN 14 (6-23) mg/dl Creatinine 0.74 (0.6-1.4) mg/dl POC Creatinine (0.6-1.3) mg/dl Est Cr Clr Drug Dosing 77.3 ml/min eGFR 89.90 BUN/Creatinine Ratio 18.9 (10-20) Glucose 127 H (70-99(Fasting)) mg/dl POC Glucose (other) (70-99) mg/dl Calcium 9.0 (8.6-10.3) mg/dl POC Ioniz Calcium Tegan (1.12-1.32) mmol/l Total Bilirubin (0.2-1.0) mg/dl AST (13-39) U/L ALT (7-52) U/L Alkaline Phosphatase (34-104) U/L Total Protein (6.0-8.3) gm/dl Albumin (3.4-5.0) gm/dl Globulin (2.5-4.0) gm/dl Albumin/Globulin Ratio (0.9-2) TSH (0.300-4.500) uIu/ml Digoxin 0.8 (0.8-2.0) ng/ml Blood Type Antibody Screen 12/23/23 12/23/23 Range/Units 09:02 08:52 WBC 10.02 (4.8-10.8) K/ul RBC 4.54 L (4.70-6.10) M/uL Hgb 14.7 (14.0-18.0) g/dl POC Hgb 15.0 (14.0-18.0) g/dl Hct 43.0 (42.0-52.0) % POC Hct 44 (42-52) % MCV 94.7 (80.0-100.0) fL MCH 32.4 (25.0-34.0) pg MCHC 34.2 (32.0-36.0) g/dL RDW Std Deviation 42.5 (36.4-46.3) fL RDW Coeff of Jean-Paul 12.3 (11.5-14.5) % Plt Count 292 (130-400) K/uL MPV 10.0 (9.4-12.4) fL Immature Gran % (Auto) 0.5 % Neut % (Auto) 74.1 % Lymph % (Auto) 15.6 % Tyler % (Auto) 7.4 % Eos % (Auto) 1.6 % Baso % (Auto) 0.8 % Neut # (Auto) 7.43 H (1.40-6.50) K/uL Lymph # (Auto) 1.56 (1.20-3.40) K/uL Tyler # (Auto) 0.74 H (0.11-0.59) K/uL Eos # (Auto) 0.16 (0.00-0.50) K/uL Baso # (Auto) 0.08 (0.00-0.20) K/uL Immature Gran # (Auto) 0.05 (0.01-0.20) K/uL PT > 90.0 H (9.0-12.0) Seconds INR > 9.5 H* (0.9-1.1) POC Sodium 138 (135-144) mmol/L Sodium 136 (136-145) mmol/L POC Potassium 3.3 (3.3-5.0) mmol/L Potassium 3.4 L (3.5-5.1) mmol/L POC Chloride 96 L (101-112) mmol/L Chloride 100 (98-107) mmol/L Carbon Dioxide 28 (21-32) mmol/L POC Total CO2 25 (24-31) mmol/L Anion Gap 8 (3-11) POC Anion Gap 22.0 (16-25) mmol/L POC BUN 13 (7-18) mg/dl BUN 14 (6-23) mg/dl Creatinine 0.90 (0.6-1.4) mg/dl POC Creatinine 0.9 (0.6-1.3) mg/dl Est Cr Clr Drug Dosing 64.6 ml/min eGFR 84.74 BUN/Creatinine Ratio 15.6 (10-20) Glucose 182 H (70-99(Fasting)) mg/dl POC Glucose (other) 184 H (70-99) mg/dl Calcium 9.2 (8.6-10.3) mg/dl POC Ioniz Calcium Tegan 1.19 (1.12-1.32) mmol/l Total Bilirubin 1.0 (0.2-1.0) mg/dl AST 19 (13-39) U/L ALT 19 (7-52) U/L Alkaline Phosphatase 41 (34-104) U/L Total Protein 6.6 (6.0-8.3) gm/dl Albumin 3.6 (3.4-5.0) gm/dl Globulin 3.0 (2.5-4.0) gm/dl Albumin/Globulin Ratio 1.2 (0.9-2) TSH 1.100 (0.300-4.500) uIu/ml Digoxin (0.8-2.0) ng/ml Blood Type O Positive Antibody Screen NEGATIVE Diagnostic Findings Chest X-Ray 12/23/23 08:52 XR chest 1V portable CLINICAL HISTORY: GI bleed. COMPARISON STUDY: Chest radiograph February 26, 2023. FINDINGS: Lung volumes are normal. Lungs are clear. There is no pneumothorax or pleural effusion. Cardiomegaly is unchanged. Mediastinal contours are normal. There is no evidence for pulmonary edema. IMPRESSION: No acute cardiopulmonary findings. Stable cardiomegaly. ACT 112: Negative or not required by law. Electronically signed by: Luther Licea M.D. 12/23/2023 10:31 AM Abdomen/Pelvis CT 12/23/23 09:07 CT OF THE ABDOMEN AND PELVIS WITH CONTRAST CLINICAL HISTORY: Bright red blood per rectum COMPARISON STUDY: Right upper quadrant ultrasound February 24, 2023. TECHNIQUE: Following IV administration of 90 mL of Optiray, axial images of the abdomen and pelvis were obtained from the lung bases to the proximal femurs. Images were reviewed in the axial, sagittal, and coronal planes. IV contrast was administered without complication. Automated exposure control was utilized for the study. A dose lowering technique was utilized adhering to the principles of ALARA. CT DOSE: 756.23 mGy.cm FINDINGS: Lung bases are unremarkable. No pneumatosis, free air or portal venous gas is present. No regions are identified. There is no biliary or pancreatic d uctal dilatation. A 1.7 cm enhancing pancreatic tail lesion on image 70 of 393 has similar enhancement characteristics to the spleen and likely reflects an intrapancreatic splenule. A water attenuation 9 cm left lower pole renal lesion represents a cyst. There is a 6 mm left renal calculus. There are no ureteral calculi. There is no hydronephrosis. The prostate is surgically absent. No abdominal or pelvic lymphadenopathy is identified. There is moderate aortoiliac atherosclerotic plaque. There is a moderate amount of stool is noted within the colon and a large amount stool within the proximal rectum. The rectum is markedly distended. Prominent perirectal vessels are noted. Of note, linear hyperdense material within the dependent aspect of the mid to distal rectum represents active extravasation. Hyperdense material within the rectal lumen represents clot. A coexistent mass cannot be excluded by CT. Colonic diverticulosis. IMPRESSION: 1. Intraluminal linear dependent hyperdense material within the mid to distal rectum consistent with active extravasation. Markedly distended rectum containing hyperdense material consistent with clot. A coexistent mass cannot be excluded by CT. GI consultation is recommended. 2. Large amount of stool within the proximal rectum and moderate amount of stool within the colon. 3. Colonic diverticulosis. No evidence for acute diverticulitis. 4. 6 mm left renal calculus. No ureteral calculi. ACT 112: Negative or not required by law. Electronically signed by: Luther Licea M.D. 12/23/2023 10:25 AM
[2023-12-24] MEDS ORDERED: METOPROLOL TARTRATE 100 MG TAB PO SCH (09:00)
--- NOTE | 2023-12-24 13:04 | Hospitalist Progress Note ---
Date of Service December 24, 2023 Assessment & Plan (1) Rectal bleeding: Plan: Rectal bleed x 2 months with an acute exacerbation on the morning of 12/22 Hgb 14.7 arrival, however supratherapeutic INR at >9.5 --> INR 1.0 and Hgb 11.9 as of 12/23 Patient is on warfarin for A-fib A/P CT revealed mid to distal rectum with active extravasation; clots; coexistent mass cannot be excluded Kcentra 4000u and Phytodianone 10u given in the ED Trend H&H q4h Type and crossed 2u pRBCs ordered, held; transfuse < 8 given cardiac hx Strict NPO Protonix 40 mg IV twice daily A.m. CBC, BMP, PT/INR, digoxin level --> PT 10.5 and Digoxin 0.8 as of 12/23 Per nursing, rectal bleeding has decreased since being the ED Reviewed case with GI as well as A/P CT and the need for colonoscopy v. IR --> Gastroenterology consult this AM: Elderly man admitted with hematochezia. His H /H have remained fairly stable however with the findings on CT scan I do think colonoscopy is warranted especially in light of the fact that he can't remember when he last had a procedure and I also guess he will be remaining on warfarin. Will plan colonoscopy for tomorrow. (2) Atrial fibrillation with RVR: Plan: Hold warfarin Hold metoprolol for now due to low blood BP Continue digoxin Upon discharge, may need to consider a DOAC Per med tele - continues to have a HR baseline of low 100s-118. Spiked to 180s when he got up to go to the bathroom. Trial 1L of isotonic fluids to see if tachycardia improves (3) Hypotension: Plan: LR 1000mL IV bolus in the ED and will reassess Hold Lasix, spironolactone, triamtereneHCTZ (4) HFrEF (heart failure with reduced ejection fraction): Plan: Echocardiogram with LVEF at 25-30% and severe global hypokinesis of left ventricle Daily weights Strict I&O monitoring (5) Supratherapeutic INR: (6) Acute lower gastrointestinal hemorrhage: (7) Dehydration: Plan Disposition: Admit to PCU telemetry DNR/DNI Strict n.p.o. in the setting of acute lower GI bleed; will plan to eventually transition to clear liquid diet VTE PPx: Hold warfarin in the setting of supratherapeutic INR Admission and Anticipated Discharge Date Admission Date: December 23, 2023 Supervising Physician Co-Signing Physician Notes I personally examined the patient and verified all mcbride points of history and exam, discussed case, and agree with decision making with Dr Reeves and Narayan Carrillo MS3 some ongoing bleeding but thinks it's less than before updated on plans vitals noted fatigued but nad heent nc at mmm breathing unlabored no accessory muscles good effort skin no rashes no pallor or icterus neuro no focal deficits lower GI bleeding, tachycardia - has shown some acute blood loss anemia and tachycardia likely at least in part from hypovolemia - no indications for transfusion at this time but type/screen done; given chronic HFrEF have to be cautious - but with tachycardia likely at least in part from hypovolemia - give 250ml NSS and follow for response, low threshold to give further small isotonic boluses if needed; at the same time, continue current rate control for RVR but would clinically first look at new/worse tachycardia as a reason to assume worsening hypovolemia (and assess at bedside/repeat Hgb/etc) before purely managing as RVR. delicate situation, but appearing stable at the bedside at this time. coumadin reversed - INR has stayed 1.0 for colo likely tomorrow otherwise as above Subjective Patient is a 83 yo M w/ a PMHx of HFrEF, pulmonary hypertension, atrial fibrillation with RVR (on warfarin), CAD, dyslipidemia, stroke, orthostatic hypotension, and PVD. Patient states this morning that he has "always had bowel issues", mostly constipation (states he'll often only go once every 4 days, the days in between each bowel movement vary). Confirms a 2-month Hx of rectal bleeding, states that it is hard to tell if it's been increasing. Patient also states a burning pain in the rectum. Stools (bristol 3/4 stool chart). Patient states that he's not comfortable driving anymore, due to decreased reaction time. No history of GI conditions aside from the constipation. He was prescribed Linzess previously, is not sure if he has taken it due to too many meds to keep track of. Denies lightheadedness or feeling like heart is beating fast. He feels that the rectal bleeding is about the same and had a bit of bleeding when he went to the bathroom. Review of Systems Review of Systems: See HPI above Constitutional: no fever and no chills Respiratory: no cough, no chest congestion and no dyspnea Cardiovascular: no chest pain and no palpitations Gastrointestinal: + constipation, + constant urge to pass stools and + blood in stools; no bloating, no early satiety, no nausea and no vomiting Genitourinary: no dysuria, no urinary frequency or no urinary hesitancy Neurologic: + headache(s); no unsteadiness, no falls and no dizziness Physical Exam Physical Exam: General: no acute distress; non-toxic appearing; well-nourished Cardiovascular: chest wall NTP; irregularly irregular rhythm. S1 and S2 present. No murmurs/rubs/gallops. Continues to be tachycardic. Respiratory: Lungs clear to auscultation bilaterally. No rales, wheezing, or rhonchi GI: Nontender, non-distended. Normoactive bowel sounds. Rectum: A bit of bleeding as patient was in the bathroom trying to have a bowel movement. Brown, dry blood noted on his bed sheet. Skin: No abnormal lesions visualized. Skin warm and dry, Psych: Appropriate mood and affect. Respiratory: normal respiratory effort, lungs clear to auscultation Cardiovascular: RRR, no murmur, no edema Extremities: normal capillary refill; no calf tenderness and no edema Gastrointestinal (Abdomen): Inspection/Auscultation: abdomen normal to inspection Psychiatric: Orientation: alert, oriented x 3, oriented to person, oriented to place and oriented to time (oriented in part to time w/ context clues) Results & Data Results & Data Vital Signs (Past 12 Hours) Vital Signs Temp Pulse Pulse Resp BP BP Pulse Ox 12/24/23 07:30 119 H 12/24/23 04:58 100/70 12/24/23 02:54 36.8 C 90 18 123/72 97 12/24/23 00:24 12/24/23 00:24 88 101/66 12/23/23 22:44 36.6 C 71 18 100/65 97 12/23/23 21:52 91 H 93/50 L 12/23/23 21:08 96 H 94/60 L 12/23/23 20:50 132 H 123/70 12/23/23 20:09 113 H 12/23/23 20:08 113 H 12/23/23 20:01 37 C 93 H 18 116/74 96 O2 Del Method 12/24/23 07:30 12/24/23 04:58 12/24/23 02:54 Room Air 12/24/23 00:24 Room Air 12/24/23 00:24 12/23/23 22:44 Room Air 12/23/23 21:52 12/23/23 21:08 12/23/23 20:50 12/23/23 20:09 12/23/23 20:08 12/23/23 20:01 Room Air
[2023-12-24 15:00] LABS: Prothrombin Time 10.5 Seconds (9.0-12.0)
[2023-12-24] MEDS ORDERED: DIGOXIN 0.125 MG TAB PO SCH (16:00)
--- NOTE | 2023-12-24 16:10 | Billing Data ---
Date of Service December 24, 2023 Coding Level of Care Code 99732 SUB INP/OBS CARE MIN
[2023-12-24] MEDS: SODIUM CHLORIDE 0.9% 250 ML IV ONE (16:32)
[2023-12-24] MEDS: POLYETHYLENE (MIRALAX) 17 GM PACK PO SCH (18:19)
[2023-12-24] MEDS ORDERED: AMIODARONE IV BOLUS & DRIP IV STA (18:20)
[2023-12-24] MEDS ORDERED: STAT IV Infusion **Titration per Protocol STA (18:20)
[2023-12-24] MEDS ORDERED: 0.2 MICRON FILTER SET 1 EACH IV STA (18:20)
--- NOTE | 2023-12-24 18:31 | Communication Note ---
Date of Service: December 24, 2023 called due to tachycardia - pt without symptoms - no chest pain no sob, sitting up in bed not lightheaded. vitals noted nad sitting up on side of bed no distress pulses palpable no pallor or icterus mentally intact/same as earlier - discussing burning in rectum and asking when colo will be done tomorrow. on monitor appears mostly to be afib/RVR with some abberrency, occassional ectopy - does not appear c/w Vtach, and rates ~150-160 afib/RVR - still asymptomatic. gave small fluid challenge earlier no change, and his BP has been stable all day, bleeding appearing to be slowing - with all this, while the clinical conundrum has been determining how much of his HR is compensatory due to hypovolemia and how much is afib/RVR -> his stability fol lowing him all day and lack of sx strongly suggest this is predominantly RVR. that said, with BP being normotensive and he is here primarily with LGI bleeding - would hesitate to go up on beta halley more, simply because it would have more potential to drop BP more; at the same time with his rates persistently fairly high ~150ish and ischemic cardiomyopathy at baseline - now that it's becoming more clear that most (if not all) of his current tachycardia is arrhythmia rather than compensatory to low volume - would prefer to get better rate control - to minimize impact on BP, will utilize amio bolus/gtt at this time (had been not only anticoagulated, but supratherapeutic prior to admission so risk of stroke minimal and benefit of attaining better rate control without risking much real impact on BP outweighs the risk) - continue to follow, if rates not improving w amio then would ask cardiology for assistance. giving more K, checking K and mag now - replete if still low
[2023-12-24] MEDS: AMIODARONE / D5W 150 MG/100 ML BAG IV STA (19:41)
[2023-12-24] MEDS: AMIODARONE / D5W 360 MG/200 ML BAG IV ONE (19:57)
[2023-12-24 19:59] LABS: Calcium 8.8 mg/dl (8.6-10.3); Magnesium 1.7 mg/dl (1.7-2.4); Potassium 3.3 mmol/L (3.5-5.1)
[2023-12-24 20:04] LABS: BUN Creatinine Ratio 18.8 (10-20)
[2023-12-24 20:16] LABS: Troponin I High Sensitivity 12.3 pg/ml (0-20)
[2023-12-24] MEDS: POTASSIUM CHLORIDE CRTAB 20 MEQ TABCR PO STA ×2 (21:33→22:02)
[2023-12-24] MEDS: POTASSIUM CHLORIDE / WTR 10 MEQ/100 ML PLCT IV SCH (21:53)
[2023-12-25] MEDS: MAGNESIUM SULFATE / D5W 1 GM/100 ML BAG IV SCH (00:11)
[2023-12-25] MEDS: AMIODARONE / D5W 360 MG/200 ML BAG IV SCH (01:43)
[2023-12-25] MEDS: hydrOXYzine HCL IM SOLN 50 MG/ML 1 ML VIAL IM STA (02:00)
--- NOTE | 2023-12-25 02:57 | Communication Note ---
Date of Service: December 25, 2023 Patient was started on amiodarone gtt with bolus at start of my shift. Reviewed EKG earlier in my shift. Does appear to be rate controlled at present. I repleted K and Mg with a goal of 4.0 and 2.0 respectively. As patient was rate controlled with BPs on the softer side I did have nursing hold IV metoprolol overnight. Reportedly patient going for a colonoscopy today. Dr. Putnam ordered 119 gm Miralax for 18:00 and 06:00 prior to colonoscopy today. Apparently there was a verbal order from day resident to nursing to hold that PM dose. Nursing is not entirely sure why it was held, but believes it was because there was a lot going on with the initiation of the amiodarone gtt. I was not aware that it was held until nursing brought it up. Had a discussion with nursing regarding plan for the bowel prep. Nursing reported that patient is having brown/dark black smears of stool without much bright red blood. She is concerned that he will not be adequately prepped. The bowel prep was ordered by the specialist team in anticipation of their procedure. As patient is rate controlled and BP is tolerating amiodarone I do think it is acceptable to continue with this plan with close monitoring of his electrolytes and clinical status. Of note patient with significant anxiety overnight regarding his clinical course. Did give a small dose of IM hydroxyzine which helped to alleviate his anxiety and allowed him to sleep. Did pay close attention to tele as amiodarone and hydroxyzine can increased QTC. Patient stable, will sign out to day team and continue to monitor patient's care. Resident Activity Tracking Resident Involvement: Resident Care Provided Care Provided: Adult Hospital Medicine
--- NOTE | 2023-12-25 07:09 | Hospitalist Progress Note ---
Date of Service December 25, 2023 Assessment & Plan (1) Rectal bleeding: (2) Atrial fibrillation with RVR: (3) Hypotension: (4) HFrEF (heart failure with reduced ejection fraction): (5) Supratherapeutic INR: (6) Acute lower gastrointestinal hemorrhage: (7) Dehydration: Plan Pt is an 83 yo male with a past medical history of HFrEF, moderate pulm HTN, afib with RVR on warfarin, CAD, HTN, HLD, and hx of orthostatic hypotension who presents to the hospital on 12/22 for 2 months of on and off GI bleed with acute episode of copious BRBPR. #Rectal bleeding - pt presented with intermittent rectal bleed x2 mo with acute bleed on 12/22 of BRBPR - Hgb on admission 14.7 dropped to 12.1 - INR supratherapeutic INR > 9.5, on warfarin for a fib, improved - A/P CT revealed mid to distal rectum with active extravasation; clots; coexistent mass cannot be excluded - Kcentra 4000u and Phytodianone 10u given in the ED - clears today, plan for colonoscopy tomorrow #Afib with RVR - metoprolol intially held for low BP - on digoxin, also on amiodarone drip for widened ventricular complexes - rate controlled overnight #Agitation - noted on 12/24 to be aggressive and combative with nursing staff - prn zyprexa started #Hypotension - IV bolus given in ED - improved with holding lasix, spironolactone, and triamtrene-HCTZ #HFrEF - Echocardiogram with LVEF at 25-30% and severe global hypokinesis of left ventricle (02/2023) - Daily weights - Strict I&O monitoring VTE PPx: Hold warfarin in the setting of supratherapeutic INR Admission and Anticipated Discharge Date Admission Date: December 23, 2023 Supervising Physician Co-Signing Physician Notes Attending Physician Supervision Note: I independently interviewed and examined the patient and verified the mcbride history and physical, reviewed labs and image studies and agree with findings and care plan noted above. has been agitated off and on. didn't finish prep last night. vitals noted fatigued but nad heent nc at mmm breathing unlabored no accessory muscles good effort skin no rashes no pallor or icterus neuro no focal deficits lower GI bleeding - stable vitals after IV hydration and pRBC. -for re-prep tonight and colo in am. coumadin reversed - INR has stayed 1.0 HFrEF - euvolemic. diuretics on hold. Prn zyprexa added for agitation. continue one on one. otherwise as above Subjective Pt is an 83 yo male with a past medical history of HFrEF, moderate pulm HTN, afib with RVR on warfarin, CAD, HTN, HLD, and hx of orthostatic hypotension who presents to the hospital on 12/22 for 2 months of on and off GI bleed with acute episode of copious BRBPR. Today, he states he is feeling "crappy." He states he just subjectively feels unwell and weak. No pain anywhere at this point in time. Nurse in the room notes he had dark stools overnight. No chest pain or SOB per pt. Review of Systems Review of Systems: Per HPI. Physical Exam Physical Exam: General:Fatigued appearing, Cardio: Irregularly irregular rhythm, + murmur, Resp:Lungs clear to auscultation b/l, GI: Soft and nontender, nondistended, bowel sounds active Skin: Warm, pink, dry, Results & Data Results & Data Vital Signs (Past 12 Hours) Vital Signs Temp Pulse Pulse Pulse Resp BP BP 12/25/23 04:11 66 12/25/23 03:09 36.8 C 91 H 21 128/59 L 12/25/23 00:25 80 107/71 12/25/23 00:11 89 124/78 12/24/23 23:29 101 H 12/24/23 22:56 36.5 C 99 H 18 124/78 12/24/23 21:51 94 H 106/70 12/24/23 20:15 83 118/78 12/24/23 19:55 60 106/67 12/24/23 19:40 37.1 C 89 20 111/69 12/24/23 19:30 Pulse Ox O2 Del Method 12/25/23 04:11 12/25/23 03:09 97 Room Air 12/25/23 00:25 12/25/23 00:11 12/24/23 23:29 12/24/23 22:56 97 Room Air 12/24/23 21:51 12/24/23 20:15 12/24/23 19:55 12/24/23 19:40 96 Room Air 12/24/23 19:30 Room Air Resident Activity Tracking Resident Involvement: Resident Care Provided Care Provided: Adult Hospital Medicine
[2023-12-25 07:46] LABS: Basophils # (auto) 0.05 K/uL (0.00-0.20); Basophils % (auto) 0.6 %; Eosinophils # (auto) 0.22 K/uL (0.00-0.50); Eosinophils % (auto) 2.6 %; Hematocrit (blood only) 31.4 % (42.0-52.0); Hemoglobin 10.7 g/dl (14.0-18.0); Immature Granulocytes # (auto) 0.05 K/uL (0.01-0.20); Immature Granulocytes % (auto) 0.6 %; Lymphocytes # (auto) 1.74 K/uL (1.20-3.40); Lymphocytes % (auto) 20.8 %; Mean Corpuscular Hemoglobin 32.9 pg (25.0-34.0); Mean Corpuscular Hgb Conc 34.1 g/dL (32.0-36.0); Mean Corpuscular Volume 96.6 fL (80.0-100.0); Mean Platelet Volume 9.8 fL (9.4-12.4); Monocytes # (auto) 0.77 K/uL (0.11-0.59); Monocytes % (auto) 9.2 %; Neutrophils # (auto) 5.54 K/uL (1.40-6.50); Neutrophils % (auto) 66.2 %; Platelet Count 223 K/uL (130-400); RDW Coefficient of Variation 12.4 % (11.5-14.5); RDW Standard Deviation 43.8 fL (36.4-46.3); Red Blood Count 3.25 M/uL (4.70-6.10); White Blood Count 8.37 K/ul (4.8-10.8)
[2023-12-25 08:04] LABS: BUN Creatinine Ratio 17.6 (10-20); Calcium 8.5 mg/dl (8.6-10.3); Creatinine Clr Calc Pharmacy 76.1 ml/min; Potassium 3.7 mmol/L (3.5-5.1)
[2023-12-25 08:16] LABS: Prothrombin Time 10.8 Seconds (9.0-12.0)
--- NOTE | 2023-12-25 10:11 | Gastroenterology Progress Note ---
Date of Service December 25, 2023 Assessment & Plan (1) Rectal bleeding: (2) Abnormal CT scan, colon: Plan -Clear liquids today -Keep NPO after midnight with exception of bowel preparation as ordered -Colonoscopy on 12/26/23 -Continue to monitor H/H Admission and Anticipated Discharge Date Admission Date: December 23, 2023 Supervising Physician Co-Signing Physician Notes I saw and examined this patient with our nurse practitioner and agree with her assessment and plan. No significant bleeding at the present time. Denies any abdominal pain. Abdominal exam unremarkable soft and nontender. Hemoglobin stable and hemodynamically stable. Will proceed with colonoscopy tomorrow after bit of bowel prep. Possible site of rectal bleeding identified on CT scan. Continue to monitor hemoglobin and hematocrit. Subjective Patient is an 83 yo male with anemia and abnormal CT rectum. He was to do a bowel preparation last night, but could not complete it. Patient notes suprapubic abdominal discomfort. No other complaints at present. H/H 10.7/31.4. He passed some black and brown stool overnight. INR now down from >9.5 to 1.0. Review of Systems Constitutional: no fever and no chills Gastrointestinal: + melena Psychiatric: no problem reported Physical Exam Constitutional: well developed Respiratory: normal respiratory effort Cardiovascular: Rate/Rhythm: regular rate Gastrointestinal (Abdomen): Inspection/Auscultation: abdomen not distended Percussion/Palpation: + abdomen tender and abdomen soft Results & Data Results & Data Vital Signs (Past 12 Hours) Vital Signs Temp Pulse Pulse Pulse Resp BP BP 12/25/23 07:32 77 126/83 12/25/23 07:22 37 C 82 16 126/83 12/25/23 07:15 81 12/25/23 04:11 66 12/25/23 03:09 36.8 C 91 H 21 128/59 L 12/25/23 00:25 80 107/71 12/25/23 00:11 89 124/78 12/24/23 23:29 101 H 12/24/23 22:56 36.5 C 99 H 18 124/78 Pulse Ox O2 Del Method 12/25/23 07:32 12/25/23 07:22 95 Room Air 12/25/23 07:15 12/25/23 04:11 12/25/23 03:09 97 Room Air 12/25/23 00:25 12/25/23 00:11 12/24/23 23:29 12/24/23 22:56 97 Room Air PG Care Time/CCT Total # of Minutes Spent Total Time Spent with Patient: Total time spent is greater than 50% in coordination of care (as documented) at patient's floor/unit and/or counseling patient: Coding Level of Care Code 09498 SUB INP/OBS CARE 3/50MIN Diagnoses Rectal bleeding K62.[address] scan, colon R93.3
--- NOTE | 2023-12-25 15:15 | Electrocardiogram Report ---
Test Reason : Blood Pressure : */* mmHG Vent. Rate : 125 BPM Atrial Rate : * BPM P-R Int : * ms QRS Dur : 74 ms QT Int : 302 ms P-R-T Axes : * 4 133 degrees QTcB Int : 435 ms Atrial fibrillation with rapid ventricular response with premature ventricular or aberrantly conducte d complexes ST depression, consider subendocardial injury Nonspecific T wave abnormality Abnormal ECG When compared with ECG of 23-Feb-2023 17:23, ST now depressed in Anterolateral leads Confirmed by Jesse Hurtado ([id number]) on 12/25/2023 3:15:10 PM Referred By: REFERRED SELF Confirmed By: Jesse Hurtado
--- NOTE | 2023-12-26 06:48 | Hospitalist Progress Note ---
Date of Service December 26, 2023 Assessment & Plan (1) Rectal bleeding: (2) Atrial fibrillation with RVR: (3) Hypotension: (4) HFrEF (heart failure with reduced ejection fraction): (5) Supratherapeutic INR: (6) Acute lower gastrointestinal hemorrhage: (7) Dehydration: Plan Pt is an 83 yo male with a past medical history of HFrEF, moderate pulm HTN, afib with RVR on warfarin, CAD, HTN, HLD, and hx of orthostatic hypotension who presents to the hospital on 12/22 for 2 months of on and off GI bleed with acute episode of copious BRBPR. #Rectal bleeding - pt presented with intermittent rectal bleed x2 mo with acute bleed on 12/22 of BRBPR - Hgb on admission 14.7 dropped to 12.1 - INR supratherapeutic INR > 9.5, on warfarin for a fib, improved - A/P CT revealed mid to distal rectum with active extravasation; clots; coexistent mass cannot be excluded - Kcentra 4000u and Phytodianone 10u given in the ED - plan for colonoscopy today #Afib with RVR - metoprolol initially held for low BP, continued now - on digoxin, also on amiodarone drip for widened ventricular complexes - rate controlled overnight #Agitation - noted on 12/24 to be aggressive and combative with nursing staff - prn zyprexa started #Hypotension, resolved - IV bolus given in ED - improved with holding lasix, spironolactone, and triamtrene-HCTZ #HFrEF - Echocardiogram with LVEF at 25-30% and severe global hypokinesis of left ventricle (02/2023) - Daily weights - Strict I&O monitoring Will consult PT/OT after colonoscopy. VTE PPx: Hold warfarin in the setting of supratherapeutic INR and GI bleed pending colonoscopy eval Admission and Anticipated Discharge Date Admission Date: December 23, 2023 Supervising Physician Co-Signing Physician Notes Attending Physician Supervision Note: I independently interviewed and examined the patient and verified the mcbride history and physical, reviewed labs and image studies and agree with findings and care plan noted above. alert this am and was going through colon prep. wanted to know when he can leave. vitals noted fatigued but nad heent nc at mmm breathing unlabored no accessory muscles good effort skin no rashes no pallor or icterus neuro no focal deficits lower GI bleeding - stable vitals after IV hydration and pRBC. Protonix drip. -colonoscopy - 2 polyp resected. prep poor. -await further GI recommendations -continue clear liquid diet. A fib - coumadin reversed - INR has stayed 1.0. continue amiodarone drip. dig oxin .25mcg daily, metoprolol 5mgs q4 IV HFrEF - euvolemic. diuretics on hold. Prn zyprexa added for agitation. continue one on one. otherwise as above Subjective Today, pt states he is "feeling fine I guess." He states he has never had a colonoscopy before so he was not sure what the prep would actually be like but at this point he is having to use the bathroom he feels like every 10 minutes. Stools dark brown. Questions when the colonoscopy will be. Otherwise, no questions or complaints at this time. Review of Systems Review of Systems: Per HPI. Physical Exam Physical Exam: General:Alert, sitting on side of bed Cardio: Irregularly irregular rhythm, + murmur, Resp:Lungs clear to auscultation b/l, GI: Soft and nontender, nondistended, bowel sounds hyperactive Skin: Warm, pink, dry, Results & Data Results & Data Vital Signs (Past 12 Hours) Vital Signs Temp Pulse Pulse Pulse Resp BP BP 12/26/23 03:59 68 125/80 12/26/23 03:44 36.8 C 88 20 132/75 12/26/23 03:33 88 132/75 12/26/23 00:08 80 110/71 12/26/23 00:05 36.7 C 80 16 12/25/23 20:57 77 113/74 12/25/23 20:38 77 133/94 12/25/23 20:00 12/25/23 19:31 36.6 C 77 20 133/84 BP Pulse Ox O2 Del Method 12/26/23 03:59 12/26/23 03:44 95 Room Air 12/26/23 03:33 12/26/23 00:08 12/26/23 00:05 110/71 93 Room Air 12/25/23 20:57 12/25/23 20:38 12/25/23 20:00 Room Air 12/25/23 19:31 97 Room Air Resident Activity Tracking Resident Involvement: Resident Care Provided Care Provided: Adult Hospital Medicine
[2023-12-26 07:43] LABS: Basophils # (auto) 0.04 K/uL (0.00-0.20); Basophils % (auto) 0.5 %; Eosinophils # (auto) 0.24 K/uL (0.00-0.50); Eosinophils % (auto) 2.9 %; Hematocrit (blood only) 31.3 % (42.0-52.0); Hemoglobin 10.9 g/dl (14.0-18.0); Immature Granulocytes # (auto) 0.05 K/uL (0.01-0.20); Immature Granulocytes % (auto) 0.6 %; Lymphocytes % (auto) 14.4 %; Mean Corpuscular Hemoglobin 33.3 pg (25.0-34.0); Mean Corpuscular Hgb Conc 34.8 g/dL (32.0-36.0); Mean Corpuscular Volume 95.7 fL (80.0-100.0); Mean Platelet Volume 9.7 fL (9.4-12.4); Monocytes % (auto) 8.4 %; Neutrophils % (auto) 73.2 %; Platelet Count 228 K/uL (130-400); RDW Coefficient of Variation 12.6 % (11.5-14.5); RDW Standard Deviation 43.8 fL (36.4-46.3); Red Blood Count 3.27 M/uL (4.70-6.10); White Blood Count 8.33 K/ul (4.8-10.8)
[2023-12-26 08:01] LABS: Albumin Globulin Ratio 1.4 (0.9-2); Albumin Level 3.3 gm/dl (3.4-5.0); BUN Creatinine Ratio 11.9 (10-20); Bilirubin,Total 0.8 mg/dl (0.2-1.0); Calcium 8.8 mg/dl (8.6-10.3); Creatinine Clr Calc Pharmacy 69.6 ml/min; Globulin 2.3 gm/dl (2.5-4.0); Total Protein 5.6 gm/dl (6.0-8.3)
[2023-12-26 08:06] LABS: Prothrombin Time 11.3 Seconds (9.0-12.0)
--- NOTE | 2023-12-26 10:38 | History & Physical Bridge Note ---
Date of Service December 26, 2023 History & Physical Bridge Note I have examined the patient, reviewed the History & Physical and in the interval since the performance of the History & Physical I have noted the following changes of clinical significance: no changes noted I discussed the patient's care with Pili HUSTON who noted that patient did participate in completing a bowel preparation. He is passing liquid stools at present. She notes that despite reports of mental status & behavioral changes overnight, he has been calm and appropriate this AM. My encounter with patient indicates the same. Keep NPO and proceed with colonoscopy today, barring any unforeseen clinical changes. Supervising Physician Co-Signing Physician Notes I saw and examined this patient with our nurse practitioner and agree with her assessment and plan. Will proceed with colonoscopy.
--- NOTE | 2023-12-26 11:03 | Anesthesiology Consultation ---
Date of Service December 26, 2023 Assessment & Plan Chart Review Chart Review: Acceptable Risk for Surgery Consults Requested none ASA ASA3 Proposed Anesthesia Anesthesia Type: MAC Risk / Benefits Reviewed With: PT / POA / Parent / Guardian, Accepts Plan and Informed Consent Obtained History Surgery Operation Date: 12/25/23 16:45 Proposed Procedures p Colonoscopy Dr. Fransisca Gongora MD Operation Date: 12/26/23 16:30 Proposed Procedures p Colonoscopy Dr. Fransisca Gongora MD Height/Weight Height: 5 ft 11 in Weight: 73.9 kg Allergies Allergy/AdvReac Type Severity Reaction Status Date / Time Cephalosporins Allergy Severe ANAPHYLAXIS Verified 05/12/23 11:55 TO PCN diazepam Allergy Unknown UNKNOWN Verified 05/12/23 11:55 Penicillins Allergy Unknown ANAPHYLAXIS Verified 05/12/23 11:55 simvastatin Allergy Unknown MYALGIA Verified 05/12/23 11:55 shellfish derived Allergy Verified 05/12/23 11:55 codeine AdvReac Mild HEADACHE Verified 05/12/23 11:55 shrimp AdvReac Verified 05/12/23 11:55 Medications Home Medications Medication Instructions Recorded Confirmed Last Taken acetaminophen 500 mg tablet 1,000 mg PO Q8H 12/13/19 12/23/23 Unknown (Tylenol Extra Strength) calcium 600 mg (as 1 tab PO DAILY 12/13/19 12/23/23 Unknown carbonate)-vitamin D3 20 mcg (800 unit) tablet (Caltrate with Vitamin D3) betamethasone dipropionate 0.05 % 1 applic topical DAILY #60 mL 04/30/21 12/23/23 Unknown lotion digoxin 125 mcg (0.125 mg) tablet 125 mcg PO DAILY #90 tabs 05/12/23 12/23/23 Unknown furosemide 40 mg tablet 40 mg PO DAILY #90 tabs 05/12/23 12/23/23 Unknown warfarin 5 mg tablet 5 mg PO .COMPLEX #60 tabs 05/12/23 12/23/23 Unknown nitroglycerin 0.4 mg sublingual 0.4 mg sublingual Q5M PRN chest 05/16/23 12/23/23 Unknown tablet pain #25 tabs metoprolol tartrate 100 mg tablet 100 mg PO Q12H #180 tabs 05/23/23 12/23/23 Unknown gabapentin 300 mg capsule 300 mg PO BID #60 caps 09/25/23 12/23/23 Unknown spironolactone 25 mg tablet 25 mg PO DAILY #90 tabs 10/31/23 12/23/23 Unknown lactulose 10 gram/15 mL oral 20 g PO UD 12/23/23 12/23/23 Unknown solution (Enulose) linaclotide 145 mcg capsule 145 mcg PO UD 12/23/23 12/23/23 Unknown (Linzess) omeprazole 20 mg capsule,delayed 20 mg PO UD 12/23/23 12/23/23 Unknown release triamterene 37.5 1 cap PO WK 12/23/23 12/23/23 Unknown mg-hydrochlorothiazide 25 mg capsule Active Medications Generic Name Dose Route Start Last Admin Trade Name Freq PRN Reason Stop Dose Admin Pantoprazole Sodium 40 mg in 10 mls @ 5 mls/min 12/23/23 21:00 12/26/23 09:34 Protonix IV 01/22/24 20:59 5 mls/min BID GUCCI Administration Digoxin 250 mcg/ Syringe 10 mls @ 2 mls/min 12/23/23 16:00 12/25/23 16:01 IV 01/22/24 15:59 2 mls/min DAILY@1600 GUCCI Administration Amiodarone HCl/Dextrose 360 mg in 200 mls @ 16.667 mls/hr 12/25/23 00:30 12/26/23 02:56 Nexterone / D5w IV 01/24/24 00:29 0.5 mg/min .Q12H GUCCI 16.7 mls/hr Administration 0.5 MG/MIN Metoprolol Tartrate 5 mg 12/23/23 21:00 12/26/23 10:01 Metoprolol Tartrate 1 Mg/Ml Vial IV 01/22/24 20:59 5 mg Q4 GUCCI Administration Miscellaneous 1 each 12/24/23 08:59 12/26/23 09:34 Remove Nicoderm Patch N/A 01/23/24 08:58 1 each DAILY@0859 GUCCI Administration Nicotine 1 patch 12/23/23 09:15 12/26/23 09:32 Nicotine 21 Mg/24 Hr Tdsy TD 01/22/24 09:14 1 patch QAM GUCCI Administration NPO Date Last Intake of Fluids: 12/25/23 Time Last Intake of Fluids: 23:00 Date Last Intake of Solids: 12/24/23 Time Last Intake of Solids: 12:00 Exercise / Class Metabolic Activity II 4-5 Yardwork/Stairs/Walk up hill Past Family History Family History Uncle Colorectal cancer Father Myocardial infarction Grandfather (Paternal) Myocardial infarction Denies family history of Ovarian cancer Prostate cancer Breast cancer Past Surgical History Surgical History S/P prostatectomy History of tonsillectomy Past Anesthesia History No Hx of Anesthesia Complications History of PONV No Hx of PONV Social History Smoking Status: Never smoker Do You Dip or Chew Tobacco: Yes Hx Alcohol Use: No alcohol intake frequency: holidays/special occasions only Hx Substance Use: No Review of Systems ROS Unobtainable: All systems reviewed & are unremarkable except as noted in HPI & below Physical Exam Vital Signs Last Vital Signs Temp 36.3 C L 12/26/23 09:35 Pulse 81 12/26/23 10:01 Resp 18 12/26/23 09:35 BP 113/70 12/26/23 10:01 Pulse Ox 96 12/26/23 09:35 O2 Del Method Room Air 12/26/23 09:35 ENMT Thyromental Distance: > or= 3.5 Finger Breadths Mallampati Class: II Respiratory normal respiratory effort Auscultation: lungs clear to auscultation bilaterally Cardiovascular Rate/Rhythm: regular rate and regular rhythm Psychiatric Orientation: alert and oriented x 3 Testing Laboratory Results 12/26/23 07:26 12/26/23 07:26 PT 11.3 Seconds (9.0-12.0) 12/26/23 07:26 INR 1.0 (0.9-1.1) 12/26/23 07:26 Blood Type O Positive 12/23/23 09:02 Antibody Screen NEGATIVE 12/23/23 09:02 Echocardiogram EF: 25% LV Function: dysfunctional Valvular Disease: + MR
--- NOTE | 2023-12-26 12:53 | GI REPORT ---
[facility] Patient: PRICILA DUONG : 1940 Sex at : Male Age: 83 Years Procedure: Colonoscopy Date: 12/26/2023 Attending Physician: Herrera Gongora MD Referring MD: Tamie You Indications: - Hematochezia Medications: - Monitored Anesthesia Care Complications: - No immediate complications. Procedure: - Prior to the procedure, a History and Physical was performed, and patient medications and allergies were reviewed. The patient's tolerance of previous anesthesia was also reviewed. The risks and benefits of the procedure and the sedation options and risks were discussed with the patient. All questions were answered, and informed consent was obtained. [Anticoagulant Agents] [Days Prior to Procedure]. [ASA Grade]. After reviewing the risks and benefits, the patient was deemed in satisfactory condition to undergo the procedure. - The adult colonoscope was introduced through the anus and advanced to the cecum, identified by appendiceal orifice and ileocecal valve. - The colonoscopy was performed without difficulty. - The patient tolerated the procedure well. - The quality of the bowel preparation was poor. - [Anatomical Structures] photographed. Findings: - The perianal and digital rectal examinations were normal. - A diminutive (1-3 mm) polyp was found in the cecum. The polyp was sessile. [Resection & Retrieval]. The polyp was removed with a piecemeal technique using a cold biopsy forceps. Resection was complete, and retrieval was complete. To prevent bleeding after the polypectomy, one hemostatic clip was successfully placed. - A 10 mm polyp was found in the ascending colon. The polyp was sessile. [Method]. [Resection & Retrieval]. The polyp was removed with a hot snare. Resection and retrieval were complete. To prevent bleeding after the polypectomy, one hemostatic clip was successfully placed. Clip salesperson sheet music: [Clip salesperson sheet music]. [Bleeding present]. - A moderate amount of stool was found in the entire colon, interfering with visualization. - The exam was otherwise without abnormality. Impression: - Preparation of the colon was poor. - One diminutive (1-3 mm) polyp in the cecum, removed piecemeal using a cold biopsy forceps. Resected and retrieved. Clip was placed. - One 10 mm polyp in the ascending colon, removed with a hot snare. Resected and retrieved. Clip was placed. - Stool in the entire examined colon. - The examination was otherwise normal. Recommendation: - Await pathology results. - Resume previous diet. - Repeat colonoscopy [day] [reason]. - Patient has a contact number available for emergencies. The signs and symptoms of potential delayed complications were discussed with the patient. Return to normal activities tomorrow. Written discharge instructions were provided to the patient. Procedure Code(s): - 98723, Colonoscopy, flexible; with removal of tumor(s), polyp(s), or other lesion(s) by snare technique - 52326-90, Colonoscopy, flexible; with biopsy, single or multiple Diagnosis Code(s): - D12.0, Benign neoplasm of cecum - D12.2, Benign neoplasm of ascending colon CPT(R) - 202 copyright [employer]. All Rights Reserved. The CPT codes, CCI edits and ICD codes generated are intended as suggestions and were generated based on input data. These codes are preliminary and upon local truck driver review may be revised to meet current compliance and payer requirements. The provider is responsible for the final determination of appropriate codes, and modifiers. Herrera Gongora MD This document has been electronically signed. Note Initiated:12/26/2023 Note Completed:12/26/2023 12:52 PM [id number]
[2023-12-26] MEDS: LIDOCAINE 2% 2 ML VIAL/AMP(20MG/ML) INFIL ONE (13:23)
[2023-12-26] MEDS: ePHEDrine sulfate 50 MG/ML AMP ONE (13:24)
[2023-12-26] MEDS: ONDANSETRON INJ 2 MG/ML 2 ML VIAL ONE (13:24)
[2023-12-26] MEDS: PROPOFOL IV EMULSION 10 MG/ML 20 ML VIAL IV ONE (13:24)
--- NOTE | 2023-12-26 13:37 | Anesthesiology Progress Note ---
Date of Service December 26, 2023 Anesthesia Post Procedure Vital Signs Vital Signs: Temp Pulse Pulse Pulse Resp BP BP 12/26/23 12:46 96 H 16 12/26/23 12:32 100 H 16 12/26/23 12:24 97 H 97 H 10 L 12/26/23 11:27 36.4 C L 87 16 105/76 12/26/23 11:00 12/26/23 10:20 84 110/72 12/26/23 10:01 81 113/70 12/26/23 09:35 36.3 C L 81 18 12/26/23 03:59 68 125/80 12/26/23 03:44 36.8 C 88 20 132/75 12/26/23 03:33 88 132/75 12/26/23 00:08 80 110/71 12/26/23 00:05 36.7 C 80 16 12/25/23 20:57 77 113/74 12/25/23 20:38 77 133/94 12/25/23 20:00 12/25/23 19:31 36.6 C 77 20 133/84 12/25/23 16:01 78 12/25/23 15:48 74 124/75 12/25/23 15:10 36.5 C 74 18 12/25/23 14:42 83 BP Pulse Ox O2 Del Method O2 Flow Rate 12/26/23 12:46 109/59 L 95 Room Air 12/26/23 12:32 104/66 98 Oxymask 6 12/26/23 12:24 107/59 L 100 Oxymask 6 12/26/23 11:27 99 Room Air 12/26/23 11:00 Room Air 12/26/23 10:20 12/26/23 10:01 12/26/23 09:35 113/70 96 Room Air 12/26/23 03:59 12/26/23 03:44 95 Room Air 12/26/23 03:33 12/26/23 00:08 12/26/23 00:05 110/71 93 Room Air 12/25/23 20:57 12/25/23 20:38 12/25/23 20:00 Room Air 12/25/23 19:31 97 Room Air 12/25/23 16:01 12/25/23 15:48 12/25/23 15:10 124/75 95 Room Air 12/25/23 14:42 Pain Intensity Buttock: Pain Intensity: 3 Transfer of Care Handoff Completed per policy Notes Mental Status: alert / awake / arousable and participated in evaluation Nausea / Vomiting: adequately controlled Pain: adequately controlled Airway Patency, RR, SpO2: stable & adequate BP & HR: stable & adequate Hydration State: stable & adequate Anesthetic Complications: no major complications apparent and Pt Satisfied with anesthetic care
--- NOTE | 2023-12-27 06:49 | Hospitalist Progress Note ---
Date of Service December 27, 2023 Assessment & Plan (1) Rectal bleeding: (2) Atrial fibrillation with RVR: (3) Hypotension: (4) HFrEF (heart failure with reduced ejection fraction): (5) Supratherapeutic INR: (6) Acute lower gastrointestinal hemorrhage: (7) Dehydration: Plan Pt is an 83 yo male with a past medical history of HFrEF, moderate pulm HTN, afib with RVR on warfarin, CAD, HTN, HLD, and hx of orthostatic hypotension who presents to the hospital on 12/22 for 2 months of on and off GI bleed with acute episode of copious BRBPR. #Rectal bleeding - pt presented with intermittent rectal bleed x2 mo with acute bleed on 12/22 of BRBPR - Hgb on admission 14.7 dropped to 12.1 - INR supratherapeutic INR > 9.5, on warfarin for a fib, improved - A/P CT revealed mid to distal rectum with active extravasation; clots; coexistent mass cannot be excluded - Kcentra 4000u and Phytodianone 10u given in the ED - colonoscopy done 12/25, polyps removed, no further interventions planned, ok to start anticoagulation #Afib with RVR - metoprolol initially held for low BP, continued now - on digoxin, also on amiodarone drip for widened ventricular complexes - may transition IV digoxin and amiodarone to po later today - rate controlled overnight #Agitation - noted on 12/24 to be aggressive and combative with nursing staff - prn zyprexa started #Hypotension, resolved - IV bolus given in ED - improved with holding lasix, spironolactone, and triamtrene-HCTZ #HFrEF - Echocardiogram with LVEF at 25-30% and severe global hypokinesis of left ventricle (02/2023) - Daily weights - Strict I&O monitoring Dispo: PT/OT pending. Will advance diet to regular heart healthy tonight since no more GI interventions planned. If does well with PT/OT and stable overnight, probable D/C tomorrow. VTE PPx: To restart home warfarin today but 2.5 mg dosing daily since pt came in quite supratherapeutic with every other day 5 mg dosing Admission and Anticipated Discharge Date Admission Date: December 23, 2023 Supervising Physician Co-Signing Physician Notes Attending Physician Supervision Note: I independently interviewed and examined the patient and verified the mcbride history and physical, reviewed labs and image studies and agree with findings and care plan noted above. no further agitation. sitting in chair. denies rectal bleeding. vitals noted fatigued but nad heent nc at mmm breathing unlabored no accessory muscles good effort skin no rashes no pallor or icterus neuro no focal deficits lower GI bleeding - s/p 1 unit pRBC. -colonoscopy - 2 polyp resected. prep poor. -advance diet -resume coumadin per communication with GI -will monitor overnight. A fib - d/c amiodarone drip. increase home digoxin dose to PO .25mcg daily, transition metoprolol to PO. resume coumadin. HFrEF/HTN - euvolemic. Holding lasix 40mgs, spironolactone 25mgs, Dyazide one tab daily. -will resume spironolactone. Agitation - resolved. if no recurrence of bleeding - d/c home in am. otherwise as above Subjective Pt states he is feeling okay today. Better today than yesterday. He states he was pleasantly surprised he had no pain anywhere after colonoscopy but also states he is 83 years old and never had a colonoscopy so was not sure what to expect but expected it to be painful. He states he woke up last night to large volume of stool incontinence, but his stooling is slowly getting better after last dose of miralax was yesterday. No nausea or vomiting. No questions or concerns otherwise today. No chest pain or SOB. No fever or chills. Review of Systems Review of Systems: Per HPI. Physical Exam Physical Exam: General:Alert and oriented, sitting on chair beside bed this morning Cardio: Irregularly irregular rhythm, + murmur, Resp:Lungs clear to auscultation b/l, GI: Soft and nontender, nondistended, bowel sounds hyperactive Skin: Warm, pink, dry, Results & Data Results & Data Vital Signs (Past 12 Hours) Vital Signs Temp Pulse Pulse Pulse Resp BP BP 12/27/23 03:25 65 110/68 12/27/23 03:23 36.8 C 65 20 110/68 12/27/23 00:36 78 108/70 12/27/23 00:16 87 132/79 12/26/23 22:41 36.9 C 87 21 132/79 12/26/23 20:25 92 H 99/62 L 12/26/23 20:00 12/26/23 19:49 36.9 C 92 H 20 BP Pulse Ox O2 Del Method 12/27/23 03:25 12/27/23 03:23 93 Room Air 12/27/23 00:36 12/27/23 00:16 12/26/23 22:41 97 Room Air 12/26/23 20:25 12/26/23 20:00 Room Air 12/26/23 19:49 99/62 L 97 Room Air Resident Activity Tracking Resident Involvement: Resident Care Provided Care Provided: Adult Hospital Medicine
[2023-12-27 07:58] LABS: Basophils # (auto) 0.03 K/uL (0.00-0.20); Basophils % (auto) 0.5 %; Eosinophils # (auto) 0.19 K/uL (0.00-0.50); Eosinophils % (auto) 3.2 %; Hematocrit (blood only) 29.3 % (42.0-52.0); Hemoglobin 9.8 g/dl (14.0-18.0); Immature Granulocytes # (auto) 0.03 K/uL (0.01-0.20); Immature Granulocytes % (auto) 0.5 %; Lymphocytes # (auto) 0.72 K/uL (1.20-3.40); Mean Corpuscular Hemoglobin 32.2 pg (25.0-34.0); Mean Corpuscular Hgb Conc 33.4 g/dL (32.0-36.0); Mean Corpuscular Volume 96.4 fL (80.0-100.0); Monocytes # (auto) 0.54 K/uL (0.11-0.59); Neutrophils # (auto) 4.47 K/uL (1.40-6.50); Neutrophils % (auto) 74.8 %; Platelet Count 197 K/uL (130-400); RDW Standard Deviation 45.1 fL (36.4-46.3); Red Blood Count 3.04 M/uL (4.70-6.10); White Blood Count 5.98 K/ul (4.8-10.8)
[2023-12-27 08:07] LABS: Albumin Globulin Ratio 1.5 (0.9-2); Albumin Level 2.9 gm/dl (3.4-5.0); BUN Creatinine Ratio 6.8 (10-20); Bilirubin,Total 0.6 mg/dl (0.2-1.0); Calcium 8.5 mg/dl (8.6-10.3); Potassium 3.4 mmol/L (3.5-5.1); Total Protein 4.9 gm/dl (6.0-8.3)
--- NOTE | 2023-12-27 10:06 | Electrocardiogram Report ---
Test Reason : Blood Pressure : */* mmHG Vent. Rate : 87 BPM Atrial Rate : 65 BPM P-R Int : * ms QRS Dur : 88 ms QT Int : 372 ms P-R-T Axes : * 19 250 degrees QTcB Int : 447 ms Atrial fibrillation with premature ventricular or aberrantly conducted complexes Low voltage QRS Nonspecific ST and T wave abnormality Abnormal ECG When compared with ECG of 23-Dec-2023 08:58, (unconfirmed) No significant change was found Confirmed by Jesse Hurtado ([id number]) on 12/27/2023 10:06:00 AM Referred By: REFERRED SELF Confirmed By: Jesse Hurtado
[2023-12-27] MEDS: POTASSIUM CHLORIDE CRTAB 20 MEQ TABCR PO STA (14:15)
[2023-12-27] MEDS: METOPROLOL TARTRATE 50 MG TAB PO STA (15:09)
[2023-12-27] MEDS: SPIRONOLACTONE 25 MG TAB PO SCH (15:09)
[2023-12-27] MEDS: WARFARIN SOD 2.5 MG TAB PO SCH (17:34)
[2023-12-27] MEDS: DIGOXIN 0.125 MG TAB PO SCH (17:34)
[2023-12-27] MEDS: METOPROLOL TARTRATE 50 MG TAB PO SCH (20:24)
[2023-12-27] MEDS: PANTOprazole 40 MG TAB PO SCH (20:24)
[2023-12-27] MEDS: OLANZapine ZYDIS 5 MG ORALLY DIS. TAB PO PRN (23:09)
[2023-12-28 07:09] LABS: Basophils # (auto) 0.03 K/uL (0.00-0.20); Basophils % (auto) 0.6 %; Eosinophils % (auto) 3.9 %; Hematocrit (blood only) 29.4 % (42.0-52.0); Hemoglobin 9.7 g/dl (14.0-18.0); Immature Granulocytes # (auto) 0.02 K/uL (0.01-0.20); Immature Granulocytes % (auto) 0.4 %; Lymphocytes # (auto) 1.06 K/uL (1.20-3.40); Lymphocytes % (auto) 20.6 %; Mean Corpuscular Hemoglobin 32.1 pg (25.0-34.0); Mean Corpuscular Volume 97.4 fL (80.0-100.0); Monocytes # (auto) 0.53 K/uL (0.11-0.59); Monocytes % (auto) 10.3 %; Neutrophils # (auto) 3.31 K/uL (1.40-6.50); Neutrophils % (auto) 64.2 %; Platelet Count 224 K/uL (130-400); RDW Coefficient of Variation 13.2 % (11.5-14.5); RDW Standard Deviation 46.4 fL (36.4-46.3); Red Blood Count 3.02 M/uL (4.70-6.10); White Blood Count 5.15 K/ul (4.8-10.8)
[2023-12-28 07:24] LABS: BUN Creatinine Ratio 4.8 (10-20); Calcium 8.6 mg/dl (8.6-10.3); Creatinine Clr Calc Pharmacy 69.1 ml/min; Potassium 3.8 mmol/L (3.5-5.1)
[2023-12-28 07:28] LABS: INR 1.1 (0.9-1.1); Prothrombin Time 12.2 Seconds (9.0-12.0)
--- NOTE | 2023-12-28 10:27 | Hospitalist Progress Note ---
Date of Service December 28, 2023 Assessment & Plan (1) Rectal bleeding: (2) Atrial fibrillation with RVR: (3) Hypotension: (4) HFrEF (heart failure with reduced ejection fraction): (5) Supratherapeutic INR: (6) Acute lower gastrointestinal hemorrhage: (7) Dehydration: Plan Pt is an 83 yo male with a past medical history of HFrEF, moderate pulm HTN, afib with RVR on warfarin, CAD, HTN, HLD, and hx of orthostatic hypotension who presents to the hospital on 12/22 for 2 months of on and off GI bleed with acute episode of copious BRBPR. #Rectal bleeding - pt presented with intermittent rectal bleed x2 mo with acute bleed on 12/22 of BRBPR - Hgb on admission 14.7 dropped to 12.1 - INR supratherapeutic INR > 9.5, on warfarin for a fib, improved - A/P CT revealed mid to distal rectum with active extravasation; clots; coexistent mass cannot be excluded - Kcentra 4000u and Phytodianone 10u given in the ED - colonoscopy done 12/25, polyps removed, no further interventions planned, restarted warfarin yesterday #Afib with RVR - metoprolol initially held for low BP, continued now as reduced from home dose 50 mg BID metoprolol tartrate - discontinued IV amio yesterday, on oral digoxin double his home dose which will be held today for episode of bradycardia - rate controlled overnight #Agitation - noted on 12/24 to be aggressive and combative with nursing staff - prn zyprexa #Hypotension, resolved - IV bolus given in ED - improved with holding lasix, spironolactone, and triamtrene-HCTZ - spironolactone restarted #HFrEF - Echocardiogram with LVEF at 25-30% and severe global hypokinesis of left ventricle (02/2023) - Daily weights - Strict I&O monitoring Dispo: PT/OT; home PT/OT recommended, staying tonight given adjustment to rate medications to see how he does overnight VTE PPx: Restarted warfarin at 2.5 mg dosing daily yesterday since pt came in quite supratherapeutic with every other day 5 mg dosing Admission and Anticipated Discharge Date Admission Date: December 23, 2023 Supervising Physician Co-Signing Physician Notes Attending Physician Supervision Note: I independently interviewed and examined the patient and verified the mcbride history and physical, reviewed labs and image studies and agree with findings and care plan noted above. dark brown stool. comfortable. no agitation. noted HR in 30s this am. vitals noted fatigued but nad heent nc at mmm breathing unlabored no accessory muscles good effort skin no rashes no pallor or icterus neuro no focal deficits lower GI bleeding - s/p 1 unit pRBC. -colonoscopy - 2 polyp resected. prep poor. -stable h/h -resumed coumadin per communication with GI A fib - bradycardic this am. monitor overnight. hold digoxin today. Monitor overnight. continue metoprolol. continue coumadin. HFrEF/HTN - euvolemic. Resume lasix - will resume with 20mgs (home dose 40mgs), -continue to hold spironolactone 25mgs, Dyazide. -may need midodrine if BP drops. Follow. Agitation - resolved. otherwise as above Subjective Today, pt states he is feeling well. He states he slept well last night and that he has been eating well with no nausea or vomiting. He states his stools are dark but no bright red blood. He states he had several bowel movements yesterday that were loose still but not as bad as the day prior. No concerns noted. Review of Systems Review of Systems: Per HPI. Physical Exam Physical Exam: General:Alert and oriented, sitting up in bed this morning Cardio: Irregularly irregular rhythm, + murmur, Resp:Lungs clear to auscultation b/l, GI: Soft and nontender, nondistended, bowel sounds hyperactive Skin: Warm, pink, dry, Results & Data Results & Data Vital Signs (Past 12 Hours) Vital Signs Temp Pulse Pulse Resp BP Pulse Ox O2 Del Method 12/28/23 08:31 63 12/28/23 07:45 36.9 C 74 19 115/40 L 98 Room Air 12/28/23 03:19 37.2 C 73 20 108/60 98 Room Air 12/27/23 23:56 74 12/27/23 23:16 37.0 C 71 20 113/66 97 Room Air Resident Activity Tracking Resident Involvement: Resident Care Provided Care Provided: Adult Hospital Medicine
[2023-12-29 00:38] VITALS: RESP 18
[2023-12-29 06:41] LABS: Basophils # (auto) 0.03 K/uL (0.00-0.20); Basophils % (auto) 0.5 %; Eosinophils # (auto) 0.29 K/uL (0.00-0.50); Eosinophils % (auto) 5.1 %; Hematocrit (blood only) 30.9 % (42.0-52.0); Hemoglobin 10.3 g/dl (14.0-18.0); Immature Granulocytes # (auto) 0.02 K/uL (0.01-0.20); Immature Granulocytes % (auto) 0.4 %; Lymphocytes # (auto) 1.29 K/uL (1.20-3.40); Lymphocytes % (auto) 22.6 %; Mean Corpuscular Hemoglobin 32.5 pg (25.0-34.0); Mean Corpuscular Hgb Conc 33.3 g/dL (32.0-36.0); Mean Corpuscular Volume 97.5 fL (80.0-100.0); Mean Platelet Volume 9.7 fL (9.4-12.4); Monocytes # (auto) 0.48 K/uL (0.11-0.59); Monocytes % (auto) 8.4 %; Platelet Count 204 K/uL (130-400); RDW Coefficient of Variation 13.2 % (11.5-14.5); RDW Standard Deviation 46.9 fL (36.4-46.3); Red Blood Count 3.17 M/uL (4.70-6.10); White Blood Count 5.71 K/ul (4.8-10.8)
[2023-12-29 07:06] LABS: BUN Creatinine Ratio 8.6 (10-20); Calcium 8.4 mg/dl (8.6-10.3); Creatinine Clr Calc Pharmacy 71.6 ml/min; Potassium 3.6 mmol/L (3.5-5.1)
[2023-12-29 07:12] LABS: INR 1.3 (0.9-1.1); Prothrombin Time 13.4 Seconds (9.0-12.0)
[2023-12-29 08:03] VITALS: O2SAT 97
[2023-12-29] MEDS: FUROSEMIDE 20 MG TAB PO SCH (08:28)
[2023-12-29 10:49] VITALS: BP 94/60; TEMP 98.1
--- NOTE | 2023-12-29 11:59 | Discharge Summary ---
Date of Service December 29, 2023 Admission HPI Per Admitting Provider Lukas is an 83-year-old male with PMH of HFrEF, pulmonary hypertension, atrial fibrillation with RVR (on warfarin), CAD, dyslipidemia, stroke, orthostatic hypotension, and PVD. He presented via EMS on 12/22 after having BRB rectal bleeding x 2+ months. Per EMS, there were bedsheets in the bathtub soaked in blood. Patient reports that he came in today because there was more bleeding than usual, and was getting too concerned. He wears a briefs at baseline, and has fecal incontinence and reports is leaking blood throughout the day. He does say he has stool in his bowel movements that he describes as "thick syrup". He also notes blood clots in his bowel. Patient lives with his . Patient's helps to manage his medications at home. He is unsure if he took his regular morning medicines today. He does believe he last took warfarin yesterday evening for A-fib. No recent change in medications. Per patient, he does not follow with anticoagulant clinic. Patient reports he has been having rectal pain that comes in waves; he rates the pain 8/10 at present. He has been taking Tylenol at home, which does help. While no radiation around the flanks or down the legs, he reports that he does have chronic neuropathy in his legs at baseline. Patient reports his last meal was last night. He is unsure when his last colonoscopy was, and wants to avoid one if possible. Patient reports he is an everyday tobacco chewer, and would like a nicotine patch while inpatient. He denies smoking, tobacco use, recent alcohol use. Patient is tachycardic at 111 bpm at time of admission; vitals otherwise stable. ED course: Phytonadioine 10mg IV PCC 4000 units Nicotine patch ROS: Patient endorses BRB in rectum, "thick syrup" bowel movements x 2 months, melena, diarrhea, fecal incontinence, rectal pain, and headache. Patient denies fever, chest pain, chest palpitations, SOB, cough, pleuritic CP, hemoptysis, abdominal pain, N/V, or saddle anesthesia. Admission Exam Per Admitting Provider General: no acute distress; non-toxic appearing; well-nourished; SpO2 97% on RA HEENT: normocephalic, atraumatic; no scleral icterus; PERRLA w/ EOMs intact; vision and hearing grossly intact Neck: supple; no lymphadenopathy; trachea midline Skin: warm, dry without signs of tenting; no cyanosis; no rashes, bruising, lesions, or erythema noted CV: chest wall NTP; irregularly irregular rhythm, tachycardic around 160 bpm; S1/S2 normal; no murmurs/rubs/gallops; pulses intact and symmetric at radial, DP, and PT Lungs: no acute respiratory distress; symmetrical chest wall expansion; clear breath sounds across all lung ortiz w/o adventitious sounds; no wheezing ABD: Soft, NTP; BS present; no rebound/guarding; no distention; no rashes or bruising on the abdomen or flanks bilaterally Rectum: Briefs in place; bright red blood in rectum and in briefs MSK: no tics or fasciculations; no edema noted in the LEs b/l, nonerythematous Neuro: A&Ox3; normal mood and affect; fluent speech; no focal deficits; sensation intact and symmetric in lower extremities bilaterally Principal Diagnosis GI bleed Discharge Exam General:Alert and oriented, sitting up in bed this morning Cardio: Irregularly irregular rhythm, + murmur, Resp:Lungs clear to auscultation b/l, GI: Soft and nontender, nondistended, bowel sounds active Skin: Warm, pink, dry, Discharge Data Allergies Allergy/AdvReac Type Severity Reaction Status Date / Time Cephalosporins Allergy Severe ANAPHYLAXIS Verified 05/12/23 11:55 TO PCN diazepam Allergy Unknown UNKNOWN Verified 05/12/23 11:55 Penicillins Allergy Unknown ANAPHYLAXIS Verified 05/12/23 11:55 simvastatin Allergy Unknown MYALGIA Verified 05/12/23 11:55 shellfish derived Allergy Verified 05/12/23 11:55 codeine AdvReac Mild HEADACHE Verified 05/12/23 11:55 shrimp AdvReac Verified 05/12/23 11:55 Consultations 12/23/23 10:45 ED Decision to Admit Stat 12/23/23 11:34 Consult Gastroenterology Routine Procedures Performed Operation Date: 12/26/23 16:30 Actual Procedures p Colonoscopy Polypectomy - Herrera Gongora MD Ordered Studies 12/23/23 09:07 CT abd pelvis IV con only Stat Hospital Course (1) Rectal bleeding: (2) Atrial fibrillation with RVR: (3) Hypotension: (4) HFrEF (heart failure with reduced ejection fraction): (5) Supratherapeutic INR: (6) Acute lower gastrointestinal hemorrhage: (7) Dehydration: Plan Pt is an 83 yo male with a past medical history of HFrEF, moderate pulm HTN, afib with RVR on warfarin, CAD, HTN, HLD, and hx of orthostatic hypotension who presents to the hospital on 12/22 for 2 months of on and off GI bleed with acute episode of copious BRBPR. #Rectal bleeding, resolved - pt presented with intermittent rectal bleed x2 mo with acute bleed on 12/22 of BRBPR - Hgb on admission 14.7 dropped to 12.1, stable around 10 since - INR supratherapeutic INR > 9.5, on warfarin for a fib, improved, which very well contributed to his presentation - A/P CT revealed mid to distal rectum with active extravasation; clots; coexistent mass cannot be excluded - colonoscopy done 12/25, polyps removed, no further interventions planned, restarted warfarin with stable hemoglobin #Afib with RVR - metoprolol initially held for low BP, continued now as reduced from home dose 50 mg BID metoprolol tartrate - discontinued IV amio, on oral digoxin double his home dose for tachycardia but double dose caused bradycardia so held for 1 day and restarted at home dose on discharge - rate controlled and acceptable overnight #Agitation, resolved - had some aggression with staff but only at nighttime, he is re-directable and pleasant during the day #Hypotension, resolved - IV bolus given in ED - improved with holding lasix, spironolactone, and triamtrene-HCTZ - spironolactone restarted #HFrEF - Echocardiogram with LVEF at 25-30% and severe global hypokinesis of left ventricle (02/2023) Medication changes from this hospital stay on discharge: - home metoprolol tartrate 100 mg BID -> 50 mg BID - restart home digoxin with no changes (was on IV/double dose here) - home warfarin -> 2.5 mg daily from now until f/u with PCP for INR given supratherapeutic on admission >9.5 - lasix 40 mg daily -> 20 mg daily - hold home triamterene-HCTZ - hold home spironolactone Total Time Total Time Spent Total Time Spent (In Minutes): As per attending attestation. Discharge Plan Discharge Items Patient Disposition: Home - Home Health Services Reason For Visit: RECTAL BLEED, SUPRATHERAPEUTIC INR Discharge Diagnosis: GI bleed, supratherapeutic INR Activity: Resume your previous activity Non-emergency contact: Primary Care Provider Call non-emergency contact if: you have any medication questions, your symptoms worsen and you have a fever Follow-up/Referrals: Sole Ibarra MD [Primary Care Provider] - 01/08/24 12:30 pm (Hospital follow up scheduled for January 08, 2024 at 12:30 pm) Diet: Regular Addtl Attending Provider Instructions: You were admitted to the hospital for an acute GI/rectal bleed. A colonoscopy has been done during your hospital stay and aside from removal of some polyps, it looked okay. Your heart rate was also noted to be very elevated when you came into the hospital, but has since improved. We feel it is safe for you to go home with home services at this time. We do think part of the reason you had a bleed was because your warfarin levels were too high. There will be several medication changes from this visit, so please review them carefully. Here are the following medication changes: - your home metoprolol tartrate 100 mg twice daily will be decreased to 50 mg twice daily on discharge (a new script will be sent) - your home warfarin will be taken as 2.5 mg (1 tablet) daily until adjusted by your primary care physician (a new script will be sent) - your home lasix (furosemide) 40 mg daily will be decreased to 20 mg daily (a new script will be sent) - please STOP your home triamterene-HCTZ until you follow up with your primary care provider given low blood pressures here - please STOP your home spironolactone until you follow up with your primary care provider given low blood pressures here You should call your primary care provider today to let them know you have been in the hospital and make an appointment to follow with them early next week. Pending Studies at Discharge: No Stand-Alone Forms: My [facility] Medications and DC Order Prescriptions: New warfarin [Jantoven] 2.5 mg Tablet 2.5 mg PO DAILY@1600 30 Days Qty: 30 1RF metoprolol tartrate 50 mg Tablet 50 mg PO BID 30 Days Qty: 60 1RF furosemide 20 mg Tablet 20 mg PO QAM Qty: 30 1RF Continued nitroglycerin 0.4 mg tablet, sublingual 0.4 mg sublingual Q5M PRN (Reason: chest pain) Qty: 25 5RF Rx Instructions: do not exceed 3 doses per episode gabapentin 300 mg capsule 300 mg PO BID Qty: 60 2RF calcium carbonate-vitamin D3 [Caltrate with Vitamin D3] 600 mg(1,500mg) -800 unit tablet 1 tab PO DAILY acetaminophen [Tylenol Extra Strength] 500 mg tablet 1,000 mg PO Q8H betamethasone dipropionate 0.05 % lotion 1 applic topical DAILY Qty: 60 1RF Rx Instructions: Apply to the scalp as needed for itching or redness. digoxin 125 mcg (0.125 mg) tablet 125 mcg PO DAILY Qty: 90 3RF omeprazole 20 mg capsule,delayed release(DR/EC) 20 mg PO UD Rx Instructions: 20 mg po daily. pt said he takes medication. last filled in mar for 30 day supply lactulose [Enulose] 10 gram/15 mL solution 20 g PO UD Rx Instructions: pt said he takes, last filled in mar 7 day supply Linzess 145 mcg capsule 145 mcg PO UD Rx Instructions: 145mg po daily. pt didnt seem sure of medication. No fill history Discontinued metoprolol tartrate 100 mg tablet 100 mg PO Q12H Qty: 180 3RF spironolactone 25 mg tablet 25 mg PO DAILY Qty: 90 2RF furosemide 40 mg tablet 40 mg PO DAILY Qty: 90 3RF warfarin 5 mg tablet 5 mg PO .COMPLEX Qty: 60 5RF Protocol: Dose Management Condition: Monday Dose/Route: 2.5 mg Instruction: 0.5 x 5 mg tablets Condition: Monday Dose/Route: 5 mg Instruction: 1 x 5 mg tablet Condition: Monday Dose/Route: 2.5 mg Instruction: 0.5 x 5 mg tablets Condition: Monday Dose/Route: 5 mg Instruction: 1 x 5 mg tablet Condition: Dose/Route: 2.5 mg Instruction: 0.5 x 5 mg tablets Condition: Monday Dose/Route: 5 mg Instruction: 1 x 5 mg tablet Condition: Monday Dose/Route: 2.5 mg Instruction: 0.5 x 5 mg tablets Protocol Text: Adjustment Start Date: Monday03/30/21 INR Value: 2.8 INR Date: 03/30/21 Recheck Date: 04/29/21 Rx Instructions: Take 1 tablet on Monday and Fridays and then 0.5 tablet on all other days. triamterene-hydrochlorothiazid 37.5-25 mg capsule 1 cap PO WK Rx Instructions: last filled 10/30 90 day supply Discharge Orders: Discharge Order (Routine); Ordered 12/29/23 Ordered By: Tamie Tian/Other Patient Handouts: Chest and Lung Problems, Taking Your Blood Pressure, Dehydration, Medicines for Heart Disease Admission Data Admit Date/Time: 12/23/23 11:46 Attending Provider: Tamie You Admit Provider: Efren Bañuelos Primary Care Provider: Sole Ibarra Other Providers: Efren Bañuelos; Antonina Putnam Jr; Sonido Morales Other Interventions: Discharge Summary Assessment (RN) Last Done: 12/29/23 13:10 Supervising Physician Co-Signing Physician Notes Attending Physician Supervision Note: I independently interviewed and examined the patient and verified the mcbride history and physical, reviewed labs and image studies and agree with findings and care plan noted above. No rectal bleeding or black stool. HR in 80s. vitals noted fatigued but nad heent nc at mmm breathing unlabored no accessory muscles good effort skin no rashes no pallor or icterus neuro no focal deficits GI bleeding in setting of supratherapeutic INR - s/p 1 unit pRBC. -colonoscopy - 2 polyp resected. prep poor. -stable h/h -resumed coumadin per communication with GI A fib - due to bradycardia cut metoprolol dose to 50mgs bid (from 100mgs bid). continue home dose digoxin. continue coumadin at lower dose. Supratherapeutic INR - resumed warfarin after colonoscopy at lower dose of 2.5mgs daily. INR today 1.3. will need INR check on monday HFrEF/HTN - euvolemic. Resumed lasix at 20mgs (home dose 40mgs) due to lower BP readings, -d/c spironolactone, Dyazide. can be re-added if BP allows. -may need midodrine. Agitation - resolved. otherwise as above Resident Activity Tracking Resident Involvement: Resident Care Provided Care Provided: Adult Hospital Medicine
[2023-12-29 13:10] VITALS: PULSE 92
--- NOTE | 2024-01-02 13:31 | Coding Query ---
CODING QUERY To promote full compliance with coding requirements relating to patient care, provider participation is requested in all cases of icd 9 coder uncertainty. Please assist us with the question(s) below: Coding Question(s): Pt admitted with Lower GI bleed, which had persisted 2 months intermittently prior to admission. Pt with ABLA had colonoscopy- 2 polyps removed. On admission PT/INR > 90 , treated with Vitamin K. Please document, if known or suspected, the etiology of the Lower GI bleed. Thanks for your help! Wade Resendiz [facility] Physician's Response(s): Colonoscopy prep was poor. No active site of bleeding was found. 2 polyps were removed. Principal Diagnosis: "that condition established after study, to be chiefly responsible for occasioning the admission of the patient to the hospital for care." Co-Existing Principal Diagnosis: "when two or more diagnoses equally meet the criteria for principal diagnosis as determined by the circumstances of admission, diagnostic work up, and/or therapy provided, and the Alphabetic Index, Tabular List, or another coding guideline does not provide sequencing direction, any one of the diagnoses may be sequenced first." "When the physician has documented what appears to be a current diagnosis in the body of the record, but has not included the diagnosis in the final diagnostic statement, the physician should be asked whether the diagnosis should be added." (Source Coding [facility] 2 QTR90. p3-4) LORIE
== END 2023-12-29 13:36 | disposition home health service (06) | DRG 378 ==
LOC: ED 08:47 → EDINP 11:46 → SUATTDRO 11:46 → 2S 17:49

== ENCOUNTER 2024-08-07 19:48 | Inpatient (IN) ==
[2024-08-07 20:14] LABS: Hematocrit (blood only) 39.9 % (42.0-52.0); Hemoglobin 13.6 g/dl (14.0-18.0); Immature Granulocytes # (auto) 0.04 K/uL (0.01-0.20); Immature Granulocytes % (auto) 0.4 %; Mean Corpuscular Hemoglobin 32.0 pg (25.0-34.0); Mean Corpuscular Volume 93.9 fL (80.0-100.0); Platelet Count 227 K/uL (130-400); RDW Standard Deviation 43.9 fL (36.4-46.3); Red Blood Count 4.25 M/uL (4.70-6.10); White Blood Count 11.01 K/ul (4.8-10.8)
[2024-08-07 20:33] LABS: Alanine Aminotransferase 34.0 U/L (7-52); Albumin Globulin Ratio 1.0 (0.9-2); Alkaline Phosphatase 60.0 U/L (34-104); Anion Gap 8.0 (3-11); Bilirubin,Total 0.6 mg/dl (0.2-1.0); Blood Urea Nitrogen 9.0 mg/dl (6-23); Calcium 9.1 mg/dl (8.6-10.3); Carbon Dioxide 29.0 mmol/L (21-32); Chloride 101.0 mmol/L (98-107); Creatinine Clr Calc Pharmacy 83.8 ml/min; Globulin 3.5 gm/dl (2.5-4.0); Glucose 120.0 mg/dl (70-99(Fasting)); Potassium 3.2 mmol/L (3.5-5.1); Sodium 138.0 mmol/L (136-145); Total Protein 6.9 gm/dl (6.0-8.3)
[2024-08-07 20:42] LABS: INR 1.0 (0.9-1.1); Prothrombin Time 10.4 Seconds (9.0-12.0)
--- NOTE | 2024-08-07 20:44 | XRay Report ---
EXAM: Portable AP chest radiograph TECHNIQUE: AP portable radiograph of the chest was obtained. INDICATION: Shortness of breath Comparison: Chest radiograph July 27, 2024 FINDINGS: LINES and TUBES: None CARDIOVASCULAR: Cardiac silhouette is stably enlarged in size. Atherosclerosis of the thoracic aorta. LUNGS/PLEURA: Mild pulmonary vascular congestion is similar to previous. No focal consolidation identified. Bibasilar atelectasis. No significant pleural fluid. No discernible pneumothorax. OSSEOUS/OTHER: No displaced acute osseous process identified. IMPRESSION: Similar congestive changes of the cardiovascular system compared to the previous radiograph. Electronically signed by Damien Coronado 08-07-2024 8:44 PM
[2024-08-07 20:48] LABS: Thyroid Stimulating Hormone 1.041 uIu/ml (0.300-4.500)
--- NOTE | 2024-08-07 20:48 | Emergency Department Note ---
Impression & Plan Acute confusion, Word finding difficulty, Delirium ED Provider Note NAME: PRICILA DUONG AGE: 83 SEX: M : 1940 ARRIVES VIA: Ambulance INFORMANT: Patient, ED PROVIDER(S): Shira Page MD CHIEF COMPLAINT: Confusion HPI: This is an 83-year-old male presenting for confusion. Patient states he feels at his baseline and has no acute complaints including pain, fever or chills. No nausea or vomiting. Patient then states nonsense words when asked that his life. He is making sense otherwise. His family does, short time later and states that he has not been appearing well over the past few days. Did not know when his last known well was but over the past 1 day has had confusion, making nonsense speech, significantly weaker than his baseline. Has had no nausea, vomiting, fevers or chills as per family. Patient was found on the ground this afternoon. Unclear if striking head. Patient also open on warfarin previously but none currently as per family. ROS: See above HPI for pertinent positives & negatives. A total of 10 systems reviewed and were otherwise negative. PAST MEDICAL HISTORY: See Below PAST SURGICAL HISTORY: See Below FAMILY HISTORY: See Below SOCIAL HISTORY: See Below HOME MEDICATIONS: See Below ALLERGIES: See Below VITALS: See Below PHYSICAL EXAMINATION: General: Disheveled Head: Normocephalic and atraumatic Eyes: Normal inspection, extraocular muscles intact Ear, nose, throat: Normal external exam Neck: Normal range of motion Respiratory: lungs clear to auscultation bilaterally Cardiovascular: Regular rate/rhythm, no murmur GI: soft, nontender, no guarding or rebound Extremities: nontender, moves all extremities Neuro: Awake, not oriented, moves all extremities, difficulty following commands symmetric faces Skin: Warm, dry, and intact MEDICAL DECISION MAKING: This is a 89-year-old male presented for confusion. Will do screening blood work, urinalysis, CT head., PT/INR. Clinically appears well but is does not always make sense. He has no neurologic deficits on my current exam to his extremities or face. - WBC count is 11, hemoglobin 13.6. INR 1. Slight hypokalemia otherwise no significant abnormalities. Urinalysis negative - CT head negative -Chest x-ray reveals congestive changes - At this time there is no clear reason for patient's current confusion. He is resting comfortably otherwise. Will admit the patient for new onset confusion, word finding difficulties, word salad. Differential diagnosis: Stroke, TIA, encephalopathy, intracranial hemorrhage Independent History obtained from: Son and [id number] Diagnostics interpreted by me: ECG: ECG independently interpreted by me with atrial fibrillation at rate of 81 with PVCs, normal QRS and QTc no ST segment elevations consistent with STEMI criteria Cardiac Monitoring: An order was placed for continuous cardiac monitoring. The monitor shows a rate of 80 with sinus rhythm. Past Med/Surg History Problem List (Updated 08/08/24 @ 01:09 by Shira Page MD) Delirium (Acute) Word finding difficulty (Acute) Acute confusion (Acute) Atrial fibrillation Atrial fibrillation with rapid ventricular response (Acute) Confusion (Acute) Rhabdomyolysis (Acute) Elevated procalcitonin (Acute) Supratherapeutic INR (Acute) Elevated troponin (Acute) Fall (Acute) Bradycardia Retroperitoneal hematoma Dehydration Hypotension Rectal bleeding Supratherapeutic INR (Acute) Acute lower gastrointestinal hemorrhage (Acute) Routine health maintenance HFrEF (heart failure with reduced ejection fraction) Encounter for examination following treatment at hospital Acute respiratory failure with hypoxia Acute on chronic systolic CHF (congestive heart failure) Moderate pulmonary hypertension Moderate to severe mitral regurgitation Atrial fibrillation with RVR Elevated CK SOB (shortness of breath) Elevated d-dimer Swelling of both lower extremities Elevated bilirubin Failure to thrive in adult Fall High anion gap metabolic acidosis Leukocytosis High serum lactate Elevated troponin Acute hypokalemia (Acute) Thrombocytopenia (Acute) CHF (congestive heart failure) (Acute) Non-ST elevation AR (NSTEMI) (Acute) Atrial fibrillation with rapid ventricular response (Acute) Excessive cerumen in right ear canal Venous insufficiency Sleep disturbance Change in bowel movement Encounter for pre-operative examination Chest pain Neuropathy Orthostatic hypotension Skin lesion of scalp Constipation Dysequilibrium Scalp abrasion, infected (Acute) 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 Permanent atrial fibrillation (Acute) CAD (coronary artery disease) Cardiomyopathy Carotid artery stenosis, asymptomatic Chest wall pain Dyslipidemia (Chronic) History of stroke without residual deficits Hyperglycemia (Chronic) HTN (hypertension) (Chronic) Spinal stenosis Vitamin D deficiency (Chronic) Impaired fasting glucose Peripheral vascular disease Medical History Abnormal CT scan, colon Surgical History S/P prostatectomy History of tonsillectomy Family History Uncle Colorectal cancer Father Myocardial infarction Grandfather (Paternal) Myocardial infarction Denies family history of Ovarian cancer Prostate cancer Breast cancer Social History Smoking Status: Former smoker Tobacco Type: Smokeless Tobacco (Dip or Chew) Second Hand Exposure: No; Do You Dip or Chew Tobacco: Yes; Hx Alcohol Use: No Hx Substance Use: No Preferred Language: [place] Communication Ability: Effective Visual Impairment: Limited Hearing Ability: Normal Geospatial Technologist Required: No Beliefs That Will Affect Care: Spiritism marital status: Current Living Situation: Spouse current occupational status: retired How many Children do You have: 3 Feels Safe at Home: Yes Childhood Exposure to Second-Hand Smoke: Yes Diet: regular caffeine: Yes (COFFEE) during the past year weight has: increased > 10 lbs Dental Care, Regularly: No Physical Activity Frequency: Does not Exercise Seatbelt Use: always Sunscreen Use: No Do you think of yourself as: straight/heterosexual Sexual Activity: has been sexually active, but not for at least 12 months Gender Identity: Male Assistive Devices: Cane, Walker and Wheelchair Allergies Allergies Allergy/AdvReac Type Severity Reaction Status Date / Time Cephalosporins Allergy Severe ANAPHYLAXIS Verified 08/07/24 11:16 TO PCN diazepam Allergy Unknown UNKNOWN Verified 08/07/24 11:16 Penicillins Allergy Unknown ANAPHYLAXIS Verified 08/07/24 11:16 simvastatin Allergy Unknown MYALGIA Verified 08/07/24 11:16 shellfish derived Allergy Verified 08/07/24 11:16 codeine AdvReac Mild HEADACHE Verified 08/07/24 11:16 shrimp AdvReac Verified 08/07/24 11:16 Home Meds Home Medications Medication Instructions Recorded Confirmed calcium 600 mg (as 1 tab PO DAILY 12/13/19 08/07/24 carbonate)-vitamin D3 20 mcg (800 unit) tablet (Caltrate with Vitamin D3) acetaminophen 325 mg tablet 975 mg PO TID PRN Pain 08/01/24 08/07/24 digoxin 125 mcg (0.125 mg) tablet 125 mcg PO DAILY 08/01/24 08/07/24 docusate sodium 100 mg capsule 100 mg PO BID 08/01/24 08/07/24 furosemide 20 mg tablet 20 mg PO DAILY 08/01/24 08/07/24 nitroglycerin 0.4 mg sublingual 0.4 mg sublingual Q5M PRN Chest 08/01/24 08/07/24 tablet Pain oxycodone 5 mg tablet 2.5 mg PO Q4H PRN Pain 08/01/24 08/07/24 polyethylene glycol 3350 17 17 g PO DAILY PRN Constipation 08/01/24 08/07/24 gram/dose oral powder (Miralax) sennosides 8.6 mg tablet (senna) 17.2 mg PO AMHS 08/07/24 08/07/24 Previous Rx's Medication Instructions Recorded gabapentin 300 mg capsule 300 mg PO BID #60 caps 07/17/24 metoprolol tartrate 50 mg tablet 50 mg PO BID 30 days #60 tabs 07/17/24 omeprazole 20 mg capsule,delayed 20 mg PO DAILY #90 caps 08/02/24 release Results & Data (ED) Vital Signs Vital Signs - 24 hr 08/07/24 19:54 08/07/24 20:00 08/07/24 20:00 Temperature 37.6 C H Temperature Source Oral Pulse Rate 82 67 Pulse Rate [Apical] Respiratory Rate 20 Blood Pressure 140/84 Blood Pressure [Left Arm] Blood Pressure Mean 102 Blood Pressure Mean [Left Arm] Pulse Oximetry 98 95 Oxygen Delivery Method Room Air Room Air Sepsis Recent Fever Within 48 Hours No Sepsis New/Unexplained Change in Mental Status No Sepsis Action Taken by Nursing No Action Required 08/07/24 20:04 08/07/24 20:47 08/07/24 21:00 Temperature Temperature Source Pulse Rate Pulse Rate [Apical] 94 H 74 80 Respiratory Rate 18 18 16 Blood Pressure Blood Pressure [Left Arm] 120/77 141/90 H 135/86 Blood Pressure Mean Blood Pressure Mean [Left Arm] 91 107 102 Pulse Oximetry 95 95 97 Oxygen Delivery Method Room Air Room Air Room Air Sepsis Recent Fever Within 48 Hours Sepsis New/Unexplained Change in Mental Status Sepsis Action Taken by Nursing 08/07/24 21:30 08/07/24 22:00 08/07/24 22:30 Temperature Temperature Source Pulse Rate Pulse Rate [Apical] 87 92 H 89 Respiratory Rate 16 16 16 Blood Pressure Blood Pressure [Left Arm] 153/98 H 137/96 161/78 H Blood Pressure Mean Blood Pressure Mean [Left Arm] 116 109 105 Pulse Oximetry 96 96 95 Oxygen Delivery Method Room Air Room Air Room Air Sepsis Recent Fever Within 48 Hours Sepsis New/Unexplained Change in Mental Status Sepsis Action Taken by Nursing Laboratory Data 08/07/24 20:00 08/07/24 20:00 Lab Results 08/07/24 08/07/24 Range/Units 20:00 21:04 WBC 11.01 H (4.8-10.8) K/ul RBC 4.25 L (4.70-6.10) M/uL Hgb 13.6 L (14.0-18.0) g/dl Hct 39.9 L (42.0-52.0) % MCV 93.9 (80.0-100.0) fL MCH 32.0 (25.0-34.0) pg MCHC 34.1 (32.0-36.0) g/dL RDW Std Deviation 43.9 (36.4-46.3) fL RDW Coeff of Jean-Paul 12.6 (11.5-14.5) % Plt Count 227 (130-400) K/uL MPV 9.6 (9.4-12.4) fL Immature Gran % (Auto) 0.4 % Neut % (Auto) 79.5 % Lymph % (Auto) 10.0 % [place] % (Auto) 8.4 % Eos % (Auto) 1.3 % Baso % (Auto) 0.4 % Neut # (Auto) 8.76 H (1.40-6.50) K/uL Lymph # (Auto) 1.10 L (1.20-3.40) K/uL [place] # (Auto) 0.93 H (0.11-0.59) K/uL Eos # (Auto) 0.14 (0.00-0.50) K/uL Baso # (Auto) 0.04 (0.00-0.20) K/uL Immature Gran # (Auto) 0.04 (0.01-0.20) K/uL PT 10.4 (9.0-12.0) Seconds INR 1.0 (0.9-1.1) Sodium 138 (136-145) mmol/L Potassium 3.2 L (3.5-5.1) mmol/L Chloride 101 (98-107) mmol/L Carbon Dioxide 29 (21-32) mmol/L Anion Gap 8 (3-11) BUN 9 (6-23) mg/dl Creatinine 0.69 (0.6-1.4) mg/dl Est Cr Clr Drug Dosing 83.8 ml/min eGFR 91.82 BUN/Creatinine Ratio 13.0 (10-20) Glucose 120 H (70-99(Fasting)) mg/dl Calcium 9.1 (8.6-10.3) mg/dl Total Bilirubin 0.6 (0.2-1.0) mg/dl AST 23 (13-39) U/L ALT 34 (7-52) U/L Alkaline Phosphatase 60 (34-104) U/L Total Protein 6.9 (6.0-8.3) gm/dl Albumin 3.4 (3.4-5.0) gm/dl Globulin 3.5 (2.5-4.0) gm/dl Albumin/Globulin Ratio 1.0 (0.9-2) TSH 1.041 (0.300-4.500) uIu/ml Urine Color Yellow Urine Appearance Clear (Clear) Urine pH 5.5 (4.5-7.5) Ur Specific [place] 1.020 (1.000-1.030) Urine Protein 2+ H (Negative) Urine Glucose (UA) Negative (Negative) Urine Ketones Trace H (Negative) Urine Blood Negative (Negative) Urine Nitrite Negative (Negative) Urine Bilirubin Negative (Negative) Urine Urobilinogen Positive H (Negative) Ur Leukocyte Esterase Negative (Negative) Urine WBC (Auto) 0-5 (0-5) /hpf Urine RBC (Auto) 0-2 (0-2) /hpf U Hyaline Cast (Auto) 0-2 (0-2) /lpf U Epithel Cells (Auto) 0-2 (0-2) /hpf Urine Bacteria (Auto) None Seen (None Seen) Urine Comment Administered Medications Discontinued Medications Sodium Chloride (Nss) 1,000 mls @ 999 mls/hr IV .Q1H1M ONE Stop: 08/07/24 21:43 Last Infusion: 08/07/24 21:53 Dose: Infused Documented By: Admin: 08/07/24 20:52 Dose: 999 mls/hr Documented By: AN Imaging Data Radiologist's Impression: Chest X-Ray 08/07/24 20:00 EXAM: Portable AP chest radiograph TECHNIQUE: AP portable radiograph of the chest was obtained. INDICATION: Shortness of breath Comparison: Chest radiograph July 27, 2024 FINDINGS: LINES and TUBES: None CARDIOVASCULAR: Cardiac silhouette is stably enlarged in size. Atherosclerosis of the thoracic aorta. LUNGS/PLEURA: Mild pulmonary vascular congestion is similar to previous. No focal consolidation identified. Bibasilar atelectasis. No significant pleural fluid. No discernible pneumothorax. OSSEOUS/OTHER: No displaced acute osseous process identified. IMPRESSION: Similar congestive changes of the cardiovascular system compared to the previous radiograph. Electronically signed by Damien Coronado 08-07-2024 8:[address] 08/07/24 20:23 Exam(s): CT HEAD Without Contrast EXAM: CT Head Without Intravenous Contrast CLINICAL HISTORY: Reason for exam: confusion, stroke?. TECHNIQUE: Axial computed tomography images of the head/brain without intravenous contrast. CTDI is 114.09 mGy and DLP is 1328.26 mGy-cm. Automated exposure control was utilized for the study. A dose lowering technique was utilized adhering to the principles of ALARA. COMPARISON: Prior head CT from June 05, 2024. FINDINGS: This study is limited secondary to motion artifact. Brain: Unremarkable. No hemorrhage. Moderate nonspecific white matter changes. No edema. Ventricles: Moderate ventriculomegaly. Bones/joints: Unremarkable. No acute fracture. Soft tissues: Unremarkable. Sinuses: Unremarkable as visualized. No acute sinusitis. Mastoid air cells: Unremarkable as visualized. No mastoid effusion. IMPRESSION: No evidence of acute intracranial pathology. Electronically signed by: Pamela Shah MD 08/07/24 23:14 PM Discharge Plan Visit Data Chief Complaint: Altered Mental Status Stated Complaint: ALTERED MENTAL STATUS WORSENING OVER 2 DAYS ED Provider: Shira Page Discharge Problem: Acute confusion, Word finding difficulty, Delirium Patient Disposition: Admitted As Inpatient Condition: Fair Discharge Instructions Interventions: ED Discharge Assessment Last Done: 08/08/24 00:32
[2024-08-07] MEDS: SODIUM CHLORIDE 0.9% 1,000 ML IV ONE (20:52)
[2024-08-07 21:29] LABS: Appearance Urine Clear (Clear); Bacteria Urine Automated None Seen (None Seen); Cast Urine Automated 0-2 /lpf (0-2); Epithelial Cell Urine Auto 0-2 /hpf (0-2); Glucose Urine UA Negative (Negative); RBC Urine Automated 0-2 /hpf (0-2); WBC Urine Automated 0-5 /hpf (0-5)
--- NOTE | 2024-08-07 23:15 | CT Scan Report ---
Exam(s): CT HEAD Without Contrast EXAM: CT Head Without Intravenous Contrast CLINICAL HISTORY: Reason for exam: confusion, stroke?. TECHNIQUE: Axial computed tomography images of the head/brain without intravenous contrast. CTDI is 114.09 mGy and DLP is 1328.26 mGy-cm. Automated exposure control was utilized for the study. A dose lowering technique was utilized adhering to the principles of ALARA. COMPARISON: Prior head CT from June 05, 2024. FINDINGS: This study is limited secondary to motion artifact. Brain: Unremarkable. No hemorrhage. Moderate nonspecific white matter changes. No edema. Ventricles: Moderate ventriculomegaly. Bones/joints: Unremarkable. No acute fracture. Soft tissues: Unremarkable. Sinuses: Unremarkable as visualized. No acute sinusitis. Mastoid air cells: Unremarkable as visualized. No mastoid effusion. IMPRESSION: No evidence of acute intracranial pathology. Electronically signed by: Pamela Shah MD 08/07/24 23:14 PM
--- NOTE | 2024-08-07 23:24 | History & Physical Report ---
Date of Service August 07, 2024 Assessment & Plan (1) Confusion: (2) CHF (congestive heart failure): (3) Atrial fibrillation: (4) CAD (coronary artery disease): (5) HTN (hypertension): Plan 83yo male with history of AF, CAD, HTN and HLP presenting with several days of progressive confusion. Patient's son is at bedside and provides history. Additional complaints include headache, chills and feeling the need to urinate frequently #Confusion - possible delirium. Uncertain of patient's baseline cognitive status. He has had frequent hospital stays of late as well as a stay in rehab which would certainly predispose him to developing delirium. Possible infection? Patient's WBC count is improving - still with elevated Neutrophil:Lymphocyte suggesting systemic stress. -Will need to obtain additional information from patient's regarding patient's baseline mental state -Check digoxin level, procalcitonin, urine culture, Mg and PO4 levels -Maintain delirium prevention strategies -Consider MRI brain if patient fails to improve -Consider use of Zyprexa should patient become more agitated or confused #CHF -appears to be compensated - Continue home Lasix 20mg po daily -Continue Metoprolol 50mg po BID #Atrial fibrillation - rate controlled -Check digoxin level -Continue digoxin -Continue Metoprolol 50mg po BID -No anticoagulation due to increased risk for falls #Hypokalemia -K=3.2. Will give 40mEq PO x 1 dose -Repeat labs in AM History of Present Illness Chief Complaint: confusion Primary Care Provider: Sole Ibarra MD Lukas Talbert is an 83yo male with history of atrial fibrillation (not on anticoagulation due to falls, recent RPH, possible kidney laceration), HRrEF, CAD, HTN, HLP and prior CVA presenting from home with several days of progressive cognitive decline. Patient's son is visiting from [place] and is present in the room today. He and [id number] provide the history as patient is unable to at this time. Son is not totally certain of patient's baseline mental state. He reports that his father has had some progressive cognitive decline over the last several months but has had sharp decline over the last 3 days. Today patient was more confused, speaking nonsense and was having trouble transitioning from a car to the home. Family reports that patient was also shaking and complaining that he was cold. Reportedly patient had the heat on in his home and the temperature was 85 degrees and he was in a sweatshirt, sweatpants and covering with a blanket. He has also been complaining that he has to urinate. No report of chest pain, cough or SOB. Patient has not eaten or drank anything today because he was unable to handle his silverware. He also did not recognize his family and was speaking nonsense. In the ER patient with elevated temperature 37.6, elevated blood pressure 161/78 ER Course: 1LNSS Allergies Allergy/AdvReac Type Severity Reaction Status Date / Time Cephalosporins Allergy Severe ANAPHYLAXIS Verified 08/07/24 11:16 TO PCN diazepam Allergy Unknown UNKNOWN Verified 08/07/24 11:16 Penicillins Allergy Unknown ANAPHYLAXIS Verified 08/07/24 11:16 simvastatin Allergy Unknown MYALGIA Verified 08/07/24 11:16 shellfish derived Allergy Verified 08/07/24 11:16 codeine AdvReac Mild HEADACHE Verified 08/07/24 11:16 shrimp AdvReac Verified 08/07/24 11:16 Home Medications Medication Instructions Recorded Confirmed Type calcium 600 mg (as 1 tab PO DAILY 12/13/19 08/07/24 History carbonate)-vitamin D3 20 mcg (800 unit) tablet (Caltrate with Vitamin D3) gabapentin 300 mg capsule 300 mg PO BID #60 caps 07/17/24 08/07/24 Rx metoprolol tartrate 50 mg tablet 50 mg PO BID 30 days #60 tabs 07/17/24 08/07/24 Rx acetaminophen 325 mg tablet 975 mg PO TID PRN Pain 08/01/24 08/07/24 History digoxin 125 mcg (0.125 mg) tablet 125 mcg PO DAILY 08/01/24 08/07/24 History docusate sodium 100 mg capsule 100 mg PO BID 08/01/24 08/07/24 History furosemide 20 mg tablet 20 mg PO DAILY 08/01/24 08/07/24 History nitroglycerin 0.4 mg sublingual 0.4 mg sublingual Q5M PRN Chest 08/01/24 08/07/24 History tablet Pain oxycodone 5 mg tablet 2.5 mg PO Q4H PRN Pain 08/01/24 08/07/24 History polyethylene glycol 3350 17 17 g PO DAILY PRN Constipation 08/01/24 08/07/24 History gram/dose oral powder (Miralax) omeprazole 20 mg capsule,delayed 20 mg PO DAILY #90 caps 08/02/24 08/07/24 Rx release sennosides 8.6 mg tablet (senna) 17.2 mg PO AMHS 08/07/24 08/07/24 History Past Med/Surg History Problem List (Updated 08/07/24 @ 23:49 by Celsa Sifuentes DO) Atrial fibrillation Atrial fibrillation with rapid ventricular response (Acute) Confusion (Acute) Rhabdomyolysis (Acute) Elevated procalcitonin (Acute) Supratherapeutic INR (Acute) Elevated troponin (Acute) Fall (Acute) Bradycardia Retroperitoneal hematoma Dehydration Hypotension Rectal bleeding Supratherapeutic INR (Acute) Acute lower gastrointestinal hemorrhage (Acute) Routine health maintenance HFrEF (heart failure with reduced ejection fraction) Encounter for examination following treatment at hospital Acute respiratory failure with hypoxia Acute on chronic systolic CHF (congestive heart failure) Moderate pulmonary hypertension Moderate to severe mitral regurgitation Atrial fibrillation with RVR Elevated CK SOB (shortness of breath) Elevated d-dimer Swelling of both lower extremities Elevated bilirubin Failure to thrive in adult Fall High anion gap metabolic acidosis Leukocytosis High serum lactate Elevated troponin Acute hypokalemia (Acute) Thrombocytopenia (Acute) CHF (congestive heart failure) (Acute) Non-ST elevation CO (NSTEMI) (Acute) Atrial fibrillation with rapid ventricular response (Acute) Excessive cerumen in right ear canal Venous insufficiency Sleep disturbance Change in bowel movement Encounter for pre-operative examination Chest pain Neuropathy Orthostatic hypotension Skin lesion of scalp Constipation Dysequilibrium Scalp abrasion, infected (Acute) 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 Permanent atrial fibrillation (Acute) CAD (coronary artery disease) Cardiomyopathy Carotid artery stenosis, asymptomatic Chest wall pain Dyslipidemia (Chronic) History of stroke without residual deficits Hyperglycemia (Chronic) HTN (hypertension) (Chronic) Spinal stenosis Vitamin D deficiency (Chronic) Impaired fasting glucose Peripheral vascular disease Medical History Abnormal CT scan, colon Surgical History S/P prostatectomy History of tonsillectomy Family History Uncle Colorectal cancer Father Myocardial infarction Grandfather (Paternal) Myocardial infarction Denies family history of Ovarian cancer Prostate cancer Breast cancer Social History Smoking Status: Former smoker Tobacco Type: Smokeless Tobacco (Dip or Chew) Second Hand Exposure: No; Do You Dip or Chew Tobacco: Yes; Hx Alcohol Use: No Hx Substance Use: No Preferred Language: Yakut Communication Ability: Effective Visual Impairment: Limited Hearing Ability: Normal It Communications Manager Required: No Beliefs That Will Affect Care: Advent marital status: Current Living Situation: Spouse current occupational status: retired How many Children do You have: 3 Feels Safe at Home: Yes Childhood Exposure to Second-Hand Smoke: Yes Diet: regular caffeine: Yes (COFFEE) during the past year weight has: increased > 10 lbs Dental Care, Regularly: No Physical Activity Frequency: Does not Exercise Seatbelt Use: always Sunscreen Use: No Do you think of yourself as: straight/heterosexual Sexual Activity: has been sexually active, but not for at least 12 months Gender Identity: Male Assistive Devices: Cane, Walker and Wheelchair Review of Systems Review of Systems: Unobtainable due to cognitive status Physical Exam Physical Exam: General: patient confused, unable to provide history Skin: warm, dry, intact, no rashes or lesions HEENT: NC/AT, PERRL, EOMI, anicteric sclera, conjunctiva without injection, external ear normal to inspection and nontender, nares patent, moist mucus membranes, dentition intact, no oropharyngeal lesions, neck supple, trachea midline, no LAD, no thyromegaly, no JVD Heart: +S1/S2, irregularly irregular, no m/r/g Lungs: equal air entry bilaterally, no rales/rhonchi/wheezes Abd: +BS, soft, NT/ND, no masses/organomegaly/ascites Ext: warm, 2+ pulses in UE/LE bilaterally, no clubbing/cyanosis or edema Neuro: moving all extremities with equal strength Results & Data Results & Data Vital Signs (Past 12 Hours) Vital Signs Temp Pulse Pulse Resp BP BP Pulse Ox 08/07/24 22:30 89 16 161/78 H 95 08/07/24 22:00 92 H 16 137/96 96 08/07/24 21:30 87 16 153/98 H 96 08/07/24 21:00 80 16 135/86 97 08/07/24 20:47 74 18 141/90 H 95 08/07/24 20:04 94 H 18 120/77 95 08/07/24 20:00 37.6 C H 67 20 140/84 95 08/07/24 20:00 98 08/07/24 19:54 82 O2 Del Method 08/07/24 22:30 Room Air 08/07/24 22:00 Room Air 08/07/24 21:30 Room Air 08/07/24 21:00 Room Air 08/07/24 20:47 Room Air 08/07/24 20:04 Room Air 08/07/24 20:00 Room Air 08/07/24 20:00 Room Air 08/07/24 19:54 Laboratory Results Laboratory Results WBC 11.01 K/ul (4.8-10.8) H 08/07/24 20:00 RBC 4.25 M/uL (4.70-6.10) L 08/07/24 20:00 Hgb 13.6 g/dl (14.0-18.0) L 08/07/24 20:00 Hct 39.9 % (42.0-52.0) L 08/07/24 20:00 MCV 93.9 fL (80.0-100.0) 08/07/24 20:00 MCH 32.0 pg (25.0-34.0) 08/07/24 20:00 MCHC 34.1 g/dL (32.0-36.0) 08/07/24 20:00 RDW Std Deviation 43.9 fL (36.4-46.3) 08/07/24 20:00 RDW Coeff of Jean-Paul 12.6 % (11.5-14.5) 08/07/24 20:00 Plt Count 227 K/uL (130-400) 08/07/24 20:00 MPV 9.6 fL (9.4-12.4) 08/07/24 20:00 Immature Gran % (Auto) 0.4 % 08/07/24 20:00 Neut % (Auto) 79.5 % 08/07/24 20:00 Lymph % (Auto) 10.0 % 08/07/24 20:00 [place] % (Auto) 8.4 % 08/07/24 20:00 Eos % (Auto) 1.3 % 08/07/24 20:00 Baso % (Auto) 0.4 % 08/07/24 20:00 Neut # (Auto) 8.76 K/uL (1.40-6.50) H 08/07/24 20:00 Lymph # (Auto) 1.10 K/uL (1.20-3.40) L 08/07/24 20:00 [place] # (Auto) 0.93 K/uL (0.11-0.59) H 08/07/24 20:00 Eos # (Auto) 0.14 K/uL (0.00-0.50) 08/07/24 20:00 Baso # (Auto) 0.04 K/uL (0.00-0.20) 08/07/24 20:00 Immature Gran # (Auto) 0.04 K/uL (0.01-0.20) 08/07/24 20:00 PT 10.4 Seconds (9.0-12.0) 08/07/24 20:00 INR 1.0 (0.9-1.1) 08/07/24 20:00 Sodium 138 mmol/L (136-145) 08/07/24 20:00 Potassium 3.2 mmol/L (3.5-5.1) L 08/07/24 20:00 Chloride 101 mmol/L (98-107) 08/07/24 20:00 Carbon Dioxide 29 mmol/L (21-32) 08/07/24 20:00 Anion Gap 8 (3-11) 08/07/24 20:00 BUN 9 mg/dl (6-23) 08/07/24 20:00 Creatinine 0.69 mg/dl (0.6-1.4) 08/07/24 20:00 Est Cr Clr Drug Dosing 83.8 ml/min 08/07/24 20:00 eGFR 91.82 08/07/24 20:00 BUN/Creatinine Ratio 13.0 (10-20) 08/07/24 20:00 Glucose 120 mg/dl (70-99(Fasting)) H 08/07/24 20:00 Calcium 9.1 mg/dl (8.6-10.3) 08/07/24 20:00 Total Bilirubin 0.6 mg/dl (0.2-1.0) 08/07/24 20:00 AST 23 U/L (13-39) 08/07/24 20:00 ALT 34 U/L (7-52) 08/07/24 20:00 Alkaline Phosphatase 60 U/L (34-104) 08/07/24 20:00 Total Protein 6.9 gm/dl (6.0-8.3) 08/07/24 20:00 Albumin 3.4 gm/dl (3.4-5.0) 08/07/24 20:00 Globulin 3.5 gm/dl (2.5-4.0) 08/07/24 20:00 Albumin/Globulin Ratio 1.0 (0.9-2) 08/07/24 20:00 TSH 1.041 uIu/ml (0.300-4.500) 08/07/24 20:00 Urine Color Yellow 08/07/24 21:04 Urine Appearance Clear (Clear) 08/07/24 21:04 Urine pH 5.5 (4.5-7.5) 08/07/24 21:04 Ur Specific [place] 1.020 (1.000-1.030) 08/07/24 21:04 Urine Protein 2+ (Negative) H 08/07/24 21:04 Urine Glucose (UA) Negative (Negative) 08/07/24 21:04 Urine Ketones Trace (Negative) H 08/07/24 21:04 Urine Blood Negative (Negative) 08/07/24 21:04 Urine Nitrite Negative (Negative) 08/07/24 21:04 Urine Bilirubin Negative (Negative) 08/07/24 21:04 Urine Urobilinogen Positive (Negative) H 08/07/24 21:04 Ur Leukocyte Esterase Negative (Negative) 08/07/24 21:04 Urine WBC (Auto) 0-5 /hpf (0-5) 08/07/24 21:04 Urine RBC (Auto) 0-2 /hpf (0-2) 08/07/24 21:04 U Hyaline Cast (Auto) 0-2 /lpf (0-2) 08/07/24 21:04 U Epithel Cells (Auto) 0-2 /hpf (0-2) 08/07/24 21:04 Urine Bacteria (Auto) None Seen (None Seen) 08/07/24 21:04 Urine Comment 08/07/24 21:04 Impressions Chest X-Ray 08/07/24 20:00 EXAM: Portable AP chest radiograph TECHNIQUE: AP portable radiograph of the chest was obtained. INDICATION: Shortness of breath Comparison: Chest radiograph July 27, 2024 FINDINGS: LINES and TUBES: None CARDIOVASCULAR: Cardiac silhouette is stably enlarged in size. Atherosclerosis of the thoracic aorta. LUNGS/PLEURA: Mild pulmonary vascular congestion is similar to previous. No focal consolidation identified. Bibasilar atelectasis. No significant pleural fluid. No discernible pneumothorax. OSSEOUS/OTHER: No displaced acute osseous process identified. IMPRESSION: Similar congestive changes of the cardiovascular system compared to the previous radiograph. Electronically signed by Damien Coronado 08-07-2024 8:[address] 08/07/24 20:23 Exam(s): CT HEAD Without Contrast EXAM: CT Head Without Intravenous Contrast CLINICAL HISTORY: Reason for exam: confusion, stroke?. TECHNIQUE: Axial computed tomography images of the head/brain without intravenous contrast. CTDI is 114.09 mGy and DLP is 1328.26 mGy-cm. Automated exposure control was utilized for the study. A dose lowering technique was utilized adhering to the principles of ALARA. COMPARISON: Prior head CT from June 05, 2024. FINDINGS: This study is limited secondary to motion artifact. Brain: Unremarkable. No hemorrhage. Moderate nonspecific white matter changes. No edema. Ventricles: Moderate ventriculomegaly. Bones/joints: Unremarkable. No acute fracture. Soft tissues: Unremarkable. Sinuses: Unremarkable as visualized. No acute sinusitis. Mastoid air cells: Unremarkable as visualized. No mastoid effusion. IMPRESSION: No evidence of acute intracranial pathology. Electronically signed by: Pamela Shah MD 08/07/24 23:14 PM PG Care Time/CCT Total # of Minutes Spent Total Time Spent with Patient: Total time spent is greater than 50% in coordination of care (as documented) at patient's floor/unit and/or counseling patient: Coding Level of Care Code 22578 INT INP/OBS CARE 3/75MIN Diagnoses Confusion R41.0 CHF (congestive heart failure) I50.9 Atrial fibrillation I48.91 Coronary artery disease of [place] heart with stable angina pectoris I25.118 Coronary Disease-Associated Artery/Lesion type: [place] artery [place] vs. transplanted heart: [place] heart Associated angina: with stable angina Primary hypertension I10 Hypertension type: primary hypertension (4) CAD (coronary artery disease) Coronary Disease-Associated Artery/Lesion type: [place] artery [place] vs. transplanted heart: [place] heart Associated angina: with stable angina Qualified Code(s): I25.118 - Atherosclerotic heart disease of [place] coronary artery with other forms of angina pectoris (5) HTN (hypertension) Hypertension type: primary hypertension Qualified Code(s): I10 - Essential (primary) hypertension
[2024-08-08] MEDS ORDERED: POLYETHYLENE (MIRALAX) 17 GM PACK PO PRN (00:49)
[2024-08-08] MEDS ORDERED: ACETAMINOPHEN 325 MG TAB PO PRN (00:49)
[2024-08-08 01:12] LABS: Magnesium 1.8 mg/dl (1.7-2.4)
[2024-08-08] MEDS: POTASSIUM CHLORIDE CRTAB 20 MEQ TABCR PO STA ×2 (01:29→09:12)
[2024-08-08 07:09] LABS: Hematocrit (blood only) 36.8 % (42.0-52.0); Hemoglobin 12.3 g/dl (14.0-18.0); Mean Corpuscular Hemoglobin 31.0 pg (25.0-34.0); Mean Corpuscular Volume 92.7 fL (80.0-100.0); Platelet Count 209 K/uL (130-400); RDW Standard Deviation 42.8 fL (36.4-46.3); Red Blood Count 3.97 M/uL (4.70-6.10); White Blood Count 8.82 K/ul (4.8-10.8)
[2024-08-08 07:47] LABS: Alanine Aminotransferase 25.0 U/L (7-52); Alkaline Phosphatase 49.0 U/L (34-104); Anion Gap 6.0 (3-11); Bilirubin,Total 1.1 mg/dl (0.2-1.0); Blood Urea Nitrogen 7.0 mg/dl (6-23); Calcium 8.4 mg/dl (8.6-10.3); Carbon Dioxide 29.0 mmol/L (21-32); Chloride 104.0 mmol/L (98-107); Creatinine Clr Calc Pharmacy 113.3 ml/min; Glucose 134.0 mg/dl (70-99(Fasting)); Potassium 2.9 mmol/L (3.5-5.1); Sodium 139.0 mmol/L (136-145); Total Protein 6.0 gm/dl (6.0-8.3)
[2024-08-08] MEDS: SENNA 8.6 MG TAB PO SCH (09:12)
[2024-08-08] MEDS: DOCUSATE SODIUM 100 MG CAP PO SCH (09:12)
[2024-08-08] MEDS: METOPROLOL TARTRATE 50 MG TAB PO SCH (09:12)
[2024-08-08] MEDS: GABAPENTIN 300 MG CAP PO SCH (09:12)
[2024-08-08] MEDS: FUROSEMIDE 20 MG TAB PO SCH (09:50)
--- NOTE | 2024-08-08 15:42 | Electrocardiogram Report ---
Test Reason : Blood Pressure : */* mmHG Vent. Rate : 81 BPM Atrial Rate : * BPM P-R Int : * ms QRS Dur : 76 ms QT Int : 374 ms P-R-T Axes : * 10 29 degrees QTcB Int : 434 ms Atrial fibrillation with premature ventricular or aberrantly conducted complexes and with ventricular escape complexes Abnormal ECG When compared with ECG of 27-Jul-2024 19:05, Atrial fibrillation is now with ventricular escape complexes Nonspecific T wave abnormality no longer evident in Lateral leads Confirmed by Jesse Hurtado ([id number]) on 08/08/2024 3:42:37 PM Referred By: REFERRED SELF Confirmed By: Jesse Hurtado
--- NOTE | 2024-08-08 16:54 | Hospitalist Progress Note ---
Date of Service August 08, 2024 Assessment & Plan (1) Confusion: (2) CHF (congestive heart failure): (3) Atrial fibrillation: (4) CAD (coronary artery disease): (5) HTN (hypertension): Plan 83yo male with history of AF, CAD, HTN and HLP presenting with several days of progressive confusion. Patient's son is at bedside and provides history. Additional complaints include headache, chills and feeling the need to urinate frequently #Confusion - possible delirium. Uncertain of patient's baseline cognitive status. He has had frequent hospital stays of late as well as a stay in rehab which would certainly predispose him to developing delirium. Possible infection? Patient's WBC count is improving -still with elevated Neutrophil:Lymphocyte suggesting systemic stress. -Will need to obtain additional information from patient's regarding charito roblero's baseline mental state -Check digoxin level, procalcitonin, urine culture, Mg and PO4 levels -Maintain delirium prevention strategies -Consider MRI brain if patient fails to improve; status seems like worsening dementia rather -Consider use of Zyprexa should patient become more agitated or confused -Patient's family does not want patient to return home while he is acutely agitated and confused; patient potentially will need memory care unit placement. #CHF -appears to be compensated - Continue home Lasix 20mg po daily -Continue Metoprolol 50mg po BID #Atrial fibrillation - rate controlled -Digoxin level: 0.6, mildly decreased -Continue digoxin -Continue Metoprolol 50mg po BID -No anticoagulation due to increased risk for falls #Hypokalemia - K:3.2. Will give 40mEq PO x 1 dose - repeat K: 2.9, additional 60meq - repeat labs in AM Admission and Anticipated Discharge Date Admission Date: August 07, 2024 Supervising Physician Co-Signing Physician Notes I personally examined the patient and verified mcbride points of history and exam, discussed case, and agree with decision making and plan documented by Dr. Espinoza. Patient is a 83-year-old male with past medical history of HFrEF, cardiomyopathy, CAD, hypertension, hyperlipidemia atrial fibrillation, pulmonary hypertension, PVD, history of GIB, and prostate carcinoma on admission for unwitnessed fall and worsening confusion. Patient is a poor historian, he was able to answer yes/no questions, kept his eyes closed during examination today. On exam patient appears elderly, non-labored breathing, lungs clear to auscultation bilaterally, no rales/rhonchi/wheezing, heart with irregularly irregular rhythm, bowel sounds present and no tenderness in the abdomen, lower extremities without edema. Per chart review, anticoagulation for afib discontinued due to recent trauma and risk for bleeding due to falls. Will check MRI brain. Subjective Patient is seen this AM and is confused. Patient is unable to speak in clear or coherent sentences, and is unable to answer most questions when asked. Patient is able to report his full name and date of but is unable to note the current month or his current location. Patient is able to obey basic commands and is responsive to touch and pain but while evaluating his eyes are closed and he speaks unintelligible speech from time to time. Patient's is called who reports that patient's baseline has been worsening for the past month and report that patient has been more belligerent with confusion and difficulty identifying family members. Son and daughter-in law were visiting from [place] and were very concerned with fathers behaviors. Patient was brought in when he was found on the floor and was unable to get up. Today, patient is afebrile and hemodynamically stable. Physical Exam Physical Exam: General: patient resting comfortably, NAD, non-toxic in appearance, answers questions appropriately. Skin: warm, dry, intact HEENT: NC/AT, anicteric sclera, conjunctiva without injection, moist mucus membranes. Heart: +S1/S2, regular, no m/r/g Lungs: equal air entry bilaterally, no rales/rhonchi/wheezes Abd: +BS, soft, NT/ND Ext: warm, no clubbing/cyanosis or edema Neuro: nonfocal, speech intact, no facial droop, moving all extremities. Results & Data Results & Data Vital Signs (Past 12 Hours) Vital Signs Temp Pulse Resp BP Pulse Ox O2 Del Method 08/08/24 15:48 36.3 C L 70 16 119/76 96 Room Air 08/08/24 09:30 Room Air 08/08/24 07:03 36.4 C L 94 H 16 154/89 H 94 Room Air Resident Activity Tracking Resident Involvement: Resident Care Provided Care Provided: Adult Hospital Medicine (4) CAD (coronary artery disease) Associated angina: with stable angina Coronary Disease-Associated Artery/Lesion type: [place] artery [place] vs. transplanted heart: [place] heart Qualified Code(s): I25.118 - Atherosclerotic heart disease of [place] coronary artery with other forms of angina pectoris (5) HTN (hypertension) Hypertension type: primary hypertension Qualified Code(s): I10 - Essential (primary) hypertension
[2024-08-08] MEDS: DIGOXIN 0.125 MG TAB PO SCH (17:25)
--- NOTE | 2024-08-09 00:17 | Magnetic Resonance Report ---
Exam(s): MRI HEAD Without Contrast EXAM: MR Head Without Intravenous Contrast CLINICAL HISTORY: Altered mental status. TECHNIQUE: Magnetic resonance images of the head/brain without intravenous contrast in multiple planes. COMPARISON: CT head performed 08/07/2024 and MRI head 03/18/2010 FINDINGS: Artifacts: There is extensive motion artifact which degrades image quality on several image slices. Brain: Abnormal areas of diffusion restriction noted throughout the left parieto-occipital region and involving the anterior left temporal region. No intracranial hemorrhage. No significant mass effect. Ventricles: No midline shift or effacement of the ventricles. Bones/joints: Unremarkable. No acute fracture. Sinuses: Unremarkable as visualized. No acute sinusitis. Mastoid air cells: Scattered mastoid effusions noted bilaterally, right side greater than left. Orbits: Unremarkable as visualized. IMPRESSION: Abnormal areas of diffusion restriction noted throughout the left parieto-occipital region and involving the anterior left temporal region. Findings are consistent with an evolving acute to subacute ischemic process. No evidence for hemorrhagic transformation. No significant mass effect. Communications: Call Doctor Stroke Electronically signed by: Carlos Castillo MD 08/09/24 00:16 AM
[2024-08-09] MEDS: ASPIRIN 81 MG CHEW PO SCH (01:53)
[2024-08-09] MEDS: CLOPIDOGREL BISULFATE 75 MG TAB PO SCH (01:53)
[2024-08-09] MEDS: CLOPIDOGREL BISULFATE 300 MG TAB PO STA (02:09)
[2024-08-09 06:47] LABS: Hematocrit (blood only) 37.8 % (42.0-52.0); Hemoglobin 13.0 g/dl (14.0-18.0); Immature Granulocytes # (auto) 0.05 K/uL (0.01-0.20); Immature Granulocytes % (auto) 0.4 %; Mean Corpuscular Hemoglobin 31.9 pg (25.0-34.0); Mean Corpuscular Volume 92.6 fL (80.0-100.0); Platelet Count 227 K/uL (130-400); RDW Standard Deviation 42.7 fL (36.4-46.3); Red Blood Count 4.08 M/uL (4.70-6.10); White Blood Count 11.14 K/ul (4.8-10.8)
[2024-08-09 07:03] LABS: Anion Gap 7.0 (3-11); Blood Urea Nitrogen 7.0 mg/dl (6-23); Calcium 8.7 mg/dl (8.6-10.3); Carbon Dioxide 29.0 mmol/L (21-32); Chloride 101.0 mmol/L (98-107); Creatinine Clr Calc Pharmacy 96.3 ml/min; Glucose 126.0 mg/dl (70-99(Fasting)); Potassium 3.4 mmol/L (3.5-5.1); Sodium 137.0 mmol/L (136-145)
[2024-08-09] MEDS: POTASSIUM CHLORIDE CRTAB 20 MEQ TABCR PO STA (08:10)
[2024-08-09] MEDS: ROSUVASTATIN CALCIUM 20 MG TAB PO SCH (08:12)
--- NOTE | 2024-08-09 12:35 | Hospitalist Progress Note ---
Date of Service August 09, 2024 Assessment & Plan (1) Confusion: (2) CHF (congestive heart failure): (3) Atrial fibrillation: (4) CAD (coronary artery disease): (5) HTN (hypertension): Plan 83yo male with history of AF, CAD, HTN and HLP presenting with several days of progressive confusion. Patient's son is at bedside and provides history. Additional complaints include headache, chills and feeling the need to urinate frequently #Confusion - -MRI brain + for L side temporoparietal stroke. Started on ASA, Plavix, statin -Appears baseline cognitive status has declined over some time with acute decline over the last week -At high risk for hospital delirium Employ Delirium Prevention Measures including: Raising blinds during the day, closing at night Frequent re-orientation Contact with family/friends Explaining procedures/nursing care measures prior to physical contact Correct any hearing and visual impairments -Consider use of Zyprexa should patient become more agitated or confused -Will need clarify goals of care given risk of bleed vs risk of further ischemic events -Patient's family does not want patient to return home while he is acutely agitated and confused; patient potentially will need memory care unit placement. #CHF -appears to be compensated - Continue home Lasix 20mg po daily -Continue Metoprolol 50mg po BID #Atrial fibrillation - rate controlled -Digoxin level: 0.6, mildly decreased -Continue digoxin -Continue Metoprolol 50mg po BID -No anticoagulation due to increased risk for falls, recent trauma/renal laceration #Hypokalemia - replete as indicated - Follow BMP Admission and Anticipated Discharge Date Admission Date: August 07, 2024 Supervising Physician Co-Signing Physician Notes I personally examined the patient and verified mcbride points of history and exam, discussed case, and agree with decision making and plan documented by Dr. Espinoza. Patient is a 83-year-old male with past medical history of HFrEF, cardiomyopathy, CAD, hypertension, hyperlipidemia atrial fibrillation, pulmonary hypertension, PVD, history of GIB, and prostate carcinoma on admission for unwitnessed fall and worsening confusion. Reviewed MRI brain with CVA with family. Family setting up care home care at [facility]. Subjective Patient seen and evaluated at bedside this morning. History and ROS limited this am. Patient awake but does not participate in questioning. Results of MRI ordered yesterday show acute to subacute evolving ischemia in the L temporo- parietal region. ASA, Plavix, statin started by overnight resident. Will reach out to family to clarify goals of care going forward as patient is high risk for antiplatelet/anticoagulation in the setting of recent trauma/renal laceration. Also at high risk of recurrent stroke if antiplatelets are held due to chronic afib. Review of Systems Review of Systems: reviewed, per HPI Physical Exam Physical Exam: Constitutional: chronically ill-appearing, no acute distress HEENT: NCAT, no conjunctival injection CV: irregular rhythm, tachycardia, extremities well-perfused, no LE edema Resp: no increased work of breathing GI: nondistended MSK: no gross deformities appreciated Skin: warm, dry, no rash appreciated Neuro: alert, oriented, no focal neurologic deficit appreciated Results & Data Results & Data Vital Signs (Past 12 Hours) Vital Signs Temp Pulse Resp BP Pulse Ox O2 Del Method 08/09/24 07:48 Room Air 08/09/24 07:00 36.5 C 92 H 16 139/83 96 Room Air 08/09/24 00:38 37.0 C 105 H 16 151/82 H 96 Room Air Resident Activity Tracking Resident Involvement: Resident Care Provided Care Provided: Adult Hospital Medicine (4) CAD (coronary artery disease) Associated angina: with stable angina Coronary Disease-Associated Artery/Lesion type: [place] artery [place] vs. transplanted heart: [place] heart Qualified Code(s): I25.118 - Atherosclerotic heart disease of [place] coronary artery with other forms of angina pectoris (5) HTN (hypertension) Hypertension type: primary hypertension Qualified Code(s): I10 - Essential (primary) hypertension
[2024-08-09] MEDS: LACTATED RINGER'S 1,000 ML IV SCH (18:39)
[2024-08-10 07:00] LABS: Hematocrit (blood only) 40.7 % (42.0-52.0); Hemoglobin 13.9 g/dl (14.0-18.0); Immature Granulocytes # (auto) 0.06 K/uL (0.01-0.20); Immature Granulocytes % (auto) 0.5 %; Mean Corpuscular Hemoglobin 31.9 pg (25.0-34.0); Mean Corpuscular Volume 93.3 fL (80.0-100.0); Platelet Count 259 K/uL (130-400); RDW Standard Deviation 42.9 fL (36.4-46.3); Red Blood Count 4.36 M/uL (4.70-6.10); White Blood Count 13.17 K/ul (4.8-10.8)
[2024-08-10 07:21] LABS: Anion Gap 9.0 (3-11); Blood Urea Nitrogen 10.0 mg/dl (6-23); Calcium 8.8 mg/dl (8.6-10.3); Carbon Dioxide 28.0 mmol/L (21-32); Chloride 102.0 mmol/L (98-107); Creatinine Clr Calc Pharmacy 87.6 ml/min; Glucose 133.0 mg/dl (70-99(Fasting)); Potassium 3.9 mmol/L (3.5-5.1); Sodium 139.0 mmol/L (136-145)
--- NOTE | 2024-08-10 09:02 | Hospitalist Progress Note ---
Date of Service August 10, 2024 Assessment & Plan (1) Confusion: (2) CHF (congestive heart failure): (3) Atrial fibrillation: (4) CAD (coronary artery disease): (5) HTN (hypertension): Plan 83yo male with history of AF, CAD, HTN and HLP presenting with several days of progressive confusion. Patient's son is at bedside and provides history. Additional complaints include headache, chills and feeling the need to urinate frequently #Confusion/CVA -MRI brain + for L side temporoparietal stroke. Started on ASA, Plavix, statin -Appears baseline cognitive status has declined over some time with acute decline over the last week -At high risk for hospital delirium Employ Delirium Prevention Measures including: Raising blinds during the day, closing at night Frequent re-orientation Contact with family/friends Explaining procedures/nursing care measures prior to physical contact Correct any hearing and visual impairments -Consider use of Zyprexa should patient become more agitated or confused -Discussed with family risk/benefit of continued antiplatelet therapy re: bleed vs risk of further ischemic events -Patient's family has started process of having patient placed in 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 care at [facility] at the time of discharge pending bed availability and medical stability #CHF -appears to be compensated - Continue home Lasix 20mg po daily -Continue Metoprolol 50mg po BID #Atrial fibrillation - rate controlled -Tachycardic this am - given small LR bolus and increased maintenance rate due to poor PO intake -Digoxin level: 0.6, mildly decreased -Continue digoxin -Continue Metoprolol 50mg po BID -No anticoagulation due to increased risk for falls, recent trauma/renal laceration #Hypokalemia - replete as indicated - Follow BMP Admission and Anticipated Discharge Date Admission Date: August 07, 2024 Supervising Physician Co-Signing Physician Notes I personally examined the patient and verified mcbride points of history and exam, discussed case, and agree with decision making and plan documented by Dr. Perales. Patient is a 83-year-old male with past medical history of HFrEF, cardiomyopathy, CAD, CVA, hypertension, hyperlipidemia atrial fibrillation, pulmonary hypertension, PVD, history of GIB, and prostate carcinoma on admission for unwitnessed fall and worsening confusion. MRI brain with acute/subacute left parieto-occipital and anterior left temporal region. Patient with improved mentation today on exam today, oriented to person/place, denies pain or concerns. PT/OT recommending SNF. Family setting up residential care at [facility]. CM placed referrals. Subjective Patient seen and evaluated at bedside this morning. No acute events overnight. Patient much more alert this morning. Oriented only to self. Able to state that he does not have any pain. Pt with tachycardia this am. Reoriented patient to location and time. Explained to pt that he was here and found to have a stroke. Review of Systems Review of Systems: reviewed, per HPI Physical Exam Physical Exam: Constitutional: chronically ill-appearing, no acute distress HEENT: NCAT, no conjunctival injection CV: irregular rhythm, tachycardia, extremities well-perfused, no LE edema Resp: no increased work of breathing GI: nondistended MSK: no gross deformities appreciated Skin: warm, dry, no rash appreciated Neuro: awake, oriented to self only Results & Data Results & Data Vital Signs (Past 12 Hours) Vital Signs Temp Pulse Resp BP Pulse Ox O2 Del Method 08/10/24 07:17 Room Air 08/10/24 06:52 36.3 C L 120 H 18 151/84 H 95 Room Air Resident Activity Tracking Resident Involvement: Resident Care Provided Care Provided: Adult Hospital Medicine (4) CAD (coronary artery disease) Associated angina: with stable angina Coronary Disease-Associated Artery/Lesion type: [place] artery [place] vs. transplanted heart: [place] heart Qualified Code(s): I25.118 - Atherosclerotic heart disease of [place] coronary artery with other forms of angina pectoris (5) HTN (hypertension) Hypertension type: primary hypertension Qualified Code(s): I10 - Essential (primary) hypertension
[2024-08-10] MEDS: LACTATED RINGER'S 250 ML IV ONE (10:23)
[2024-08-10] MEDS: LACTATED RINGER'S 1,000 ML IV SCH (10:38)
[2024-08-11 06:42] LABS: Hematocrit (blood only) 37.6 % (42.0-52.0); Hemoglobin 13.1 g/dl (14.0-18.0); Immature Granulocytes # (auto) 0.07 K/uL (0.01-0.20); Immature Granulocytes % (auto) 0.7 %; Mean Corpuscular Hemoglobin 31.8 pg (25.0-34.0); Mean Corpuscular Volume 91.3 fL (80.0-100.0); Platelet Count 235 K/uL (130-400); RDW Standard Deviation 40.9 fL (36.4-46.3); Red Blood Count 4.12 M/uL (4.70-6.10); White Blood Count 10.44 K/ul (4.8-10.8)
[2024-08-11 07:02] LABS: Anion Gap 8.0 (3-11); Blood Urea Nitrogen 11.0 mg/dl (6-23); Calcium 8.6 mg/dl (8.6-10.3); Carbon Dioxide 26.0 mmol/L (21-32); Chloride 97.0 mmol/L (98-107); Creatinine Clr Calc Pharmacy 103.2 ml/min; Glucose 107.0 mg/dl (70-99(Fasting)); Potassium 3.5 mmol/L (3.5-5.1); Sodium 131.0 mmol/L (136-145)
--- NOTE | 2024-08-11 08:45 | Hospitalist Progress Note ---
Date of Service August 11, 2024 Assessment & Plan (1) Confusion: (2) CHF (congestive heart failure): (3) Atrial fibrillation: (4) CAD (coronary artery disease): (5) HTN (hypertension): Plan 83yo male with history of AF, CAD, HTN and HLP presenting with several days of progressive confusion. Patient's son is at bedside and provides history. Additional complaints include headache, chills and feeling the need to urinate frequently #Confusion/CVA -MRI brain + for L side temporoparietal stroke. Started on ASA, Plavix, statin -Appears baseline cognitive status has declined over some time with acute decline over the last week -At high risk for hospital delirium Employ Delirium Prevention Measures including: Raising blinds during the day, closing at night Frequent re-orientation Contact with family/friends Explaining procedures/nursing care measures prior to physical contact Correct any hearing and visual impairments -Consider use of Zyprexa should patient become more agitated or confused -Discussed with family risk/benefit of continued antiplatelet therapy re: bleed vs risk of further ischemic events -Patient's family has started process of having patient placed in 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 marine oil terminal care at [facility] at the time of discharge pending bed availability and medical stability #Fever -With increased tachycardia -CXR suggestive of L PNA vs atelectasis -Procal negative -BCx drawn - follow -?aspiration PNA vs pneumonitis - speech and nutrition consults placed -Will start Levaquin empirically (pt has anaphylaxis to penicillins) #CHF -appears to be compensated - Continue home Lasix 20mg po daily -Continue Metoprolol 50mg po BID #Atrial fibrillation - rate controlled -Tachycardic this am - given small LR bolus and increased maintenance rate due to poor PO intake -Digoxin level: 0.6, mildly decreased -Continue digoxin -Continue Metoprolol 50mg po BID -No anticoagulation due to increased risk for falls, recent trauma/renal laceration #Hypokalemia - replete as indicated - Follow BMP Admission and Anticipated Discharge Date Admission Date: August 07, 2024 Supervising Physician Co-Signing Physician Notes I personally examined the patient and verified mcbride points of history and exam, discussed case, and agree with decision making and plan documented by Dr. Perales. Patient is a 83-year-old male with past medical history of HFrEF, cardiomyopathy, CAD, CVA, hypertension, hyperlipidemia atrial fibrillation, pulmonary hypertension, PVD, history of GIB, and prostate carcinoma on admission for unwitnessed fall and worsening confusion. MRI brain with acute/subacute left parieto-occipital and anterior left temporal region. Patient febrile today, portable chest x-ray with cardiomegaly, trace pleural effusions and mild left basilar opacities representing atelectasis or pneumonia. Cultures obtained for urine and blood. Patient started on Levaquin for concern of possible aspiration. Improvement of tachycardia with small bolus LR, monitor volume status closely, patient is on diuretics chronically and has reduced p.o. intake. On aspiration precaution. PSYCHOLOGY FELLOW evaluated and recommended full speech and language evaluation as well as dysphagia treatment to advance diet as indicated. Nutrition consulted, easy to diet ordered, additional shake with lunch recommended.PT/OT recommending SNF. 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 CM placed referrals. Subjective Patient seen and evaluated at bedside this morning. No acute events overnight. Less interactive this morning. He is febrile, with increased tachycardia in the setting of afib. BMP with developing hyponatremia. Review of Systems Review of Systems: reviewed, per HPI Physical Exam Physical Exam: Constitutional: chronically ill-appearing, no acute distress HEENT: NCAT, no conjunctival injection CV: irregular rhythm, tachycardia, extremities well-perfused, no LE edema Resp: no increased work of breathing GI: nondistended MSK: no gross deformities appreciated Skin: warm, dry, no rash appreciated Neuro: awake, oriented to self only Results & Data Results & Data Vital Signs (Past 12 Hours) Vital Signs Temp Pulse Resp BP Pulse Ox O2 Del Method 08/11/24 07:06 Room Air 08/11/24 07:00 38.0 C H 150 H 16 140/75 91 Room Air Resident Activity Tracking Resident Involvement: Resident Care Provided Care Provided: Adult Hospital Medicine (4) CAD (coronary artery disease) Associated angina: with stable angina Coronary Disease-Associated Artery/L esion type: [place] artery [place] vs. transplanted heart: [place] heart Qualified Code(s): I25.118 - Atherosclerotic heart disease of [place] coronary artery with other forms of angina pectoris (5) HTN (hypertension) Hypertension type: primary hypertension Qualified Code(s): I10 - Essential (primary) hypertension
--- NOTE | 2024-08-11 09:41 | XRay Report ---
XR chest 1V portable HISTORY: 83 years-old Male fever, cough COMPARISON: 08/07/2024 TECHNIQUE: AP view of the chest FINDINGS: Cardiac silhouette is enlarged. Pulmonary vascular congestion with interstitial coarsening. Trace ple ural effusions with mild ill-defined left basilar predominant densities. Bones appear grossly intact. IMPRESSION: 1. Cardiomegaly with suggestion of mild interstitial pulmonary edema. 2. Probable trace pleural effusions with mild left basilar opacities suggestive of atelectasis versus pneumonia. ACT 112: Negative or not required by law. The above report was generated using voice recognition software. It may contain grammatical, syntax o r spelling errors. Electronically signed by: Ned Blackwell M.D. 08/11/2024 9:40 AM
[2024-08-11] MEDS: LACTATED RINGER'S 250 ML IV ONE (09:45)
[2024-08-11 13:41] LABS: Appearance Urine Clear (Clear); Bacteria Urine Automated None Seen (None Seen); Cast Urine Automated 0-2 /lpf (0-2); Epithelial Cell Urine Auto 0-2 /hpf (0-2); Glucose Urine UA Negative (Negative); RBC Urine Automated 0-2 /hpf (0-2); WBC Urine Automated 0-5 /hpf (0-5)
[2024-08-11 20:08] VITALS: O2SAT 94
[2024-08-12 06:49] LABS: Hematocrit (blood only) 37.4 % (42.0-52.0); Hemoglobin 12.9 g/dl (14.0-18.0); Immature Granulocytes # (auto) 0.04 K/uL (0.01-0.20); Immature Granulocytes % (auto) 0.5 %; Mean Corpuscular Hemoglobin 31.3 pg (25.0-34.0); Mean Corpuscular Volume 90.8 fL (80.0-100.0); Platelet Count 229 K/uL (130-400); RDW Standard Deviation 40.9 fL (36.4-46.3); Red Blood Count 4.12 M/uL (4.70-6.10); White Blood Count 7.71 K/ul (4.8-10.8)
[2024-08-12 07:12] LABS: Anion Gap 8.0 (3-11); Blood Urea Nitrogen 12.0 mg/dl (6-23); Calcium 8.4 mg/dl (8.6-10.3); Carbon Dioxide 26.0 mmol/L (21-32); Chloride 99.0 mmol/L (98-107); Creatinine Clr Calc Pharmacy 99.6 ml/min; Glucose 106.0 mg/dl (70-99(Fasting)); Potassium 3.4 mmol/L (3.5-5.1); Sodium 133.0 mmol/L (136-145)
--- NOTE | 2024-08-12 07:47 | Hospitalist Progress Note ---
Date of Service August 12, 2024 Assessment & Plan (1) Confusion: (2) CHF (congestive heart failure): (3) Atrial fibrillation: (4) CAD (coronary artery disease): (5) HTN (hypertension): Plan Patient is a 83yo male with history of A-fib, CAD, HTN and HLP presenting with several days of progressive confusion. Patient's son at bedside and contributed to initial history. Additional complaints include headache, chills and increased urinary frequency. He appears at baseline cognitive function and overall medically stable for discharge to [facility]. #Confusion/CVA -MRI brain +ve for L side temporoparietal stroke. Started on ASA, Plavix, statin -Appears baseline cognitive status has declined over some time, with acute worsening over the last week -At high risk for hospital delirium. 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 CXR showed L basilar predominant densities suggestive of PNA vs atelectasis. Procal negative. BCx drawn - follow - Pt was started on empiric Levaquin d/t anaphylactic allergy to penicillins. Plan for 750mg q24h for at least 5 total days - Speech and nutrition consults placed - Currently afebrile, vitals stable within normal range, no leukocytosis #CHF - appears to be compensated - Continue home Lasix 20mg po daily - Continue Metoprolol 50mg po BID #Atrial fibrillation - rate controlled -Tachycardic this am - given small LR bolus and increased maintenance rate due to poor PO intake -Digoxin level: 0.6, mildly decreased -Continue digoxin -Continue Metoprolol 50mg po BID -No anticoagulation due to increased risk for falls, recent trauma/renal laceration #Hypokalemia - replete as indicated - Follow BMP Admission and Anticipated Discharge Date Admission Date: August 07, 2024 Supervising Physician Co-Signing Physician Notes I personally examined the patient and verified all mcbride points of history and exam, discussed case, and agree with decision making with Dr Arredondo No overt complaints. Notes that he feels around his current baseline. Does note maybe a little bit of abdominal pain on directed questioninghe thinks probably it relates mostly to what he has been feeling since admission at [facility] prior admission, although he also notes he may not be having that regular of bowel movements. Vitals noted, right-sided weakness noted. Abdomen mildly distended nontender no guarding rebound or rigidity. CVAgiven the appearance in the left parieto-occipital as well as anterior left temporal, I would suspect something emboliceither carotid or cardioembolic. At the same time, he is already on dual antiplatelets and statin, and anticoagulation in the short-term at least, is relatively strongly contraindicated given his recent retroperitoneal bleed. His overall risk/benefit will be very nuancedas, over time, if the bleeding stabilizes and he is improving, anticoagulation might be warranted in the intermediate future to protect him from further strokes from atrial fibrillationand he had at the same time, if he has a tight carotid, that could be the culprit for his stroke making the risk/benefit for resuming anticoagulation even more delicate. Tolerating antiplatelets for now. Check carotid Doppler to allow for a more complete discussion with patient/ family. dispo - SNF hopefully tomorrow Subjective NAEO. Patient seen and examined at bedside this morning. Not very lucid, no meaningful history. Does deny having any pain. AFVSS. Review of Systems Review of Systems: reviewed, per HPI Physical Exam Physical Exam: Constitutional: chronically ill-appearing, NAD HEENT: NCAT, no conjunctival injection, MMM CV: RRR, extremities well-perfused, no LE edema Resp: no increased work of breathing GI: soft, nontender, nondistended MSK: no gross deformities appreciated Skin: warm, dry, no rash appreciated Neuro: awake, drowsy, only oriented to person Results & Data Results & Data Vital Signs (Past 12 Hours) Vital Signs Temp Pulse Resp BP BP Pulse Ox O2 Del Method 08/12/24 06:56 36.9 C 64 16 142/84 H 94 Room Air 08/11/24 20:06 37.5 C 65 16 130/73 94 Room Air 08/11/24 20:00 Room Air Resident Activity Tracking Resident Involvement: Resident Care Provided Care Provided: Adult Hospital Medicine (4) CAD (coronary artery disease) Associated angina: with stable angina Coronary Disease-Associated Artery/Lesion type: [place] artery [place] vs. transplanted heart: [place] heart Qualified Code(s): I25.118 - Atherosclerotic heart disease of [place] coronary artery with other forms of angina pectoris (5) HTN (hypertension) Hypertension type: primary hypertension Qualified Code(s): I10 - Essential (primary) hypertension
[2024-08-12] MEDS: POTASSIUM CHLORIDE CRTAB 20 MEQ TABCR PO STA (10:13)
--- NOTE | 2024-08-12 17:41 | Billing Data ---
Date of Service August 12, 2024 Coding Level of Care Code 64720 SUB INP/OBS CARE MIN
--- NOTE | 2024-08-12 17:46 | Billing Data ---
Date of Service August 12, 2024 Coding Level of Care Code 56597 SUB INP/OBS CARE MIN
[2024-08-12] MEDS: POLYETHYLENE (MIRALAX) 17 GM PACK PO SCH (18:30)
[2024-08-12 19:42] VITALS: TEMP 98.4
--- NOTE | 2024-08-12 23:54 | Ultrasound Report ---
Exam(s): US CAROTID EXAM: US Duplex Bilateral Extracranial Arteries CLINICAL HISTORY: CVA. TECHNIQUE: Real-time duplex ultrasound scan of the extracranial arteries integrating B-mode two-dimensional vascular structure, Doppler spectral analysis and color flow Doppler imaging. COMPARISON: No relevant prior studies available. FINDINGS: Limitations: The examination is reportedly limited by patient's inability to immobilize/cooperate with the procedure. Right common carotid artery: Intimal hyperplasia. No occlusion or significant stenosis on color flow and spectral Doppler imaging. Peak systolic velocity in the right common carotid artery (CCA) is 72 cm/s. Right internal carotid artery: Right ICA appears occluded. Right external carotid artery: Unremarkable. No occlusion or significant stenosis on color flow and spectral Doppler imaging. Peak systolic velocity in the right external carotid artery (ECA) is 71 cm/s. Right vertebral artery: Unremarkable. Peak systolic velocity in the right vertebral artery is 23 cm/s. Antegrade flow. Right ICA/CCA ratio: N/A Left common carotid artery: Intimal hyperplasia. No occlusion or significant stenosis on color flow and spectral Doppler imaging. Peak systolic velocity in the left common carotid artery (CCA) is 101 cm/s. Left internal carotid artery: Partially calcified plaque involving the bifurcation. No occlusion or significant stenosis on color flow and spectral Doppler imaging. Peak systolic velocity in the left internal carotid artery (ICA) is 120 cm/s. Left external carotid artery: Unremarkable. No occlusion or significant stenosis on color flow and spectral Doppler imaging. Peak systolic velocity in the left external carotid artery (ECA) is 131 cm/s. Left vertebral artery: Unremarkable. Peak systolic velocity in the left vertebral artery is 45 cm/s. Antegrade flow. Left ICA/CCA ratio: 1.2. Lymph nodes: Unremarkable. No lymphadenopathy. CAROTID STENOSIS REFERENCE USING IAC CRITERIA: Mild - <50% stenosis. ICA PSV is less than 180 cm/s and plaque or intimal thickening is visible. Moderate - 50-69% stenosis. ICA PSV is 180 to 230 cm/s and plaque is visible. Severe - 70-94% stenosis. ICA PSV is more than 230 cm/s and visible plaque with lumen narrowing is seen. Near occlusion - 95-99% stenosis. ICA PSV is variable and significant plaque with luminal narrowing is seen. Occluded - 100% stenosis. No flow identified. IMPRESSION: 1. 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 The right common carotid artery is patent. 2. The left common carotid and internal carotid artery are patent. Atheromatous disease. No significant hemodynamic stenosis. 3. The vertebral arteries are patent with antegrade flow noted bilaterally. Electronically signed by: Carlos Castillo MD 08/12/24 23:53 PM
--- NOTE | 2024-08-13 06:50 | Discharge Summary ---
Date of Service August 13, 2024 Admission HPI Per Admitting Provider Lukas Talbert is an 83yo male with history of atrial fibrillation (not on anticoagulation due to falls, recent RPH, possible kidney laceration), HRrEF, CAD, HTN, HLP and prior CVA presenting from home with several days of pro gressive cognitive decline. Patient's son is visiting from [place] and is present in the room today. He and [id number] provide the history as patient is unable to at this time. Son is not totally certain of patient's baseline mental state. He reports that his father has had some progressive cognitive decline over the last several months but has had sharp decline over the last 3 days. Today patient was more confused, speaking nonsense and was having trouble transitioning from a car to the home. Family reports that patient was also shaking and complaining that he was cold. Reportedly patient had the heat on in his home and the temperature was 85 degrees and he was in a sweatshirt, sweatpants and covering with a blanket. He has also been complaining that he has to urinate. No report of chest pain, cough or SOB. Patient has not eaten or drank anything today because he was unable to handle his silverware. He also did not recognize his family and was speaking nonsense. In the ER patient with elevated temperature 37.6, elevated blood pressure 161/78 ER Course: 1LNSS Principal Diagnosis See attending documentation Discharge Exam Constitutional: chronically ill-appearing, NAD HEENT: NCAT, no conjunctival injection, MMM CV: RRR, extremities well-perfused, no LE edema Resp: no increased work of breathing GI: soft, nontender, nondistended MSK: no gross deformities appreciated Skin: warm, dry, no rash appreciated Neuro: awake, drowsy, only oriented to person Discharge Data Allergies Allergy/AdvReac Type Severity Reaction Status Date / Time Cephalosporins Allergy Severe ANAPHYLAXIS Verified 08/07/24 11:16 TO PCN diazepam Allergy Unknown UNKNOWN Verified 08/07/24 11:16 Penicillins Allergy Unknown ANAPHYLAXIS Verified 08/07/24 11:16 simvastatin Allergy Unknown MYALGIA Verified 08/07/24 11:16 shellfish derived Allergy Verified 08/07/24 11:16 codeine AdvReac Mild HEADACHE Verified 08/07/24 11:16 shrimp AdvReac Verified 08/07/24 11:16 Consultations 08/07/24 23:34 ED Decision to Admit Stat Ordered Studies 08/07/24 20:23 CT head/brain wo con Stat 08/08/24 17:37 MR brain wo con Routine 08/12/24 17:46 Carotid duplex [US carotid doppler BI] Routine Hospital Course (1) Confusion: (2) CHF (congestive heart failure): (3) Atrial fibrillation: (4) CAD (coronary artery disease): (5) HTN (hypertension): Plan Patient is a 83yo male with history of A-fib, CAD, HTN and HLP who presented with several days of progressive confusion. Patient's son was at bedside to provide initial history. Additional complaints include headache, chills and increased urinary frequency. He appears at baseline cognitive function and overall medically stable for discharge to [facility]. #Confusion/CVA - MRI brain +ve for L side temporoparietal stroke. Started on ASA, Plavix, statin - Carotid Doppler obtained 08/12: R ICA occluded at bifurcation; R common carotid patent; L ICA & common carotid patent; vertebral arteries patent. - Stroke appears cardioembolic. Likely needs anticoagulation but given recent retroperitoneal hematoma, would recommend holding off ~1 month. Will continue aspirin for now but stop Plavix. Should reevaluate bleed vs stroke risk in near future for starting Eliquis. - Can continue Rosuvastatin 20mg daily given most recent LDL was 118. Would recommend rechecking lipids for more up-to-date level and modify statin accordingly to maintain low LDL but >70 - Appears baseline cognitive status has declined over some time, with acute worsening over the last week - Pt at high risk for hospital delirium. Delirium Prevention Measures were used during admission; recommend continuation at SNF. Raising blinds during the day, closing at night Frequent re-orientation Contact with family/friends Explaining procedures/nursing care measures prior to physical contact Correct any hearing and visual impairments Last resort, should patient become more agitated or confused, consider IM Zyprexa - Speech and nutrition were consulted: recommend minced and moist diet IDDSI 5 with thin liquids; meds in carrier (e.g. applesauce); full speech-language and dysphagia eval at SNF for cognitive status, communication, and diet advancement #Fever - Developed 08/11, a/w worsened tachycardia. CXR showed L basilar predominant densities suggestive of PNA vs atelectasis. Procal negative. BCx drawn - prelim results NGTD - Pt was started on empiric Levaquin (d/t anaphylactic allergy to penicillins) IV 750mg q24h. Transitioned to po abx. Continue Levaquin 750mg po daily with la st dose 7/3 AM - At time of discharge, pt is afebrile, vitals are stable within normal range, no leukocytosis #CHF - appears to be compensated - Continue home Lasix 20mg po daily - Continue Metoprolol 50mg po BID #Atrial fibrillation - rate controlled - Continue digoxin; level obtained 08/08 was mildly decreased at 0.6 - Continue Metoprolol 50mg po BID - No anticoagulation due to increased risk for falls, recent trauma/renal laceration #Hypokalemia - Repleted with 40meq KCl on 08/12 - Resolved by time of discharge Total Time Total Time Spent Total Time Spent (In Minutes): <30 Discharge Plan Discharge Items Patient Disposition: Transfer Residential Fac Reason For Visit: CONFUSION Discharge Diagnosis: CVA Condition on Discharge: Fair Activity: Per Instructions section Non-emergency contact: Primary Care Provider Call non-emergency contact if: you have any medication questions and your symptoms worsen Follow-up/Referrals: Sole Ibarra MD [Primary Care Provider] - Diet: Other - See Diet Comment Diet Comment: [employer] rec minced and moist diet IDDSI 5 with thin liquids; meds in carrier Addtl Attending Provider Instructions: Patient is a 83yo male with history of A-fib, CAD, HTN and HLP who presented with several days of progressive confusion. Patient's son was at bedside to provide initial history. Additional complaints include headache, chills and increased urinary frequency. He appears at baseline cognitive function and overall medically stable for discharge to [facility]. #Confusion/CVA - MRI brain +ve for L side temporoparietal stroke. Started on ASA, Plavix, statin - Carotid Doppler obtained 08/12: R ICA occluded at bifurcation; R common carotid patent; L ICA & common carotid patent; vertebral arteries patent. - Stroke appears cardioembolic. Likely needs anticoagulation but given recent retroperitoneal hematoma, would recommend holding off ~1 month. Will continue aspirin for now but stop Plavix. Should reevaluate bleed vs stroke risk in near future for starting Eliquis. - Can continue Rosuvastatin 20mg daily given most recent LDL was 118. Would recommend rechecking lipids for more up-to-date level and modify statin accordingly to maintain low LDL but >70 - Appears baseline cognitive status has declined over some time, with acute worsening over the last week - Pt at high risk for hospital delirium. Delirium Prevention Measures were used during admission; recommend continuation at SNF. Raising blinds during the day, closing at night Frequent re-orientation Contact with family/friends Explaining procedures/nursing care measures prior to physical contact Correct any hearing and visual impairments Last resort, should patient become more agitated or confused, consider IM Zyprexa - Speech and nutrition were consulted: recommend minced and moist diet IDDSI 5 with thin liquids; meds in carrier (e.g. applesauce); full speech-language and dysphagia eval at SNF for cognitive status, communication, and diet advancement #Fever - Developed 08/11, a/w worsened tachycardia. CXR showed L basilar predominant densities suggestive of PNA vs atelectasis. Procal negative. BCx drawn - prelim results NGTD - Pt was started on empiric Levaquin (d/t anaphylactic allergy to penicillins) IV 750mg q24h. Transitioned to po abx. Continue Levaquin 750mg po daily with last dose 7/3 AM - At time of discharge, pt is afebrile, vitals are stable within normal range, no leukocytosis #CHF - appears to be compensated - Continue home Lasix 20mg po daily - Continue Metoprolol 50mg po BID #Atrial fibrillation - rate controlled - Continue digoxin; level obtained 08/08 was mildly decreased at 0.6 - Continue Metoprolol 50mg po BID - No anticoagulation due to increased risk for falls, recent trauma/renal laceration #Hypokalemia - Repleted with 40meq KCl on 08/12 - Resolved by time of discharge Pending Studies at Discharge: Yes Studies:: final blood culture Stand-Alone Forms: My [facility] Skilled Items Patient informed of condition?: Yes DNR: Yes Discharge Level of Care: Skilled Communicable Disease: No Discharge Prognosis: Stable Lines: None Urinary Catheter: No Medications and DC Order Prescriptions: New aspirin [Children's Aspirin] 81 mg Tablet,Chewable 81 mg PO DAILY Qty: 30 0RF levofloxacin 750 mg Tablet 750 mg PO DAILY@1100 Qty: 3 0RF rosuvastatin 20 mg Tablet 20 mg PO QAM Qty: 30 0RF Continued omeprazole 20 mg capsule,delayed release(DR/EC) 20 mg PO DAILY Qty: 90 3RF calcium carbonate-vitamin D3 [Caltrate with Vitamin D3] 600 mg(1,500mg) -800 unit tablet 1 tab PO DAILY gabapentin 300 mg capsule 300 mg PO BID Qty: 60 2RF metoprolol tartrate 50 mg tablet 50 mg PO BID 30 Days Qty: 60 3RF furosemide 20 mg tablet 20 mg PO DAILY docusate sodium 100 mg capsule 100 mg PO BID Rx Instructions: x 14 days only giving one a day digoxin 125 mcg (0.125 mg) tablet 125 mcg PO DAILY acetaminophen 325 mg tablet 975 mg PO TID PRN (Reason: Pain) Rx Instructions: 08/01-Take 3 tables by mouth in the morning and 3 tables at noon and 3 tablets before bedtime. only giving patient 1 acetaminophen when need. He is only have a little pain nitroglycerin 0.4 mg tablet, sublingual 0.4 mg sublingual Q5M PRN (Reason: Chest Pain) Rx Instructions: do not exceed 3 doses per episode oxycodone 5 mg tablet 2.5 mg PO Q4H PRN (Reason: Pain) polyethylene glycol 3350 [Miralax] 17 gram/dose powder 17 g PO DAILY PRN (Reason: Constipation) sennosides [senna] 8.6 mg Tablet 17.2 mg PO AMHS Discharge Orders: Discharge Order (Routine); Ordered 08/13/24 Ordered By: Ifeoma Arredondo Admission Data Admit Date/Time: 08/07/24 23:23 Attending Provider: Sonido Morales Admit Provider: Celsa Sifuentes Primary Care Provider: Sole Ibarra Other Providers: Celsa Sifuentes; [facility] Other Interventions: Discharge Summary Assessment (RN) Last Done: 08/13/24 11:00 Supervising Physician Co-Signing Physician Notes I personally examined the patient and verified all mcbride points of history and exam, discussed case, and agree with decision making with Dr Arredondo For SNF today. Updated SNF physician. Vitals noted, patient resting comfortably and appears in no distress. Breathing unlabored no accessory muscle use good effort. Skin without rashes pallor or icterus. Labs and diagnostics noted. CVAgiven the appearance in the left parieto-occipital as well as anterior left temporal, I would suspect something emboliceither carotid or cardioembolic. His left carotid is clearmaking cardioembolic far more likely. His echocardiogram, however, does show mitral regurgitation making it more likely that Coumadin would be the preferred anticoagulant. This is all complicated by the fact that he had a recent rather major retroperitoneal bleed. currently because of the bleed resuming an anticoagulant is at least temporarily contraindicatedbut over the long-term, the risk-benefit balance is much more nuanced. Given that he has had a stroke that is extremely likely atrial fibrillation related, but given that he has had a major anticoagulation related bleed, over time if he is recovering well it would probably favor cautious resumption of anticoagulation; but at the same time, depending on his and his family's preferences, as well as his course over the next few weeks as it relates to recovery and functional status, the risk of resuming anticoagulation may outweigh the benefits. Updated the physician at [facility] that this will be an open issue. For now aspirin and simvastatin. dispo - SNF today Resident Activity Tracking Resident Involvement: Resident Care Provided Care Provided: Adult Hospital Medicine
[2024-08-13 07:49] VITALS: BP 144/88; PULSE 95; RESP 18
[2024-08-13 09:38] LABS: Hematocrit (blood only) 42.6 % (42.0-52.0); Hemoglobin 14.3 g/dl (14.0-18.0); Mean Corpuscular Hemoglobin 31.0 pg (25.0-34.0); Mean Corpuscular Volume 92.2 fL (80.0-100.0); Platelet Count 263 K/uL (130-400); RDW Standard Deviation 42.3 fL (36.4-46.3); Red Blood Count 4.62 M/uL (4.70-6.10); White Blood Count 7.94 K/ul (4.8-10.8)
[2024-08-13 09:54] LABS: Anion Gap 9.0 (3-11); Blood Urea Nitrogen 11.0 mg/dl (6-23); Calcium 9.0 mg/dl (8.6-10.3); Carbon Dioxide 25.0 mmol/L (21-32); Chloride 98.0 mmol/L (98-107); Creatinine Clr Calc Pharmacy 79.2 ml/min; Glucose 155.0 mg/dl (70-99(Fasting)); Potassium 3.8 mmol/L (3.5-5.1); Sodium 132.0 mmol/L (136-145)
--- NOTE | 2024-08-13 11:21 | XCELERA ---
[id number] [id number]
--- NOTE | 2024-08-13 13:28 | Billing Data ---
Date of Service August 13, 2024 Coding Level of Care Code 88477 IN/OBS DISCH 30 MIN/LESS
== END 2024-08-13 11:01 | DRG 65 ==
LOC: ED 19:48 → 3W 23:23 → SUATTDRO 23:23 → 3W 08-08 00:32